=== PATIENT | male | born 1955 | race Caucasian/White ===

== ENCOUNTER 2023-05-15 12:19 | Day surgery (SDC) | payer MEDICARE ==
[2023-05-15] MEDS ORDERED: SUCCINYLCHOLINE CHLORIDE 200 MG/10 ML VIAL IV ONE (13:48)
[2023-05-15] MEDS ORDERED: LIDOCAINE 2% INJ 20 MG/ML (2 ML VIAL) ONE (13:48)
[2023-05-15] MEDS ORDERED: MIDAZOLAM 2 MG/2 ML VIAL ONE (13:48)
[2023-05-15] MEDS ORDERED: PROPOFOL 10 MG/ML 20 ML VIAL IV ONE (13:48)
[2023-05-15] MEDS ORDERED: fentaNYL (PF) 50 MCG/ML 2 ML AMP ONE (13:48)
[2023-05-15 14:31] VITALS: RESP 16; TEMP 97.1
[2023-05-15 15:50] VITALS: BP 113/63; PULSE 103
--- NOTE | 2023-05-15 18:17 | P.PCN ---
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 with mucous plug Significant narrowing of the left mainstem bronchus with tumor invasion and the tumor invasion involving the left mainstem bronchus, left upper lobe bronchus, left lower lobe bronchus and the secondary neisha on the left Procedure(s) Performed: Flexible bronchoscopy Removal of mucous plug from the left mainstem bronchus Airway inspection Endobronchial biopsies of the left mainstem tumor Endobronchial brushing of left mainstem tumor Bronchioloalveolar lavage of the left left lung Anesthesia: MAHADA Surgeon: Jason Panchal Pathology: other Condition: stable Disposition: same day Operative Findings: Flexible bronchoscopy was done in the endoscopy suite. The patient was intubated and placed on a mechanical ventilation. The intubation process was performed by the anesthesia team and the patient was intubated by a #8 orotracheal tube. Following that, the patient was attached a mechanical ventilator. The flexible bronchoscope was introduced through the orotracheal tube and was advanced into the lower trachea. The tip of the orotracheal tube was seen around 2 cm above the neisha. Examination of the right side included the right mainstem bronchus, right upper lobe bronchus, bronchus intermedius, right lower lobe bronchus and the right middle lobe bronchus and the various 10 segments on the right and this was within normal limits. The left mainstem bronchus was then inspected and was completely plugged with a purulent mucous plug. The mucous plug was removed and the underlying left mainstem bronchus was inspected. The left mainstem bronchus was significantly narrowed by tumor that was circumferentially going around airway and causing significant narrowing of the left mainstem bronchus by reducing its lumen by around 60% of its normal dimen phuc/caliber. The tumor was growing around the airway was extending to the distal limits mainstem bronchus and was involving the secondary neisha causing significant narrowing of the left upper lobe bronchus and the left lower lobe bronchus. I was able to pass my bronchoscope into the left lower lobe bronchus and the left upper lobe bronchus and visualized the various segments on the left than the right. Several segments of the left lower lobe were quite atelectatic. The bronchoscope was then moved to the proximal portion of the left mainstem and the bronchial mucosa was inspected. The mucosa itself was irregular, and there was friable tumor growing circumferentially and extending distally. Endobronchial biopsies were done and several chunks of material was removed on the left mainstem bronchus without any major difficulties. There was some endobronchial bleeding postbiopsy and at that point I did a "saline administration to control the bleeding and adequate hemostasis was achieved. Following that, and the bronchial brushing of the left mainstem bronchus was done extending into the secondary neisha. Subsequently, a bronchial lavage of the left lung was done. A total of 60 mL's of saline was infused into the left mainstem bronchus and around 30 mL of aspirate was obtained and after that essentially bloody. At the completion of the procedure, they left mainstem bronchus was patent, boggy airway was Significantly compromised as mentioned and the caliber of the left mainstem bronchus was induced by around 50-60%. The orifice to the left lower lobe bronchus and the left upper lobe bronchus were also narrowed by more than 50%. Therapeutic airway suctioning was done. The bronchoscope was removed and the patient was extubated and transferred to recovery in stable condition. Samples will be sent for pathologic evaluation.
[2023-05-16] MEDS ORDERED: LACTATED RINGERS 1,000 ML IV SCH (06:00)
== END 2023-05-15 16:15 | disposition home or self-care (01) ==
LOC: ORWHC2ENDO 12:19
PROVIDERS: ATTEND Internal Medicine Critical Care Medicine
DX: C34.02 Malignant neoplasm of left main bronchus (principal); J44.9 Chronic obstructive pulmonary disease, unspecified; F17.200 Nicotine dependence, unspecified, uncomplicated; F12.90 Cannabis use, unspecified, uncomplicated; Z79.51 Long term (current) use of inhaled steroids; Z88.5 Allergy status to narcotic agent
CPT/HCPCS: 31623; 87798 ×3; 87496; 87498; 87529; 88104; 88108; 88305; 88342; 87502; 87634; 88341; 87070; 87205; 87116; 87102; 87206; 31625; 31624; J2250; J0330; J3010; J2704; J2001

== ENCOUNTER → 2023-06-08 | Outpatient (CLI) | payer MEDICARE ==
--- NOTE | 2023-06-08 08:52 | MR ---
EXAMINATION TYPE: MR brain wo/w con DATE OF EXAM: 06/08/2023 8:15 AM CLINICAL INDICATION:Male, 67 years old with history of C34.90; PHH, Lung cancer. COMPARISON: 04/21/2023 PETCT TECHNIQUE: Multi planar, multi sequence imaging was performed through the brain including: T1, T2, In version recovery, susceptibility weighted imaging and gradient echo imaging and Diffusion weighted im aging. The patient was then given intravenous contrast and multi planar, T1 fat-saturation images wer e obtained. IV Contrast: 5.5 cc Gadavist FINDINGS: Cerebral atrophy with proportional dilation of the ventricular system. Diffusion-weighted i maging shows no evidence of restricted diffusion to suggest acute/subacute infarct. Intracranial suzanne rial flow voids are maintained. Midline structures show no abnormality. Scattered foci of high T2 sig nal intensity are seen within the periventricular white matter. The susceptibility weighted images do not reveal any evidence for micro-hemorrhage. After administration of gadolinium, no abnormal enhanc ement is seen. The bone marrow signal is within normal limits. Paranasal sinuses and mastoid air cells: No significant paranasal sinus disease. Visualized orbits: Orbital contents are intact. IMPRESSION: 1. No evidence of intracranial mass, acute/subacute infarct, or abnormal enhancement. No evidence for metastatic disease. 2. Minimal nonspecific white matter changes, likely related to small vessel ischemic disease
== END | disposition home or self-care (01) ==
LOC: RADMRIMAIN 07:24
PROVIDERS: ATTEND Internal Medicine
DX: C34.90 Malignant neoplasm of unspecified part of unspecified bronchus or lung (principal); R90.82 White matter disease, unspecified
CPT/HCPCS: 70553; A9585

== ENCOUNTER 2023-09-08 09:45 | Inpatient (IN) | payer MEDICARE ==
[2023-09-08 10:42] LABS: Anisocytosis Slight; Basophils # (A) 0.1 k/uL (0-0.2); Basophils % (A) 0 %; Eosinophils # (A) 0.1 k/uL (0-0.7); Eosinophils % (A) 0 %; HCT 47.6 % (39.0-53.0); HGB 15.9 gm/dL (13.0-17.5); Lymphocytes # (A) 0.5 k/uL (1.0-4.8); Lymphocytes % (A) 3 %; MCH 32.2 pg (25.0-35.0); MCHC 33.4 g/dL (31.0-37.0); MCV 96.4 fL (80.0-100.0); Mean Platelet Volume 7.7; Monocytes # (A) 0.5 k/uL (0-1.0); Monocytes % (A) 3 %; Neutrophils # (A) 14.8 k/uL (1.3-7.7); Neutrophils % (A) 93 %; Platelet Count 541 k/uL (150-450); RBC 4.94 m/uL (4.30-5.90); RDW 16.3 % (11.5-15.5)
[2023-09-08 10:45] LABS: ALT 18 U/L (4-49); AST 30 U/L (17-59); Alkaline Phosphatase 146 U/L (38-126); Anion Gap 21 mmol/L; Blood Urea Nitrogen 35 mg/dL (9-20); Calcium 8.9 mg/dL (8.4-10.2); Carbon Dioxide 23 mmol/L (22-30); Chloride 83 mmol/L (98-107); Glucose 88 mg/dL (74-99); Magnesium 2.5 mg/dL (1.6-2.3); Potassium 5.4 mmol/L (3.5-5.1); Sodium 127 mmol/L (137-145); Total Bilirubin 1.5 mg/dL (0.2-1.3); Total Protein 6.8 g/dL (6.3-8.2)
[2023-09-08 10:50] LABS: African American GFR (CKD) 58 (>60 ml/min/1.73 sqM); Non-African American GFR(CKD) 50 (>60 ml/min/1.73 sqM)
[2023-09-08 10:53] LABS: NT-Pro-B-Type Natriuretic Pept 4600 pg/mL
--- NOTE | 2023-09-08 11:51 | XR ---
EXAMINATION TYPE: XR chest 2V DATE OF EXAM: 09/08/2023 11:24 AM CLINICAL INDICATION:Male, 68 years old with history of difficulty breathing; PHH COMPARISON: None TECHNIQUE: XR chest 2V Frontal and lateral views of the chest. FINDINGS: Lungs/Pleura: There is no evidence of pleural effusion, focal consolidation, or pneumothorax. Pulmonary vascularity: Unremarkable. Heart/mediastinum: Cardiomediastinal silhouette is unremarkable. Musculoskeletal: No acute osseous pathology. Other findings: Curvilinear lucency compatible the diaphragm with adjacent free air under the diaphra gm is present measuring bilaterally. IMPRESSION: There is free air under the diaphragm further evaluation of the abdomen and pelvis is recommended. Findings communicated to Dr. Carter Kerr MD on 09/08/2023 11:[address] Baldemar Chirinos.
[2023-09-08] MEDS: metroNIDAZOLE-NS PMX 500 MG in SALINE 1 100ML.BAG IVPB SCH ×2 (12:04→20:39)
[2023-09-08] MEDS ORDERED: VANCOMYCIN IV PER PHARMACY 1 EACH MISC MISCELLANE PRN (13:28)
[2023-09-08] MEDS ORDERED: VANCOMYCIN 1,000 MG in SODIUM CHLORIDE 0.9% 250 ML IVPB STA (13:30)
[2023-09-08] MEDS: PIPERACILLIN-TAZOBACTAM 3.375 GM in SODIUM CHLORIDE 0.9% 100 ML IVPB SCH ×2 (13:31→20:39)
[2023-09-08] MEDS ORDERED: SODIUM CHLORIDE 0.9% 500 ML 500 ML IV STA (13:32)
[2023-09-08] MEDS ORDERED: NALOXONE 0.4 MG/ML 1 ML VIAL IV PRN (13:32)
--- NOTE | 2023-09-08 13:33 | CT ---
EXAMINATION TYPE: CT ChestAbdPelvis wo con DATE OF EXAM: 09/08/2023 COMPARISON: Radiograph chest same day HISTORY: 68-year-old male Free air under diaphragm TECHNIQUE: Contiguous axial scanning of the chest, abdomen, and pelvis without IV contrast. Coronal a nd sagittal reconstructions performed. CT DLP: 422.8 mGycm Automated exposure control for dose reduction was used. FINDINGS: Heart normal size without pericardial effusion. Three-vessel coronary artery calcifications. Ectatic ascending aorta 3.6 cm. Conventional arch vessel branching anatomy. No thoracic lymphadenopathy by CT size criteria. There is advanced emphysematous change. Dependent consolidation throughout the left lower lobe and pa tchy changes dependent left upper lobe and lingula as well. Dependent consolidation shows a 6.3 x 2.5 cm oval area of fluid, possible pulmonary abscess. There appears to be destruction of the overlying ninth and 10th posterior ribs. Lesser degree of patchy and confluent consolidation and some groundglass at the right lower lobe and right base. Moderate atherosclerotic calcifications throughout the abdominal aorta and iliac arteries. Noncontrast appearance of the liver, adrenal glands, kidneys, and pancreas show no gross abnormality though lack of IV contrast and underlying mild ascites fluid and anasarca significantly limits evalua tion. Numerous calcified granulomas in the spleen. There is moderate to large free intraperitoneal air. Scattered distended small bowel loops up to 3.6 cm, coronal image 34. Numerous small foci of air are present throughout the pelvis. Unable to exclude some areas of small b owel or sigmoid colonic pneumatosis. No significant stool burden. Mild to moderate pelvic ascites. Bladder is urine distended. Prostate gland borderline enlarged at 4.1 cm wide. Bones: Digital abdomen and lower thoracic spine. Dextroconvex curvature may be positional. IMPRESSION: 1. MODERATE TO LARGE FREE INTRAPERITONEAL AIR. THE EXACT SOURCE IS NOT CLEAR. THERE ARE NUMEROUS SMAL L FOCI OF AIR WITHIN THE PELVIS WHICH COULD REPRESENT SMALL BOWEL OR SIGMOID COLONIC PNEUMATOSIS AND POSSIBLE SITE OF HOLLOW VISCUS PERFORATION. 2. REACTIVE MILD TO MODERATE ABDOMINOPELVIC ASCITES. 3. SIGNIFICANTLY, THERE IS BIBASILAR CONSOLIDATION, LEFT GREATER THAN RIGHT. CORRELATE FOR INFECTIOUS OR ASPIRATION PNEUMONITIS. ON THE LEFT, THERE IS AN INTERNAL AREA OF 6.3 CM FLUID. ADDITIONAL HISTOR Y FROM THE ER AFTER PATIENT BEING TREATED FOR LUNG CANCER. CONSIDER NECROTIC TUMOR (POSSIBLY WITH SUP ERINFECTION) VERSUS PULMONARY ABSCESS. THE FORMER IS SOMEWHAT FAVORED GIVEN DESTRUCTION OF THE OVERLY ING LEFT POSTERIOR NINTH AND 10TH RIBS. BACKGROUND MODERATE TO SEVERE COPD. FINDINGS CALLED TO DR. ELIZABETH IN THE ER AT 1:28 PM.
[2023-09-08] MEDS ORDERED: ALBUTEROL NEBULIZED 2.5 MG/3 ML INHALATION PRN (13:35)
--- NOTE | 2023-09-08 14:26 | ED ---
General Adult HPI - General Chief complaint: Weakness Stated complaint: SIENNA, Weakness Time Seen by Provider: 09/08/23 10:02 Source: patient, RN notes reviewed, old records reviewed Mode of arrival: ambulatory Limitations: no limitations - History of Present Illness Initial comments: Patient is a 68-year-old male with past medical history remarkable for lung cancer, currently undergoing chemotherapy who presents emergency Department complaining of lower extremity edema, shortness of breath. Last received chemo within the last 1-2 weeks. States his symptoms have been ongoing for the last 3 weeks but difficulty in breathing and leg swelling worse over the last 4-5 days. Denies any fevers, chills, significant cough. Endorses orthopnea. Denies PND. Presents for further evaluation at this time. Denies chest pain or cardiac history. - Related Data Home Medications Medication Instructions Recorded Confirmed Albuterol Inhaler [Ventolin Hfa 1 - 2 puff INHALATION RT-QID PRN 05/12/23 09/08/23 Inhaler] Morphine Sulfate ER [Ms Contin] 15 mg PO BID@0600,1800 09/08/23 09/08/23 Sennosides/Docusate Sodium [Senna 2 tab PO BID@0600,1800 09/08/23 09/08/23 Plus 8.6-50 mg Tablet] Allergies Allergy/AdvReac Type Severity Reaction Status Date / Time codeine Allergy Rash/Hives Verified 09/08/23 12:01 Review of Systems ROS Statement: Those systems with pertinent positive or pertinent negative responses have been documented in the HPI. Review of Systems: CONST: Denies fever EYES: Denies blurry vision ENT: Denies nasal congestion C/V: Denies Chest pain RESP: Endorses shortness of breath GI: Denies abdominal pain : Denies dysuria SKIN: Denies rash. MSK: Denies joint pain. NEURO: Denies headache ROS Other: All systems not noted in ROS Statement are negative. Past Medical History Past Medical History: Cancer Additional Past Medical History / Comment(s): uses albuterol to "Loosen up his lungs"; lung cancer History of Any Multi-Drug Resistant Organisms: None Reported Past Surgical History: Orthopedic Surgery, Tonsillectomy Additional Past Surgical History / Comment(s): fx humurus repair on lft Past Anesthesia/Blood Transfusion Reactions: No Reported Reaction Past Psychological History: No Psychological Hx Reported Smoking Status: Former smoker Past Alcohol Use History: Occasional General Exam - General Exam Comments Initial Comments: General: Appears in no acute distress. Patient is cachectic. HEAD: Normal with no signs of head trauma. EYES: PERRLA, EOMI, conjunctiva normal, no discharge. ENT: Hearing grossly intact, normal oropharynx. RESPIRATORY: Increased work of breathing. Hypoxic on remained 85-86%. Coarse breath sounds bilaterally. C/V: Regular rate and rhythm. S1 and S2 auscultated, no edema, peripheral pulses 2+ and intact throughout ABD: Abd is soft, nontender, nondistended EXT: Normal range of motion, no obvious deformity SKIN: No rashes or lesions observed on exposed skin. NEURO: Alert and oriented 4. Limitations: no limitations Course Vital Signs 09/08/23 09/08/23 09/08/23 09:47 10:44 10:50 Temperature 96.8 F L Pulse Rate 87 98 96 Pulse Rate [ Social Insurance Analyst ] Respiratory 18 25 H 20 Rate Blood Pressure 98/67 99/60 O2 Sat by Pulse 86 L 93 L 96 Oximetry 09/08/23 09/08/23 09/08/23 11:00 11:51 12:00 Temperature Pulse Rate 87 97 Pulse Rate [ 92 Social Insurance Analyst ] Respiratory 18 22 22 Rate Blood Pressure 99/60 103/62 O2 Sat by Pulse 96 96 Oximetry 09/08/23 09/08/23 09/08/23 13:00 13:31 14:00 Temperature Pulse Rate 90 91 85 Pulse Rate [ Social Insurance Analyst ] Respiratory 18 20 15 Rate Blood Pressure 92/63 101/70 101/70 O2 Sat by Pulse 97 92 L 85 L Oximetry Medical Decision Making - Medical Decision Making Was pt. sent in by a medical professional or institution (, PA, ARBORICULTURIST, urgent care, hospital, or fci...) When possible be specific @ -No Did you speak to anyone other than the patient for history (EMS, parent, family, police, friend...)? What history was obtained from this source @ -No Did you review nursing and triage notes (agree or disagree)? Why? @ -I reviewed and agree with nursing and triage notes Were old charts reviewed (outside hosp., previous admission, EMS record, old EKG, old radiological studies, urgent care reports/EKG's, fci records)? Report findings @ -Old charts reviewed Differential Diagnosis (chest pain, altered mental status, abdominal pain women, abdominal pain men, vaginal bleeding, weakness, fever, dyspnea, syncope, headache, dizziness, GI bleed, back pain, seizure, CVA, palpatations, mental health, musculoskeletal)? @ -Differential Dyspnea: Coronary syndrome, arrhythmia, tamponade, asthma, COPD, pulmonary embolism, pneumonia, pneumothorax, pulmonary effusion, anaphylaxis, diabetic ketoacidosis, flailed chest, pulmonary contusion, diaphragmatic rupture, anemia, neuromuscular, this is not meant to be an all-inclusive list. EKG interpreted by me (3pts min.). @ -As above X-rays interpreted by me (1pt min.). @ -Chest x-ray does reveal what appears to be pulmonary vascular congestion as well as the left lung mass in addition to free air under the diaphragm. CT interpreted by me (1pt min.). @ -CT chest abdomen pelvis remarkable for intraperitoneal free air without exact source. May have a sigmoid colonic pneumatosis. No obvious site for the hollow viscus perforation. Radiology also concerned for possible necrotic tumor on the left. U/S interpreted by me (1pt. min.). @ -None done What testing was considered but not performed or refused? (CT, X-rays, U/S, labs)? Why? @ -None What meds were considered but not given or refused? Why? @ -Considered additional IV fluids over patient's lactic acid cleared with oxygen as well as a small fluid bolus. Patient has what appears to be CHF currently and we will continue to closely monitor his volume overload him. Did you discuss the management of the patient with other professionals (professionals i.e. , PA, ARBORICULTURIST, lab, RT, psych nurse, social organization professor, analytics lead, teacher, upscale security officer, rifle case repairer)? Give summary @ -Discussed with Dr. Rooney the on-call surgeon who reportedly patient for the operating room. Was in agreement with broad-spectrum antibiotics, and requested IV fluids which were administered. However, we will closely monitor additional fluids due to concern for CHF that she was in agreement with this lines lactic acid improved. I spoke with Dr. Culver the patient's PCP who was in agreement with the plan for medical consultation. Was smoking cessation discussed for >3mins.? @ -No Was critical care preformed (if so, how long)? @ -yes, 52 minutes Were there social determinants of health that impacted care today? How? (Homelessness, low income, unemployed, alcoholism, drug addiction, transportation, low edu. Level, literacy, decrease access to med. care, group home, rehab)? @ -No Was there de-escalation of care discussed even if they declined (Discuss DNR or withdrawal of care, Hospice)? DNR status @ -Yes, confirmed full CODE STATUS. What co-morbidities impacted this encounter? (DM, HTN, Smoking, COPD, CAD, Cancer, CVA, ARF, Chemo, Hep., AIDS, mental health diagnosis, sleep apnea, morbid obesity)? @ -Lung cancer Was patient admitted / discharged? Hospital course, mention meds given and route, prescriptions, significant lab abnormalities, going to OR and other pertinent info. @ -Based on the patient's presentation and physical exam, I'm concerned for cardio pulmonary etiology for his current symptoms. We will obtain chest x-ray, cardiopulmonary labs, vital signs. He was placed on oxygen and did respond well. Patient agreement this plan. Vital signs improved on oxygen. Patient's laboratory studies are remarkable for elevated BNP, leukocytosis of 16, lactic acidosis of 3.3. Patient also has a mild hyperkalemia of 5.4 as well as hyponatremia of 127. Patient has a acute kidney injury as well. Chest x-ray showed free air under the diaphragm. I discussed this with the patient we will obtain CT chest abdomen pelvis. At this time I did speak with Dr. Rooney who was in agreement with the plan for CT. Patient started on broad- spectrum antibiotics, blood cultures sent. Lactic acidosis likely secondary to hypoxia but Dr. Rooney requested 500 mL fluid bolus which was administered at this time. We will repeat lactic acid is well. He was in agreement this plan. CT revealed no obvious source for the intra-abdominal free air. Patient does have what appears to be a necrotic lung tumor. Patient's lactic acid did improve, and we will hold further fluids for now in the ER. Discussed the results of Dr. Rooney as well as the patient. Patient was boarded for the operating room. Patient in agreement this plan. He did confirm he is full code. I spoke the patient's PCP who was consulted for medical management he was in agreement this plan Dr. Culver. I also consulted cardiology for suspected new onset CHF as well as the patient's oncologist Dr. Lazcano. Undiagnosed new problem with uncertain prognosis? @ -No Drug Therapy requiring intensive monitoring for toxicity (Heparin, Nitro, Insulin, Cardizem)? @ -No Were any procedures done? @ -No Diagnosis/symptom? @ -CHF, volume overload, hypoxic respiratory failure, pneumoperitoneum,PAM Acute, or Chronic, or Acute on Chronic? @ -Acute Uncomplicated (without systemic symptoms) or Complicated (systemic symptoms)? @ -Complicated. Side effects of treatment? @ -No Exacerbation, Progression, or Severe Exacerbation? @ -No Poses a threat to life or bodily function? How? (Chest pain, USA, ID, pneumonia, PE, COPD, DKA, ARF, appy, cholecystitis, CVA, Diverticulitis, Homicidal, Suicidal, threat to staff... and all critical care pts) @ -Yes Diagnosis/symptom? @ -lung cancer Acute, or Chronic, or Acute on Chronic? @ -Chronic Uncomplicated (without systemic symptoms) or Complicated (systemic symptoms)? @ -Complicated Side effects of treatment? @ -none Exacerbation, Progression, or Severe Exacerbation] @ -no Poses a threat to life or bodily function? @ -Yes - Lab Data Result diagrams: 09/08/23 10:25 09/08/23 10:25 Lab Results 09/08/23 09/08/23 09/08/23 Range/Units 10:25 10:25 10:25 WBC 16.0 H (3.8-10.6) k/uL RBC 4.94 (4.30-5.90) m/uL Hgb 15.9 (13.0-17.5) gm/dL Hct 47.6 (39.0-53.0) % MCV 96.4 (80.0-100.0) fL MCH 32.2 (25.0-35.0) pg MCHC 33.4 (31.0-37.0) g/dL RDW 16.3 H (11.5-15.5) % Plt Count 541 H (150-450) k/uL MPV 7.7 Neutrophils % 93 % Lymphocytes % 3 % Monocytes % 3 % Eosinophils % 0 % Basophils % 0 % Neutrophils # 14.8 H (1.3-7.7) k/uL Lymphocytes # 0.5 L (1.0-4.8) k/uL Monocytes # 0.5 (0-1.0) k/uL Eosinophils # 0.1 (0-0.7) k/uL Basophils # 0.1 (0-0.2) k/uL Manual Slide Review Performed Anisocytosis Slight PT 11.0 (10.0-12.5) sec INR 1.0 (<1.2) APTT 27.0 (22.0-30.0) sec Sodium 127 L (137-145) mmol/L Potassium 5.4 H (3.5-5.1) mmol/L Chloride 83 L (98-107) mmol/L Carbon Dioxide 23 (22-30) mmol/L Anion Gap 21 mmol/L BUN 35 H (9-20) mg/dL Creatinine 1.43 H (0.66-1.25) mg/dL Est GFR (CKD-EPI)AfAm 58 (>60 ml/min/1.73 sqM) Est GFR (CKD-EPI)NonAf 50 (>60 ml/min/1.73 sqM) Glucose 88 (74-99) mg/dL Lactic Ac Sepsis Rflx Plasma Lactic Acid David (0.7-2.0) mmol/L Calcium 8.9 (8.4-10.2) mg/dL Magnesium 2.5 H (1.6-2.3) mg/dL Total Bilirubin 1.5 H (0.2-1.3) mg/dL AST 30 (17-59) U/L ALT 18 (4-49) U/L Alkaline Phosphatase 146 H (38-126) U/L Troponin I (0.000-0.034) ng/mL NT-Pro-B Natriuret Pep 4600 pg/mL Total Protein 6.8 (6.3-8.2) g/dL Albumin 3.0 L (3.5-5.0) g/dL Influenza Type A (PCR) (Not Detectd) Influenza Type B (PCR) (Not Detectd) RSV (PCR) (Not Detectd) SARS-CoV-2 (PCR) (Not Detectd) 09/08/23 09/08/23 09/08/23 Range/Units 10:25 10:25 10:25 WBC (3.8-10.6) k/uL RBC (4.30-5.90) m/uL Hgb (13.0-17.5) gm/dL Hct (39.0-53.0) % MCV (80.0-100.0) fL MCH (25.0-35.0) pg MCHC (31.0-37.0) g/dL RDW (11.5-15.5) % Plt Count (150-450) k/uL MPV Neutrophils % % Lymphocytes % % Monocytes % % Eosinophils % % Basophils % % Neutrophils # (1.3-7.7) k/uL Lymphocytes # (1.0-4.8) k/uL Monocytes # (0-1.0) k/uL Eosinophils # (0-0.7) k/uL Basophils # (0-0.2) k/uL Manual Slide Review Anisocytosis PT (10.0-12.5) sec INR (<1.2) APTT (22.0-30.0) sec Sodium (137-145) mmol/L Potassium (3.5-5.1) mmol/L Chloride (98-107) mmol/L Carbon Dioxide (22-30) mmol/L Anion Gap mmol/L BUN (9-20) mg/dL Creatinine (0.66-1.25) mg/dL Est GFR (CKD-EPI)AfAm (>60 ml/min/1.73 sqM) Est GFR (CKD-EPI)NonAf (>60 ml/min/1.73 sqM) Glucose (74-99) mg/dL Lactic Ac Sepsis Rflx Plasma Lactic Acid David 3.3 H* (0.7-2.0) mmol/L Calcium (8.4-10.2) mg/dL Magnesium (1.6-2.3) mg/dL Total Bilirubin (0.2-1.3) mg/dL AST (17-59) U/L ALT (4-49) U/L Alkaline Phosphatase (38-126) U/L Troponin I 0.017 (0.000-0.034) ng/mL NT-Pro-B Natriuret Pep pg/mL Total Protein (6.3-8.2) g/dL Albumin (3.5-5.0) g/dL Influenza Type A (PCR) Not Detected (Not Detectd) Influenza Type B (PCR) Not Detected (Not Detectd) RSV (PCR) Not Detected (Not Detectd) SARS-CoV-2 (PCR) Not Detected (Not Detectd) 09/08/23 Range/Units 11:27 WBC (3.8-10.6) k/uL RBC (4.30-5.90) m/uL Hgb (13.0-17.5) gm/dL Hct (39.0-53.0) % MCV (80.0-100.0) fL MCH (25.0-35.0) pg MCHC (31.0-37.0) g/dL RDW (11.5-15.5) % Plt Count (150-450) k/uL MPV Neutrophils % % Lymphocytes % % Monocytes % % Eosinophils % % Basophils % % Neutrophils # (1.3-7.7) k/uL Lymphocytes # (1.0-4.8) k/uL Monocytes # (0-1.0) k/uL Eosinophils # (0-0.7) k/uL Basophils # (0-0.2) k/uL Manual Slide Review Anisocytosis PT (10.0-12.5) sec INR (<1.2) APTT (22.0-30.0) sec Sodium (137-145) mmol/L Potassium (3.5-5.1) mmol/L Chloride (98-107) mmol/L Carbon Dioxide (22-30) mmol/L Anion Gap mmol/L BUN (9-20) mg/dL Creatinine (0.66-1.25) mg/dL Est GFR (CKD-EPI)AfAm (>60 ml/min/1.73 sqM) Est GFR (CKD-EPI)NonAf (>60 ml/min/1.73 sqM) Glucose (74-99) mg/dL Lactic Ac Sepsis Rflx Y Plasma Lactic Acid David (0.7-2.0) mmol/L Calcium (8.4-10.2) mg/dL Magnesium (1.6-2.3) mg/dL Total Bilirubin (0.2-1.3) mg/dL AST (17-59) U/L ALT (4-49) U/L Alkaline Phosphatase (38-126) U/L Troponin I (0.000-0.034) ng/mL NT-Pro-B Natriuret Pep pg/mL Total Protein (6.3-8.2) g/dL Albumin (3.5-5.0) g/dL Influenza Type A (PCR) (Not Detectd) Influenza Type B (PCR) (Not Detectd) RSV (PCR) (Not Detectd) SARS-CoV-2 (PCR) (Not Detectd) - EKG Data -: EKG Interpreted by Me EKG Comments: 12-lead Electrocardiogram Interpretation Note EKG was reviewed and interpreted by myself. 12-lead ECG performed at 1002 is interpreted by me as revealing normal sinus rhythm at a rate of 93 beats per minute. [place] is normal. CT interval is 170 ms, QRS durations 88 ms, QTc is 397 ms.. There were no ST or T wave abnormalities to suggest myocardial ischemia or injury. R wave progression across the precordium was satisfactory. By my interpretation this EKG is non-diagnostic for acute ischemia. A good deal of motion artifact in lead V3. Critical Care Time Critical Care Time: Yes Total Critical Care Time: 52 Disposition Clinical Impression: Hypoxic respiratory failure, Hyponatremia, CHF (congestive heart failure), PAM (acute kidney injury), Pneumoperitoneum of unknown etiology, Lung cancer Disposition: ADMITTED IP TO THIS HOSP Condition: Serious Time of Disposition: 13:20
[2023-09-08] MEDS ORDERED: SODIUM CHLORIDE 0.9% 1,000 ML IV ONE ×4 (14:30→18:00)
[2023-09-08] MEDS ORDERED: MIDAZOLAM 2 MG/2 ML VIAL IVP ONE (14:45)
[2023-09-08] MEDS ORDERED: fentaNYL (PF) 50 MCG/1 ML VIAL IVP ONE (14:45)
[2023-09-08] MEDS ORDERED: LIDOCAINE 1% INJ 10MG/ML (20 ML MDV) ONE (15:30)
[2023-09-08] MEDS ORDERED: PROPOFOL 10 MG/ML 20 ML VIAL IV ONE (15:30)
[2023-09-08] MEDS ORDERED: PHENYLEPHRINE 10 MG/ML VIAL ONE (15:30)
[2023-09-08] MEDS ORDERED: fentaNYL (PF) 50 MCG/ML 2 ML AMP ONE (15:30)
[2023-09-08] MEDS ORDERED: MIDAZOLAM 2 MG/2 ML VIAL ONE (15:30)
[2023-09-08] MEDS ORDERED: ROCURONIUM 10 MG/ML (5 ML VIAL) IV ONE (15:30)
--- NOTE | 2023-09-08 15:33 | P.GSHP ---
History of Present Illness H&P Date: 09/08/23 Chief Complaint: Pneumoperitoneum 68-year-old male presents to the ER with weakness. Patient has had chronic shortness of breath for the last several months. Diagnosed over the summer with left lung cancer. Underwent radiation and currently on chemotherapy. Apparently has had significant issues with constipation. Over the last 1-2 weeks has had vague abdominal pain. Came to the hospital today for closer evaluation. Much of the history obtained from the family. Patient had x-rays showing large volume free air. CAT scan then performed showing some ascites along with large volume hemoperitoneum. No bowel contrast was utilized. Patient's BMI is quite low. There is no visceral fat. Multiple small bubbles in the pelvis suggest possible colonic source of perforation. Patient with lower extremity edema and tachypnea. Initially there was concern for CHF. A fter discussion with ER fluid boluses were initiated. Patient was started on broad-spectrum antibiotics. Patient is afebrile. No tachycardia. - Review of Systems Comment: The patient denies any acute changes in vision or hearing, no dysphagia or odynophagia, no chest pain or no dysuria or hematuria, no headache, no runny nose, no rectal bleeding or melena, no unexplained weight loss Past Medical History Past Medical History: Cancer Additional Past Medical History / Comment(s): uses albuterol to "Loosen up his lungs"; lung cancer History of Any Multi-Drug Resistant Organisms: None Reported Past Surgical History: Orthopedic Surgery, Tonsillectomy Additional Past Surgical History / Comment(s): fx humurus repair on lft Past Anesthesia/Blood Transfusion Reactions: No Reported Reaction Past Psychological History: No Psychological Hx Reported Smoking Status: Former smoker Past Alcohol Use History: Occasional Medications and Allergies Home Medications Medication Instructions Recorded Confirmed Type Albuterol Inhaler [Ventolin Hfa 1 - 2 puff INHALATION RT-QID PRN 05/12/23 09/08/23 History Inhaler] Morphine Sulfate ER [Ms Contin] 15 mg PO BID@0600,1800 09/08/23 09/08/23 History Sennosides/Docusate Sodium [Senna 2 tab PO BID@0600,1800 09/08/23 09/08/23 History Plus 8.6-50 mg Tablet] Allergies Allergy/AdvReac Type Severity Reaction Status Date / Time codeine Allergy Rash/Hives Verified 09/08/23 12:01 Surgical - Exam Vital Signs Temp Pulse Resp BP Pulse Ox 96.8 F L 87 18 98/67 86 L 09/08/23 09:47 09/08/23 09:47 09/08/23 09:47 09/08/23 09:47 09/08/23 09:47 Physical exam: General: Well-developed, severely malnourished appearing HEENT: Normocephalic, sclerae nonicteric Abdomen: Mild distention, moderate diffuse tenderness Extremities: Mottled lower extremities with bruising upper extremities from recent blood draws Neuro: Mildly confused Results - Labs 09/08/23 10:25 09/08/23 10:25 Abnormal Lab Results - Last 24 Hours (Table) 09/08/23 09/08/23 09/08/23 Range/Units 10:25 10:25 10:25 WBC 16.0 H (3.8-10.6) k/uL RDW 16.3 H (11.5-15.5) % Plt Count 541 H (150-450) k/uL Neutrophils # 14.8 H (1.3-7.7) k/uL Lymphocytes # 0.5 L (1.0-4.8) k/uL Sodium 127 L (137-145) mmol/L Potassium 5.4 H (3.5-5.1) mmol/L Chloride 83 L (98-107) mmol/L BUN 35 H (9-20) mg/dL Creatinine 1.43 H (0.66-1.25) mg/dL Plasma Lactic Acid David 3.3 H* (0.7-2.0) mmol/L Magnesium 2.5 H (1.6-2.3) mg/dL Total Bilirubin 1.5 H (0.2-1.3) mg/dL Alkaline Phosphatase 146 H (38-126) U/L Albumin 3.0 L (3.5-5.0) g/dL Diabetes panel 09/08/23 Range/Units 10:25 Sodium 127 L (137-145) mmol/L Potassium 5.4 H (3.5-5.1) mmol/L Chloride 83 L (98-107) mmol/L Carbon Dioxide 23 (22-30) mmol/L BUN 35 H (9-20) mg/dL Creatinine 1.43 H (0.66-1.25) mg/dL Glucose 88 (74-99) mg/dL Calcium 8.9 (8.4-10.2) mg/dL AST 30 (17-59) U/L ALT 18 (4-49) U/L Alkaline Phosphatase 146 H (38-126) U/L Total Protein 6.8 (6.3-8.2) g/dL Albumin 3.0 L (3.5-5.0) g/dL Calcium panel 09/08/23 Range/Units 10:25 Calcium 8.9 (8.4-10.2) mg/dL Albumin 3.0 L (3.5-5.0) g/dL Pituitary panel 09/08/23 Range/Units 10:25 Sodium 127 L (137-145) mmol/L Potassium 5.4 H (3.5-5.1) mmol/L Chloride 83 L (98-107) mmol/L Carbon Dioxide 23 (22-30) mmol/L BUN 35 H (9-20) mg/dL Creatinine 1.43 H (0.66-1.25) mg/dL Glucose 88 (74-99) mg/dL Calcium 8.9 (8.4-10.2) mg/dL Adrenal panel 09/08/23 Range/Units 10:25 Sodium 127 L (137-145) mmol/L Potassium 5.4 H (3.5-5.1) mmol/L Chloride 83 L (98-107) mmol/L Carbon Dioxide 23 (22-30) mmol/L BUN 35 H (9-20) mg/dL Creatinine 1.43 H (0.66-1.25) mg/dL Glucose 88 (74-99) mg/dL Calcium 8.9 (8.4-10.2) mg/dL Total Bilirubin 1.5 H (0.2-1.3) mg/dL AST 30 (17-59) U/L ALT 18 (4-49) U/L Alkaline Phosphatase 146 H (38-126) U/L Total Protein 6.8 (6.3-8.2) g/dL Albumin 3.0 L (3.5-5.0) g/dL Assessment and Plan (1) Pneumoperitoneum of unknown etiology Narrative/Plan: 68-year-old male with pneumoperitoneum and suspected bowel perforation. Options reviewed with patient and family in detail. We'll proceed with exploratory laparotomy at this time. Possible need for bowel resection and/or ostomy based on intraoperative findings. Risks of bleeding, infection, abscess, respiratory and cardiac failure, intraoperative all discussed in detail. They understand and wish to proceed. Current Visit: Yes Status: Acute Code(s): K66.8 - OTHER SPECIFIED DISORDERS OF PERITONEUM SNOMED Code(s): 76980476
--- NOTE | 2023-09-08 15:48 | P.CNPUL ---
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 He received 1 week of radiation therapy and is currently receiving chemotherapy. He presented to the emergency room earlier today with complaints of abdominal pain for the past 1-2 weeks. Chest x-ray revealed free air under the diaphragm. Computed tomography scan of the chest abdomen pelvis revealed moderate to large free intraperitoneal air. Exact source is unclear. There are numerous small foci of air within the pelvis which could represent small bowel or sigmoid colonic pneumatosis and possible site of hollow viscus perforation. There is reactive mild to moderate abdominopelvic ascites. There is bibasilar consolidation left greater than right. There is an internal area of 6.3 cm fluid. Possibly related to known lung cancer. Consider necrotic tumor versus pulmonary abscess.. Evidence of destruction of the overlying left posterior ninth and 10th ribs. Moderate to severe COPD. Count 16.0. Hemoglobin 15.9. Platelets 541. Sodium 127. Potassium 5.4. Bicarb 23. BUN 35. Creatinine 1.43. Lactic acid 3.3. ProBNP 4600. Viral screen negative. Alessandro tubbs will be taken urgently to the operating room. He most likely will require prolonged mechanical ventilation postoperatively and we're consulted for the same. He is seen in the preoperative area. He is quite cachectic. BMI of 16.2 kg/m. He is awake and alert. He does have abdominal discomfort. He denies any worsening shortness of breath, cough or congestion. He is maintaining O2 saturations in the 90s on 2 L/m per nasal cannula. At one point he was 85% saturations on room air. He has an albuterol HFA that he uses at home. He is not oxygen dependent. Family is at the bedside. Review of Systems REVIEW OF SYSTEMS: CONSTITUTIONAL: Denies any recent significant weight loss or weight gain. EYES: Denies change in vision. EARS, NOSE, MOUTH, THROAT: Denies headaches, denies sore throat. CARDIOVASCULAR: Denies chest pain, palpitations or syncopal episodes. RESPIRATORY: Denies shortness of breath, cough, congestion or hemoptysis. GASTROINTESTINAL: Positive for abdominal pain and distention. GENITOURINARY: Denies hematuria, denies infections. MUSKULOSKELETAL: Denies pain, denies swelling. INTEGUMENTARY: Denies rash, denies eczema. NEUROLOGICAL: Denies recent memory loss, no recent seizure activity. PSYCHIATRIC: Denies anxiety, denies depression. HEMATOLOGIC/LYMPHATIC: Denies anemia, denies enlarged lymph nodes. Past Medical History Past Medical History: Cancer Additional Past Medical History / Comment(s): uses albuterol to "Loosen up his lungs"; lung cancer History of Any Multi-Drug Resistant Organisms: None Reported Past Surgical History: Orthopedic Surgery, Tonsillectomy Additional Past Surgical History / Comment(s): fx humurus repair on lft Past Anesthesia/Blood Transfusion Reactions: No Reported Reaction Past Psychological History: No Psychological Hx Reported Smoking Status: Former smoker Past Alcohol Use History: Occasional Medications and Allergies Home Medications Medication Instructions Recorded Confirmed Type Albuterol Inhaler [Ventolin Hfa 1 - 2 puff INHALATION RT-QID PRN 05/12/23 09/08/23 History Inhaler] Morphine Sulfate ER [Ms Contin] 15 mg PO BID@0600,1800 09/08/23 09/08/23 History Sennosides/Docusate Sodium [Senna 2 tab PO BID@0600,1800 09/08/23 09/08/23 History Plus 8.6-50 mg Tablet] Allergies Allergy/AdvReac Type Severity Reaction Status Date / Time codeine Allergy Rash/Hives Verified 09/08/23 12:01 Physical Exam Vitals: Vital Signs Temp Pulse Pulse Resp BP Pulse Ox 09/08/23 14:00 85 15 101/70 85 L 09/08/23 13:31 91 20 101/70 92 L 09/08/23 13:00 90 18 92/63 97 09/08/23 12:00 97 22 103/62 96 09/08/23 11:51 92 22 09/08/23 11:00 87 18 99/60 96 09/08/23 10:50 96 20 99/60 96 09/08/23 10:44 98 25 H 93 L 09/08/23 09:47 96.8 F L 87 18 98/67 86 L Intake and Output 09/08/23 09/08/23 09/08/23 06:59 14:59 22:59 Other: Weight 51.256 kg GENERAL EXAM: Alert, weak, cachectic 68-year-old male, appears older than stated age, on 2 L nasal cannula. HEAD: Normocephalic. EYES: Normal reaction of pupils, equal size. NOSE: Clear with pink turbinates. THROAT: No erythema or exudates. NECK: No masses, no JVD. Right IJ triple-lumen catheter in place. CHEST: No chest wall deformity. LUNGS: Equal air entry with few scattered rhonchi bilaterally. CVS: S1 and S2 normal with no audible murmur, regular rhythm. ABDOMEN: Tender to palpation, distended. SPINE: No scoliosis or deformity SKIN: No rashes CENTRAL NERVOUS SYSTEM: No focal deficits, tone is normal in all 4 extremities. EXTREMITIES: There is no peripheral edema. No clubbing, no cyanosis. Peripheral pulses are intact. Results - Laboratory Findings CBC and BMP: 09/08/23 10:25 09/08/23 10:25 PT/INR, D-dimer PT 11.0 sec (10.0-12.5) 09/08/23 10:25 INR 1.0 (<1.2) 09/08/23 10:25 Abnormal lab findings: Abnormal Labs 09/08/23 09/08/23 09/08/23 10:25 10:25 10:25 WBC 16.0 H RDW 16.3 H Plt Count 541 H Neutrophils # 14.8 H Lymphocytes # 0.5 L Sodium 127 L Potassium 5.4 H Chloride 83 L BUN 35 H Creatinine 1.43 H Plasma Lactic Acid David 3.3 H* Magnesium 2.5 H Total Bilirubin 1.5 H Alkaline Phosphatase 146 H Albumin 3.0 L - Diagnostic Findings Chest x-ray: image reviewed CT scan - chest: image reviewed Assessment and Plan Assessment: Abdominal pain secondary to moderate to large free intraperitoneal air. The exact source is not clear. There are numerous small foci of air within the pelvis which could represent small bowel or sigmoid colonic pneumatosis and possible site of follow viscus perforation. 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 Computed tomography scan of the chest reveals bibasilar consolidation, left greater than right. Correlate for infectious or aspiration pneumonitis. On the left there is an internal area of 6.3 cm fluid. Consider necrotic tumor possibly with superinfection versus pulmonary abscess. There is destruction of the overlying left posterior ninth and 10th ribs Moderate to severe chronic obstructive pulmonary disease Former smoker Severe cachexia with a BMI of 16.2 kg per metered squared Plan: The patient was seen and evaluated Chest x-ray, computed tomography scan of the chest abdomen and pelvis, labs and medications reviewed Patient will be taken urgently to the operating room Plan is to remain on the mechanical ventilator He will be admitted to the intensive care unit Family is at the bedside and aware of the critical nature of his illness We will continue to follow and make further recommendations based on his clinical status I have personally seen and examined the patient, performed the documentation and the assessment and plan as written. Number of minutes spent on the visit: 20.
[2023-09-08] MEDS ORDERED: VANCOMYCIN 1,000 MG in SODIUM CHLORIDE 0.9% 250 ML IVPB SCH (17:00)
[2023-09-08] MEDS ORDERED: propofoL 100 ML IV ONE (17:16)
[2023-09-08 17:19] LABS: Glucose,Whole Blood 81 mg/dL (70-110)
[2023-09-08] MEDS ORDERED: HYDROmorphone 1 MG/ML 1 ML SYRINGE IVP PRN (17:21)
--- NOTE | 2023-09-08 17:34 | P.OP ---
Date of Procedure: 09/08/23 Procedure(s) Performed: PREOPERATIVE DIAGNOSIS: Pneumoperitoneum POSTOPERATIVE DIAGNOSIS: Pneumoperitoneum with abdominal abscess and peritonitis PROCEDURE: Exploratory laparotomy, drainage abdominal abscess with lysis of adhesions SURGEON: Toribio EBL: 25 mL ANESTHESIA: Gen. COMPLICATIONS: None OPERATIVE PROCEDURE: Patient placed on the operating table in the supine position. The patient was placed under general anesthesia. The abdomen was prepped and draped sterilely. A vertical incision was made in the midabdomen. Entrance into the abdominal cavity place using electrocautery. A large volume of air was evacuated. The patient had a large volume of purulent fluid within the abdominal cavity. The majority of the purulent fluid was present in the pelvis. The incision was lengthened inferiorly. The Annie retractor was utilized. The patient had diffuse peritonitis with multiple interloop abscesses present. Blunt dissection ensued mobilizing all of the small bowel that was adherent to itself. The small bowel was ran from the ligament of Treitz to the ileocecal valve without evidence of ischemic changes or perforation. The appendix cecum and ascending transverse and descending colon appeared normal without evidence of ischemic changes or perforation. The sigmoid colon was mobilized. There were some adhesions holding the sigmoid colon against the pelvic sidewall. There was a fibrinous peel that was removed. There was no visible perforation or ischemic changes present. There was no evidence of obstruction at the level of the rectosigmoid. The abdomen was thoroughly irrigated with saline. The stomach and duodenal sweep was inspected and appeared normal. The patient's gallbladder was slightly distended without perforation. The patient had a single firm 1.5 cm nodule at the anterior aspect of the right lobe of the liver that appeared suspicious for possible neoplastic change. This was not easily amenable to biopsy. A total of 4 L were used to irrigate the abdomen. No further purulence was seen. I placed a drain in the pelvis. This exited from the right side of the abdomen and was sutured to the skin using a 3-0 silk stitch. No bowel resection took place as I was unable to identify a site of perforation. The abdomen was then closed using 2 separate ru nning double-stranded #1 PDS sutures. Skin was reapproximated loosely using maurisio. Sterile dressing was applied. DISPOSITION: Stable to recovery room
--- NOTE | 2023-09-08 17:46 | XR ---
EXAMINATION TYPE: XR chest 1V portable DATE OF EXAM: 09/08/2023 5:41 PM CLINICAL INDICATION:Male, 68 years old with history of Tube placement; [facility] COMPARISON: Chest radiographs from TECHNIQUE: XR chest 1V portable Frontal view of the chest. FINDINGS: Lungs/Pleura: Multifocal airspace opacities. No evidence of pneumothorax or right pleural effusion. S mall left pleural effusion. Pulmonary vascularity: Unremarkable. Heart/mediastinum: Cardiomediastinal silhouette is unremarkable. Musculoskeletal: No acute osseous pathology. Destructive changes to the left rib is not appreciated. Other findings: None Lines/Tubes: Endotracheal tube with distal tip 4.1 cm above the neisha. Nasogastric tube with its distal tip and side-port projecting under the diaphragm. IMPRESSION: 1. Support tubes in appropriate position. 2. Multifocal airspace opacities remain left with small left pleural effusion. 3. No acute cardiopulmonary disease/process.
[2023-09-08 17:52] LABS: ABG Base Excess -3.7 mmol/L; ABG HCO3 26 mmol/L (21-25); ABG Oxygen Saturation 89.3 % (94-97); ABG PO2 83 mmHg (83-108); ABG TCO2 28 mmol/L (19-24); Allen Test Performed? Yes
[2023-09-08 17:57] LABS: ABG PH 7.11 (7.35-7.45)
[2023-09-08 17:58] LABS: ABG PCO2 81 mmHg (35-45)
--- NOTE | 2023-09-08 17:58 | P.PN ---
Progress Note - Text Progress Note Date: 09/08/23 Attempted to see patient on consult. However, patient was undergoing surgery for pneumoperitoneum
[2023-09-08 20:18] LABS: Appearance,Urine Cloudy (Clear); Bacteria,Urine Rare /hpf; Bilirubin,Urine Negative (Negative); Blood,Urine Moderate (Negative); Color,Urine Yellow; Glucose,Urine (UA) Negative (Negative); Hyaline Casts,Urine 17 /lpf (0-2); Ketones,Urine 1+ (Negative); Leukocyte Esterase,Urine Negative (Negative); Mucus,Urine Occasional /hpf; Nitrite,Urine Negative (Negative); PH, Urine 5.5 (5.0-8.0); Protein,Urine 1+ (Negative); RBC,Urine 18 /hpf (0-5); Specific Gravity,Urine 1.024 (1.001-1.035); Squamous Epithelial Cell,Urine 1 /hpf (0-4); WBC,Urine 4 /hpf (0-5)
[2023-09-08] MEDS: CHLORHEXIDINE GLUCONATE 15 ML CUP MUCOUS MEM SCH (20:38)
[2023-09-08 20:54] LABS: ABG Base Excess -4.9 mmol/L; ABG HCO3 23 mmol/L (21-25); ABG Oxygen Saturation 83.8 % (94-97); ABG PCO2 57 mmHg (35-45); ABG PH 7.21 (7.35-7.45); ABG PO2 63 mmHg (83-108); ABG TCO2 25 mmol/L (19-24)
[2023-09-08] MEDS ORDERED: FAMOTIDINE 20 MG TAB PO SCH (21:00)
[2023-09-08] MEDS: SODIUM CHLORIDE 0.9% 1,000 ML IV SCH (21:08)
[2023-09-09] MEDS: HEPARIN SODIUM,PORCINE 5,000 UNIT/ML 1 ML VIAL SQ SCH ×3 (00:01→17:12)
[2023-09-09] MEDS ORDERED: SODIUM CHLORIDE 0.9% 500 ML 500 ML IV ONE (01:35)
[2023-09-09] MEDS: SODIUM CHLORIDE 0.9% 1,000 ML IV SCH ×3 (02:13→20:11)
[2023-09-09] MEDS: metroNIDAZOLE-NS PMX 500 MG in SALINE 1 100ML.BAG IVPB SCH ×3 (04:02→20:11)
[2023-09-09] MEDS: PIPERACILLIN-TAZOBACTAM 3.375 GM in SODIUM CHLORIDE 0.9% 100 ML IVPB SCH ×3 (04:02→20:11)
[2023-09-09 04:59] LABS: Anisocytosis Slight; Basophils % (A) 0 %; Eosinophils % (A) 0 %; HCT 37.4 % (39.0-53.0); Lymphocytes # (A) 0.3 k/uL (1.0-4.8); Lymphocytes % (A) 2 %; MCH 31.3 pg (25.0-35.0); MCHC 31.9 g/dL (31.0-37.0); MCV 98.3 fL (80.0-100.0); Macrocytosis Slight; Mean Platelet Volume 7.9; Monocytes # (A) 0.5 k/uL (0-1.0); Monocytes % (A) 4 %; Neutrophils % (A) 93 %; Platelet Count 331 k/uL (150-450); RDW 16.2 % (11.5-15.5); WBC 11.9 k/uL (3.8-10.6)
[2023-09-09 05:07] LABS: African American GFR (CKD) 69 (>60 ml/min/1.73 sqM); Anion Gap 15 mmol/L; Blood Urea Nitrogen 25 mg/dL (9-20); Carbon Dioxide 18 mmol/L (22-30); Chloride 100 mmol/L (98-107); Glucose 90 mg/dL (74-99); Non-African American GFR(CKD) 60 (>60 ml/min/1.73 sqM); Sodium 133 mmol/L (137-145)
[2023-09-09 05:16] LABS: HGB 11.9 gm/dL (13.0-17.5)
[2023-09-09 06:02] LABS: ABG Base Excess -5.9 mmol/L; ABG HCO3 20 mmol/L (21-25); ABG PCO2 39 mmHg (35-45); ABG PH 7.33 (7.35-7.45); ABG PO2 245 mmHg (83-108); ABG TCO2 21 mmol/L (19-24)
--- NOTE | 2023-09-09 07:24 | P.CONS ---
History of Present Illness - Reason for Consult Consult date: 09/08/23 - History of Present Illness Patient is a 68-year-old male with a past medical history significant for squamous cell carcinoma of the lung diagnosed in April 2023 for the patient has received radiation therapy currently undergoing chemotherapy presenting to the ER for evaluation of abdominal pain that has been going on for 1 to 2 weeks. During the hospital patient did have a chest x-ray due to the free air under diaphragm subsequently had CT scan of abdomen pelvis with diffuse large free intraperitoneal air moderate abdominal pelvic ascites patient on presentation to the hospital was afebrile patient was tachycardic and hypertensive requiring pressor support white count 16,000 with a left shift BUN/creatinine has been mildly elevated lactic acid at 3.3. Patient started on vancomycin and Zosyn infectious disease consulted for further management of antibiotic therapy patient was seen in the preop area getting ready for the surgery the patient was lethargic not having good historian most information has been extracted from the chart and talking to the nursing staff Past Medical History Past Medical History: Cancer Additional Past Medical History / Comment(s): uses albuterol to "Loosen up his lungs"; lung cancer History of Any Multi-Drug Resistant Organisms: None Reported Past Surgical History: Orthopedic Surgery, Tonsillectomy Additional Past Surgical History / Comment(s): fx humurus repair on lft Past Anesthesia/Blood Transfusion Reactions: No Reported Reaction Past Psychological History: No Psychological Hx Reported Smoking Status: Former smoker Past Alcohol Use History: Occasional Medications and Allergies Home Medications Medication Instructions Recorded Confirmed Type Albuterol Inhaler [Ventolin Hfa 1 - 2 puff INHALATION RT-QID PRN 05/12/23 09/08/23 History Inhaler] Morphine Sulfate ER [Ms Contin] 15 mg PO BID@0600,1800 09/08/23 09/08/23 History Sennosides/Docusate Sodium [Senna 2 tab PO BID@0600,1800 09/08/23 09/08/23 History Plus 8.6-50 mg Tablet] Allergies Allergy/AdvReac Type Severity Reaction Status Date / Time codeine Allergy Rash/Hives Verified 09/08/23 12:01 Physical Exam Vitals: Vital Signs Temp Pulse Pulse Resp BP BP Pulse Ox 09/08/23 14:30 97.4 F L 91 20 101/58 94 L 09/08/23 14:00 85 15 101/70 85 L 09/08/23 13:31 91 20 101/70 92 L 09/08/23 13:00 90 18 92/63 97 09/08/23 12:00 97 22 103/62 96 09/08/23 11:51 92 22 09/08/23 11:00 87 18 99/60 96 09/08/23 10:50 96 20 99/60 96 09/08/23 10:44 98 25 H 93 L 09/08/23 09:47 96.8 F L 87 18 98/67 86 L Intake and Output 09/08/23 09/08/23 09/08/23 06:59 14:59 22:59 Intake Total 100 Balance 100 Intake: IV 100 Other: Weight 51.256 kg Results CBC & Chem 7: 09/09/23 04:20 09/09/23 04:20 Labs: Abnormal Lab Results - Last 24 Hours (Table) 09/08/23 09/08/23 09/08/23 Range/Units 10:25 10:25 10:25 WBC 16.0 H (3.8-10.6) k/uL RDW 16.3 H (11.5-15.5) % Plt Count 541 H (150-450) k/uL Neutrophils # 14.8 H (1.3-7.7) k/uL Lymphocytes # 0.5 L (1.0-4.8) k/uL Sodium 127 L (137-145) mmol/L Potassium 5.4 H (3.5-5.1) mmol/L Chloride 83 L (98-107) mmol/L BUN 35 H (9-20) mg/dL Creatinine 1.43 H (0.66-1.25) mg/dL Plasma Lactic Acid David 3.3 H* (0.7-2.0) mmol/L Magnesium 2.5 H (1.6-2.3) mg/dL Total Bilirubin 1.5 H (0.2-1.3) mg/dL Alkaline Phosphatase 146 H (38-126) U/L Albumin 3.0 L (3.5-5.0) g/dL Assessment and Plan Plan: 1patient to the hospital with sepsis in this with tachycardia hypotension leukocytosis presented with abdominal pain and did have a large free intraperitoneal air concerning for perforation and needed to cover for the ent miguel gram Negative both aerobes and anaerobes 2-patient did have renal insufficiency and high risk of nephrotoxicity 3-we will keep the patient on Zosyn however discontinue vancomycin due to the risk of nephrotoxicity 4-discussed with surgeon to obtain intraoperative cultures that will guide antibiotic We will follow on clinical condition and cultures to further adjust medication if needed Thank you for this consultation we will follow the patient along with you Dictation was produced using [employer] dictation software. please excuse any grammatical, word or spelling errors. Time with Patient: Greater than 30
--- NOTE | 2023-09-09 08:08 | XR ---
EXAMINATION TYPE: XR chest 1V portable DATE OF EXAM: 09/09/2023 5:51 AM CLINICAL INDICATION:Male, 68 years old with history of Tube placement; [facility] COMPARISON: Chest radiograph from one day prior. TECHNIQUE: XR chest 1V portable Frontal view of the chest. FINDINGS: Lungs/Pleura: Multifocal airspace opacities. No evidence of pneumothorax or pleural effusion. Pulmonary vascularity: Unremarkable. Heart/mediastinum: Cardiomediastinal silhouette is unremarkable. Musculoskeletal: No acute osseous pathology. Other findings: None Lines/Tubes: Endotracheal tube with distal tip 4.1 cm above the neisha. Nasogastric tube with its distal tip and side-port projecting under the diaphragm. Right internal jugular central venous catheter with distal tip at the cavoatrial junction. IMPRESSION: 1. Similar multifocal airspace opacities. 2. Stable support lines and tubes.
--- NOTE | 2023-09-09 08:24 | P.PN ---
Subjective Progress Note Date: 09/09/23 Principal diagnosis: Pneumoperitoneum Patient remains on the ventilator. Patient has had some marginal blood pressure overnight. Making adequate urine. Labs from this morning are noted. Acidosis improved. Patient was given fluid boluses overnight. HILARIO drain output was 600 m L serosanguineous overnight. Becoming more serous. Family changed CODE STATUS overnight to no code. Objective - Vital Signs Vital signs: Vital Signs Temp 97.5 F L 09/09/23 04:00 Pulse 78 09/09/23 07:00 Resp 14 09/09/23 07:00 BP 89/55 09/09/23 07:00 Pulse Ox 98 09/09/23 07:00 FiO2 45 09/09/23 06:56 Intake & Output 09/08/23 09/09/23 09/09/23 18:59 06:59 18:59 Intake Total 1250 3873.481 128 Output Total 375 1390 140 Balance 875 2483.481 -12 Weight 51.256 kg 56.3 kg Intake: IV 1250 3808 128 Piperacillin-Tazobactam 3 200 .375 gm In Sodium Chloride 0.9% 100 ml @ 25 mls/hr IVPB Q8H [facility] Rx#: [id number] Pressure Bag 33 3 Sodium Chloride 0.9% 1, 1375 125 000 ml @ 125 mls/hr IV . Q8H [facility] Rx#:[id number] Sodium Chloride 0.9% 1, 1000 000 ml @ 999 mls/hr IV . Q1H1M ONE Rx#:[id number] Sodium Chloride 0.9% 500 1000 ml 500 ml @ 999 mls/hr IV .Q31M ONE Rx#:[id number] metroNIDAZOLE-NS PMX 500 200 mg In Saline 1 100ml.bag @ 100 mls/hr IVPB Q8H [facility] Rx#:[id number] Intake, IV Titration 65.481 Amount propofoL 1,000 mg In 65.481 Empty Bag 1 bag @ 15 MCG/ KG/MIN 4.613 mls/hr IV . [id number] [facility] Rx#:[id number] Output: Drainage 855 100 Abdomen 855 100 Urine 300 535 40 Estimated Blood Loss 75 Other: Voiding Method Indwelling Catheter Indwelling Catheter ABP, PAP, CO, CI - Last Documented Arterial Blood Pressure 91/42 - Exam Abdomen: Soft, nondistended, dressing clean and dry, HILARIO drain serosanguineous - Labs CBC & Chem 7: 09/09/23 04:20 09/09/23 04:20 Labs: Abnormal Lab Results - Last 24 Hours (Table) 09/08/23 09/08/23 09/08/23 Range/Units 10:25 10:25 10:25 WBC 16.0 H (3.8-10.6) k/uL RBC (4.30-5.90) m/uL Hgb (13.0-17.5) gm/dL Hct (39.0-53.0) % RDW 16.3 H (11.5-15.5) % Plt Count 541 H (150-450) k/uL Neutrophils # 14.8 H (1.3-7.7) k/uL Lymphocytes # 0.5 L (1.0-4.8) k/uL ABG pH (7.35-7.45) ABG pCO2 (35-45) mmHg ABG pO2 (83-108) mmHg ABG HCO3 (21-25) mmol/L ABG Total CO2 (19-24) mmol/L ABG O2 Saturation (94-97) % Sodium 127 L (137-145) mmol/L Potassium 5.4 H (3.5-5.1) mmol/L Chloride 83 L (98-107) mmol/L Carbon Dioxide (22-30) mmol/L BUN 35 H (9-20) mg/dL Creatinine 1.43 H (0.66-1.25) mg/dL Plasma Lactic Acid David 3.3 H* (0.7-2.0) mmol/L Calcium (8.4-10.2) mg/dL Magnesium 2.5 H (1.6-2.3) mg/dL Total Bilirubin 1.5 H (0.2-1.3) mg/dL Alkaline Phosphatase 146 H (38-126) U/L Albumin 3.0 L (3.5-5.0) g/dL Urine Protein (Negative) Urine Ketones (Negative) Urine Blood (Negative) Urine RBC (0-5) /hpf Urine Bacteria (None) /hpf Hyaline Casts (0-2) /lpf Urine Mucus (None) /hpf 12/15/23 12/15/23 12/15/23 Range/Units 17:46 20:01 20:47 WBC (3.8-10.6) k/uL RBC (4.30-5.90) m/uL Hgb (13.0-17.5) gm/dL Hct (39.0-53.0) % RDW (11.5-15.5) % Plt Count (150-450) k/uL Neutrophils # (1.3-7.7) k/uL Lymphocytes # (1.0-4.8) k/uL ABG pH 7.11 L* 7.21 L (7.35-7.45) ABG pCO2 81 H* 57 H (35-45) mmHg ABG pO2 63 L (83-108) mmHg ABG HCO3 26 H (21-25) mmol/L ABG Total CO2 28 H 25 H (19-24) mmol/L ABG O2 Saturation 89.3 L 83.8 L (94-97) % Sodium (137-145) mmol/L Potassium (3.5-5.1) mmol/L Chloride (98-107) mmol/L Carbon Dioxide (22-30) mmol/L BUN (9-20) mg/dL Creatinine (0.66-1.25) mg/dL Plasma Lactic Acid David (0.7-2.0) mmol/L Calcium (8.4-10.2) mg/dL Magnesium (1.6-2.3) mg/dL Total Bilirubin (0.2-1.3) mg/dL Alkaline Phosphatase (38-126) U/L Albumin (3.5-5.0) g/dL Urine Protein 1+ H (Negative) Urine Ketones 1+ H (Negative) Urine Blood Moderate H (Negative) Urine RBC 18 H (0-5) /hpf Urine Bacteria Rare H (None) /hpf Hyaline Casts 17 H (0-2) /lpf Urine Mucus Occasional H (None) /hpf 09/09/23 09/09/23 09/09/23 Range/Units 04:15 04:20 04:20 WBC 11.9 H (3.8-10.6) k/uL RBC 3.80 L (4.30-5.90) m/uL Hgb 11.9 L D (13.0-17.5) gm/dL Hct 37.4 L (39.0-53.0) % RDW 16.2 H (11.5-15.5) % Plt Count (150-450) k/uL Neutrophils # 11.0 H (1.3-7.7) k/uL Lymphocytes # 0.3 L (1.0-4.8) k/uL ABG pH 7.33 L (7.35-7.45) ABG pCO2 (35-45) mmHg ABG pO2 245 H (83-108) mmHg ABG HCO3 20 L (21-25) mmol/L ABG Total CO2 (19-24) mmol/L ABG O2 Saturation 99.0 H (94-97) % Sodium 133 L (137-145) mmol/L Potassium (3.5-5.1) mmol/L Chloride (98-107) mmol/L Carbon Dioxide 18 L (22-30) mmol/L BUN 25 H (9-20) mg/dL Creatinine (0.66-1.25) mg/dL Plasma Lactic Acid David (0.7-2.0) mmol/L Calcium 7.0 L (8.4-10.2) mg/dL Magnesium (1.6-2.3) mg/dL Total Bilirubin (0.2-1.3) mg/dL Alkaline Phosphatase (38-126) U/L Albumin (3.5-5.0) g/dL Urine Protein (Negative) Urine Ketones (Negative) Urine Blood (Negative) Urine RBC (0-5) /hpf Urine Bacteria (None) /hpf Hyaline Casts (0-2) /lpf Urine Mucus (None) /hpf Assessment and Plan (1) Pneumoperitoneum of unknown etiology Narrative/Plan: Patient remains on the ventilator. Blood pressure is been a little bit on the low side. We will be starting Levophed this morning. Monitor urine output closely. Discussion regarding weaning trials per pulmonary. Continue broad- spectrum antibiotics. Follow cultures. Keep nothing by mouth and hold any medications through NG tube for now. Current Visit: Yes Status: Acute Code(s): K66.8 - OTHER SPECIFIED DISORDERS OF PERITONEUM SNOMED Code(s): 60968136
[2023-09-09] MEDS ORDERED: SODIUM CHLORIDE 0.9% 1,000 ML IV ONE (08:29)
[2023-09-09] MEDS: CHLORHEXIDINE GLUCONATE 15 ML CUP MUCOUS MEM SCH ×2 (09:58→20:12)
[2023-09-09] MEDS: PANTOPRAZOLE 40 MG/10 ML VIAL IVP SCH ×2 (09:58→20:12)
--- NOTE | 2023-09-09 11:46 | P.PN ---
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 He received 1 week of radiation therapy and is currently receiv ing chemotherapy. He presented to the emergency room earlier today with complaints of abdominal pain for the past 1-2 weeks. Chest x-ray revealed free air under the diaphragm. Computed tomography scan of the chest abdomen pelvis revealed moderate to large free intraperitoneal air. Exact source is unclear. There are numerous small foci of air within the pelvis which could represent small bowel or sigmoid colonic pneumatosis and possible site of hollow viscus perforation. There is reactive mild to moderate abdominopelvic ascites. There is bibasilar consolidation left greater than right. There is an internal area of 6.3 cm fluid. Possibly related to known lung cancer. Consider necrotic tumor versus pulmonary abscess.. Evidence of destruction of the overlying left posterior ninth and 10th ribs. Moderate to severe COPD. Count 16.0. Hemoglobin 15.9. Platelets 541. Sodium 127. Potassium 5.4. Bicarb 23. BUN 35. Creatinine 1.43. Lactic acid 3.3. ProBNP 4600. Viral screen negative. He will be taken urgently to the operating room. He most likely will require prolonged mechanical ventilation postoperatively and we're consulted for the same. He is seen in the preoperative area. He is quite cachectic. BMI of 16.2 kg/m. He is awake and alert. He does have abdominal discomfort. He denies any worsening shortness of breath, cough or congestion. He is maintaining O2 saturations in the 90s on 2 L/m per nasal cannula. At one point he was 85% saturations on room air. He has an albuterol HFA that he uses at home. He is not oxygen dependent. Family is at the bedside. Patient was reevaluated today on 09/09/2023, patient underwent exploratory laparotomy yesterday he was found to have pneumoperitoneum with abdominal abscess and peritonitis, could not find any specific site for perforation, patient had drainage of abdominal abscess with lysis of adhesions. Postoperatively patient was sent to the ICU on mechanical ventilation. And I was notified about this patient last night and manage his ventilator settings overnight and hemodynamic status is marginal. Patient is now on assist control rate of 20 to tell volume 400 FiO2 45% and PEEP of 5. ABG on 65% FiO2 showed a pO2 of 245 pCO2 39 pH of 7.39. Blood pressure is soft, hence I recommended more fluid boluses to be given, and use norepinephrine if necessary. Patient received at least 2 L of fluid boluses yesterday. Urine output is marginal at 35 mL per hour. He is on Flagyl and Zosyn. Patient is also on propofol at 25 mcg/kg/m IV fluid is at 1 25 mL per hour in the form of 0.9 normal saline. Chest x-ray showed multifocal airspace opacities especially in the left lung, and these are chronic related to his recent lung cancer. Doubt acute infectious process, nonetheless the patient is covered with antibiotics for his abdominal sepsis. Sitting the patient is yet to fully hemodynamically stable, I would not address weaning and extubation today. But I will cut down his propofol and at least try to assess his mental status. And this will be done on a daily basis. CODE STATUS was changed yesterday after surgery from full code to DO NOT RESUSCITATE CODE STATUS. ABG today as noted above to 45/39/7.33 WBC count is 11.9 hemoglobin 11.9, sodium 133 potassium 4.0 BUN is 25 creatinine 1.23 Objective - Vital Signs Vital signs: Vital Signs Temp 97.6 F 09/09/23 08:00 Pulse 79 09/09/23 11:00 Resp 20 09/09/23 11:00 BP 89/47 09/09/23 11:00 Pulse Ox 99 09/09/23 11:00 FiO2 45 09/09/23 08:54 Intake & Output 09/08/23 09/09/23 09/09/23 18:59 06:59 18:59 Intake Total 1250 3873.481 1672.674 Output Total 375 1390 405 Balance 875 2483.481 1267.674 Weight 51.256 kg 56.3 kg Intake: IV 1250 3808 1640 Piperacillin-Tazobactam 3 200 .375 gm In Sodium Chloride 0.9% 100 ml @ 25 mls/hr IVPB Q8H [facility] Rx#: [id number] Pressure Bag 33 15 Sodium Chloride 0.9% 1, 1375 625 000 ml @ 125 mls/hr IV . Q8H [facility] Rx#:[id number] Sodium Chloride 0.9% 1, 1000 1000 000 ml @ 999 mls/hr IV . Q1H1M ONE Rx#:[id number] Sodium Chloride 0.9% 500 1000 ml 500 ml @ 999 mls/hr IV .Q31M ONE Rx#:[id number] metroNIDAZOLE-NS PMX 500 200 mg In Saline 1 100ml.bag @ 100 mls/hr IVPB Q8H [facility] Rx#:[id number] Intake, IV Titration 65.481 32.674 Amount propofoL 1,000 mg In 65.481 32.674 Empty Bag 1 bag @ 15 MCG/ KG/MIN 4.613 mls/hr IV . [id number] [facility] Rx#:[id number] Output: Drainage 855 200 Abdomen 855 200 Urine 300 535 205 Estimated Blood Loss 75 Other: Voiding Method Indwelling Catheter Indwelling Catheter ABP, PAP, CO, CI - Last Documented Arterial Blood Pressure 90/43 - Exam Physical Exam: Revealed a 68-year-old white male cachectic, frail looking, chronically ill-looking on mechanical ventilation. HEENT:[Neck is supple.] [No neck masses.] [No thyromegaly.] [No JVD.] Endotracheal tube and orogastric tube are intact Chest: [Rhonchi Noted Bilaterally Symmetrical Chest Expansion. Cardiac Exam: [Normal S1 and S2, no S3 gallop, no murmur.] Abdomen: [Postsurgical, soft, nontender, HILARIO drain output was 600 mL of serosanguineous fluid overnight Extremities: [No clubbing, no edema, no cyanosis.] Neurological Exam: Difficult to assess, patient is arousable, but tends to fall asleep easily, maintain on propofol for now Psychiatric: Could not assess. Skin: No rashes. - Labs CBC & Chem 7: 09/09/23 04:20 09/09/23 04:20 Labs: Abnormal Lab Results - Last 24 Hours (Table) 09/08/23 09/08/23 09/08/23 Range/Units 17:46 20:01 20:47 WBC (3.8-10.6) k/uL RBC (4.30-5.90) m/uL Hgb (13.0-17.5) gm/dL Hct (39.0-53.0) % RDW (11.5-15.5) % Neutrophils # (1.3-7.7) k/uL Lymphocytes # (1.0-4.8) k/uL ABG pH 7.11 L* 7.21 L (7.35-7.45) ABG pCO2 81 H* 57 H (35-45) mmHg ABG pO2 63 L (83-108) mmHg ABG HCO3 26 H (21-25) mmol/L ABG Total CO2 28 H 25 H (19-24) mmol/L ABG O2 Saturation 89.3 L 83.8 L (94-97) % Sodium (137-145) mmol/L Carbon Dioxide (22-30) mmol/L BUN (9-20) mg/dL Calcium (8.4-10.2) mg/dL Urine Protein 1+ H (Negative) Urine Ketones 1+ H (Negative) Urine Blood Moderate H (Negative) Urine RBC 18 H (0-5) /hpf Urine Bacteria Rare H (None) /hpf Hyaline Casts 17 H (0-2) /lpf Urine Mucus Occasional H (None) /hpf 09/09/23 09/09/23 09/09/23 Range/Units 04:15 04:20 04:20 WBC 11.9 H (3.8-10.6) k/uL RBC 3.80 L (4.30-5.90) m/uL Hgb 11.9 L D (13.0-17.5) gm/dL Hct 37.4 L (39.0-53.0) % RDW 16.2 H (11.5-15.5) % Neutrophils # 11.0 H (1.3-7.7) k/uL Lymphocytes # 0.3 L (1.0-4.8) k/uL ABG pH 7.33 L (7.35-7.45) ABG pCO2 (35-45) mmHg ABG pO2 245 H (83-108) mmHg ABG HCO3 20 L (21-25) mmol/L ABG Total CO2 (19-24) mmol/L ABG O2 Saturation 99.0 H (94-97) % Sodium 133 L (137-145) mmol/L Carbon Dioxide 18 L (22-30) mmol/L BUN 25 H (9-20) mg/dL Calcium 7.0 L (8.4-10.2) mg/dL Urine Protein (Negative) Urine Ketones (Negative) Urine Blood (Negative) Urine RBC (0-5) /hpf Urine Bacteria (None) /hpf Hyaline Casts (0-2) /lpf Urine Mucus (None) /hpf Assessment and Plan Assessment: Impression: Status post exploratory laparotomy, drainage of abdominal abscess and lysis of adhesions most likely secondary to recent colonic perforation., Could not be seen on exploratory laparotomy. Abdominal pain secondary to moderate to large free intraperitoneal air. 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 Computed tomography scan of the chest reveals bibasilar consolidation, left greater than right. Correlate for infectious or aspiration pneumonitis. On the left there is an internal area of 6.3 cm fluid. Consider necrotic tumor possibly with superinfection versus pulmonary abscess. There is destruction of the overlying left posterior ninth and 10th ribs Moderate to severe chronic obstructive pulmonary disease Former smoker Severe cachexia with a BMI of 16.2 kg per metered squared Plan: Continue ventilatory support Consider pressors for hemodynamic support if no improvement with fluid boluses Continue antibiotics as per infectious disease on the case patient is on Zosyn and Flagyl GI and DVT prophylaxis Consider starting the patient on TPN for nutritional support Not ready for weaning at this point, will consider this in the next 24 hours. 2 new propofol and Dilaudid Continue heparin subcu Continue updrafts/Los Prognosis remains extremely poor and guarded Patient is critically ill. Critical care time is over 30 minutes T Time with Patient: Greater than 30
[2023-09-09] MEDS: NOREPINEPHRINE 8 MG in SODIUM CHLORIDE 0.9% 250 ML IV SCH (13:00)
--- NOTE | 2023-09-09 16:28 | P.CRDCN ---
History of Present Illness History of present illness: HISTORY OF PRESENTING ILLNESS Patient is pleasant 68-year-old male with history of squamous cell carcinoma the lung since April 2023 receiving radiation and chemotherapy, COPD, prior tobacco abuse, cachexia who presented secondary abdominal pain. CT abdomen and pelvis showed moderate to large free intraperitoneal air, mild to moderate abdominal ascites, by basilar consolidation left greater than right consistent with possible infectious versus aspiration pneumonitis. Cardiology was consult for congestive heart failure. Blood work shows white blood cell count 16.0, platelets 541, hemoglobin 15.9, sodium 127, potassium 5.4, creatinine 1.4, lactic acid 3.3, troponin 0.017, proBNP 4600. Patient currently intubated and sedated and history is supplied by family. Patient has not had any cardiac history, no prior history of congestive heart failure CAD or valvular disease. He has not been having any recent complaints of chest pain. They do not believe he has had any recent cardiac workup. They have however been noticing some mild increase in lower extremity edema. Patient was taken for exploratory laparotomy with lysis of adhesions and washout however no source of active perforation. Suspicion of possible abscess with healed perforation. Has been receiving IV fluids and has had 1-2+ lower extremity edema however lower extremities wrapped with Rg wrap and currently only 1+ lower extremity edema at the thigh. EKG shows sinus rhythm, normal axis, nonspecific minimal T-wave inversions. REVIEW OF SYSTEMS At the time of my exam: Unable to obtain secondary to sedation/ intubation PHYSICAL EXAMINATION Vital signs reviewed. CONSTITUTIONAL: No apparent distress, cachectic, ill appearing, intubated HEENT: Head is normocephalic. Pupils are equal, round. Sclerae anicteric. Mucous membranes of the mouth are moist. No JVD. No carotid bruit. CHEST EXAMINATION: Lungs decreased breath sounds bilaterally HEART EXAMINATION: Regular rate and rhythm. S1, S2 heard. No murmurs, gallops or rub. ABDOMEN: Soft, nontender. EXTREMITIES: 1+ lower extremity edema and no calf tenderness. NEUROLOGIC EXAMINATION: Patient is sedated. ASSESSMENT 1. Chronic heart failure, unclear diastolic versus systolic 2. Pneumoperitoneum, status post exploratory laparotomy with no active source of perforation. Possible perforation with healed abscess 3. Septic shock on low-dose vasopressors 4. Squamous cell cancer receiving radiation and chemotherapy 5. Acute on chronic respiratory failure, currently ventilator dependent 6. Mild acute kidney injury PLAN Patient's main presentation related to no peritoneum and sepsis. Elevated proBNP of unclear significance. Likely some component of chronic heart failure however currently septic and has received fluid bolus for sepsis. Check CVP to evaluate filling pressures/ right atrial pressures. Does have some lower extremity edema but likely third spacing from sepsis. Additionally cachectic with likely some component of protein calorie malnutrition. Check 2-D echo and continue with gentle IV hydration. Eventually once sepsis improves may need diuretics. Past Medical History Past Medical History: Cancer Additional Past Medical History / Comment(s): uses albuterol to "Loosen up his lungs"; lung cancer History of Any Multi-Drug Resistant Organisms: None Reported Past Surgical History: Orthopedic Surgery, Tonsillectomy Additional Past Surgical History / Comment(s): fx humurus repair on lft Past Anesthesia/Blood Transfusion Reactions: No Reported Reaction Past Psychological History: No Psychological Hx Reported Smoking Status: Former smoker Past Alcohol Use History: Occasional Medications and Allergies Home Medications Medication Instructions Recorded Confirmed Type Albuterol Inhaler [Ventolin Hfa 1 - 2 puff INHALATION RT-QID PRN 05/12/23 09/08/23 History Inhaler] Morphine Sulfate ER [Ms Contin] 15 mg PO BID@0600,1800 09/08/23 09/08/23 History Sennosides/Docusate Sodium [Senna 2 tab PO BID@0600,1800 09/08/23 09/08/23 History Plus 8.6-50 mg Tablet] Allergies Allergy/AdvReac Type Severity Reaction Status Date / Time codeine Allergy Rash/Hives Verified 09/08/23 12:01 Physical Exam Vitals: Vital Signs Temp Pulse Resp BP Pulse Ox FiO2 09/09/23 16:00 97.2 F L 88 11 L 96/57 97 45 09/09/23 15:57 45 09/09/23 15:00 76 16 95/57 100 09/09/23 14:00 79 20 89/52 100 09/09/23 13:00 80 16 89/52 92 L 09/09/23 12:20 45 09/09/23 12:00 97 F L 84 20 79/51 97 45 09/09/23 11:00 79 20 89/47 99 09/09/23 10:00 75 15 93/54 98 09/09/23 09:00 77 17 90/50 100 12/16/23 08:54 45 09/09/23 08:00 97.6 F 77 19 82/53 93 L 45 09/09/23 07:00 78 14 89/55 98 09/09/23 06:56 45 09/09/23 06:00 74 22 88/55 97 09/09/23 05:00 89 19 89/55 100 09/09/23 04:17 65 09/09/23 04:00 97.5 F L 82 22 88/57 95 65 09/09/23 03:00 81 22 86/57 98 09/09/23 02:00 86 24 90/57 100 09/09/23 01:30 97 22 86/61 99 09/09/23 01:00 87 23 88/56 100 09/09/23 00:35 65 09/09/23 00:30 88 21 85/56 93 L 09/09/23 00:17 86 22 85/56 94 L 09/09/23 00:00 97.6 F 90 22 81/58 95 65 09/08/23 23:30 92 22 92/56 95 09/08/23 23:00 100 22 87/57 97 09/08/23 22:30 95 22 84/56 96 09/08/23 22:00 96 20 86/61 91 L 09/08/23 21:30 94 28 H 85/56 95 09/08/23 21:07 65 09/08/23 21:00 98 23 100/59 92 L 09/08/23 20:58 60 09/08/23 20:30 99 33 H 110/63 92 L 09/08/23 20:00 102 H 19 107/64 91 L 60 09/08/23 19:30 103 H 24 108/68 91 L 09/08/23 19:00 110 H 10 L 100/64 91 L 60 09/08/23 18:34 50 09/08/23 18:30 112 H 16 102/65 91 L 60 09/08/23 18:19 60 09/08/23 18:00 110 H 14 122/77 90 L 60 09/08/23 17:59 50 09/08/23 17:30 97.9 F 105 H 14 111/67 94 L 60 09/08/23 17:29 60 Intake and Output 09/09/23 09/09/23 09/09/23 06:59 14:59 22:59 Intake Total 2280.639 2261.028 17.111 Output Total 850 595 50 Balance 7265.108 8419.028 -32.889 Intake: IV 2224 2221 6 Piperacillin-Tazobactam 3 100 100 .375 gm In Sodium Chloride 0.9% 100 ml @ 25 mls/hr IVPB Q8H REPLACED BY [facility] Rx#: [id number] Pressure Bag 24 21 6 Sodium Chloride 0.9% 1, 1000 1000 000 ml @ 125 mls/hr IV . Q8H REPLACED BY [facility] Rx#:[id number] Sodium Chloride 0.9% 1, 1000 000 ml @ 999 mls/hr IV . Q1H1M [facility] Rx#:[id number] Sodium Chloride 0.9% 500 1000 ml 500 ml @ 999 mls/hr IV .Q31M [facility] Rx#:[id number] metroNIDAZOLE-NS PMX 500 100 100 mg In Saline 1 100ml.bag @ 100 mls/hr IVPB Q8H REPLACED BY [facility] Rx#:[id number] Intake, IV Titration 56.639 40.028 11.111 Amount Norepinephrine 8 mg In 7.354 11.111 Sodium Chloride 0.9% 250 ml @ 0.03 MCG/KG/MIN 3. 268 mls/hr IV .Q24H REPLACED BY [facility] Rx#:[id number] propofoL 1,000 mg In 56.639 32.674 Empty Bag 1 bag @ 15 MCG/ KG/MIN 4.613 mls/hr IV . [id number] REPLACED BY [facility] Rx#:[id number] Output: Drainage 475 200 Abdomen 475 200 Urine 375 395 50 Other: Voiding Method Indwelling Catheter Indwelling Catheter Weight 56.3 kg 56.3 kg ABP, PAP, CO, CI - Last 8 Hours Arterial Blood Pressure 97/41 Arterial Blood Pressure 104/42 Arterial Blood Pressure 100/40 Arterial Blood Pressure 98/42 Arterial Blood Pressure 97/43 Arterial Blood Pressure 90/43 Arterial Blood Pressure 96/44 Arterial Blood Pressure 90/42 Results 09/09/23 04:20 09/09/23 04:20 CBC 09/09/23 Range/Units 04:20 WBC 11.9 H (3.8-10.6) k/uL RBC 3.80 L (4.30-5.90) m/uL Hgb 11.9 L D (13.0-17.5) gm/dL Hct 37.4 L (39.0-53.0) % Plt Count 331 (150-450) k/uL Comprehensive Metabolic Panel 09/09/23 Range/Units 04:20 Sodium 133 L (137-145) mmol/L Potassium 4.0 (3.5-5.1) mmol/L Chloride 100 (98-107) mmol/L Carbon Dioxide 18 L (22-30) mmol/L BUN 25 H (9-20) mg/dL Creatinine 1.23 (0.66-1.25) mg/dL Glucose 90 (74-99) mg/dL Calcium 7.0 L (8.4-10.2) mg/dL Current Medications Generic Name Dose Route Start Last Admin Trade Name Freq PRN Reason Stop Dose Admin Albuterol Sulfate 2 mg 09/08/23 13:35 Albuterol Nebulized 2.5 Mg/3 Ml INHALATION RT-QID PRN Shortness Of Breath Chlorhexidine Gluconate 15 ml 09/08/23 21:00 09/09/23 09:58 Chlorhexidine Gluconate 15 Ml Cup MUCOUS MEM 15 ml BID [facility] Administration Heparin Sodium (Porcine) 5,000 unit 09/09/23 00:00 09/09/23 09:59 Heparin Sodium,Porcine 5,000 Unit/Ml 1 Ml Vial SQ 5,000 unit Q8HR [facility] Administration Hydromorphone HCl 1 mg 09/08/23 17:21 Hydromorphone 1 Mg/Ml 1 Ml Syringe IVP Q4HR PRN Severe Pain (Scale 7 to 10) Hydromorphone HCl 0.5 mg 09/08/23 17:21 Hydromorphone 0.5 Mg/0.5 Ml Syringe IVP Q3HR PRN Moderate Pain (Scale 4 to 6) Piperacillin Sod/Tazobactam 100 mls @ 25 mls/hr 09/08/23 12:00 09/09/23 11:56 Sod 3.375 gm/ Sodium Chloride IVPB 25 mls/hr Q8H [facility] Administration Protocol Metronidazole 500 mg/ IV 100 mls @ 100 mls/hr 09/08/23 12:00 09/09/23 11:56 Solution IVPB 100 mls/hr Q8H [facility] Administration Protocol Propofol 1,000 mg/ IV Solution 100 mls @ 4.613 mls/hr 09/08/23 17:30 09/09/23 08:45 IV 20 mcg/kg/min .[id number] [facility] 6.151 mls/hr Titration Protocol 15 MCG/KG/MIN Sodium Chloride 1,000 mls @ 125 mls/hr 09/08/23 18:00 09/09/23 02:13 Saline 0.9% IV 125 mls/hr .Q8H [facility] Administration Norepinephrine Bitartrate 8 mg 258 mls @ 3.268 mls/hr 09/09/23 08:40 09/09/23 16:12 / Sodium Chloride IV 0.07 mcg/kg/min .Q24H [facility] 7.626 mls/hr Titration Protocol 0.03 MCG/KG/MIN Naloxone HCl 0.2 mg 09/08/23 13:32 Naloxone 0.4 Mg/Ml 1 Ml Vial IV Q2M PRN Opioid Reversal Pantoprazole Sodium 40 mg 09/09/23 09:00 09/09/23 09:58 Pantoprazole 40 Mg/10 Ml Vial IVP 40 mg BID [facility] Administration Intake and Output 09/09/23 09/09/23 09/09/23 06:59 14:59 22:59 Intake Total 2280.639 2261.028 17.111 Output Total 850 595 50 Balance 2619.763 2472.028 -32.889 Intake: IV 2224 2221 6 Piperacillin-Tazobactam 3 100 100 .375 gm In Sodium Chloride 0.9% 100 ml @ 25 mls/hr IVPB Q8H REPLACED BY [facility] Rx#: [id number] Pressure Bag 24 21 6 Sodium Chloride 0.9% 1, 1000 1000 000 ml @ 125 mls/hr IV . Q8H [facility] Rx#:[id number] Sodium Chloride 0.9% 1, 1000 000 ml @ 999 mls/hr IV . Q1H1M [facility] Rx#:[id number] Sodium Chloride 0.9% 500 1000 ml 500 ml @ 999 mls/hr IV .Q31M [facility] Rx#:[id number] metroNIDAZOLE-NS PMX 500 100 100 mg In Saline 1 100ml.bag @ 100 mls/hr IVPB Q8H REPLACED BY [facility] Rx#:[id number] Intake, IV Titration 56.639 40.028 11.111 Amount Norepinephrine 8 mg In 7.354 11.111 Sodium Chloride 0.9% 250 ml @ 0.03 MCG/KG/MIN 3. 268 mls/hr IV .Q24H [facility] Rx#:[id number] propofoL 1,000 mg In 56.639 32.674 Empty Bag 1 bag @ 15 MCG/ KG/MIN 4.613 mls/hr IV . [id number] REPLACED BY [facility] Rx#:[id number] Output: Drainage 475 200 Abdomen 475 200 Urine 375 395 50 Other: Voiding Method Indwelling Catheter Indwelling Catheter Weight 56.3 kg 56.3 kg Patient Weight 09/10/23 06:59 Weight 56.3 kg 09/09/23 04:20 09/09/23 04:20
[2023-09-09] MEDS: HYDROmorphone 0.5 MG/0.5 ML SYRINGE IVP PRN ×2 (17:58→21:21)
--- NOTE | 2023-09-09 18:55 | P.CONS ---
History of Present Illness - Reason for Consult Consult date: 09/09/23 Lung cancer Requesting physician: Leeroy Rooney - Chief Complaint weakness - History of Present Illness Mr. Todd is a very pleasant 68 yo male with history of recently found lung cancer, initially diagnosed in 04/2023, undergoing chemotherapy with RT which started 1 week ago, who is here for weakness and abdominal pain. Work up in the ER revealed leukocytosis, WBC 16, thrombocytosis, plt 544, hyponatremia with Na 127, and CXR with free air under the diaphragm. CT CAP showed ascites, hemoperitioneum, and free air concerning for perforated viscera. He was seen by surgery and taken to the OR on 09/08/23, when he presented to the hospital, intraop findings consistent with abdominal abscess that was drained, and adhesions that were lysed. Evaluated by ID and pulm as well. Pt currently intubated and sedated. Past Medical History Past Medical History: Cancer Additional Past Medical History / Comment(s): uses albuterol to "Loosen up his lungs"; lung cancer History of Any Multi-Drug Resistant Organisms: None Reported Past Surgical History: Orthopedic Surgery, Tonsillectomy Additional Past Surgical History / Comment(s): fx humurus repair on lft Past Anesthesia/Blood Transfusion Reactions: No Reported Reaction Past Psychological History: No Psychological Hx Reported Smoking Status: Former smoker Past Alcohol Use History: Occasional Medications and Allergies Home Medications Medication Instructions Recorded Confirmed Type Albuterol Inhaler [Ventolin Hfa 1 - 2 puff INHALATION RT-QID PRN 05/12/23 09/08/23 History Inhaler] Morphine Sulfate ER [Ms Contin] 15 mg PO BID@0600,1800 09/08/23 09/08/23 History Sennosides/Docusate Sodium [Senna 2 tab PO BID@0600,1800 09/08/23 09/08/23 History Plus 8.6-50 mg Tablet] Allergies Allergy/AdvReac Type Severity Reaction Status Date / Time codeine Allergy Rash/Hives Verified 09/08/23 12:01 Physical Exam Vitals: Vital Signs Temp Pulse Pulse Resp BP BP Pulse Ox 09/09/23 08:54 09/09/23 07:00 78 14 89/55 98 09/09/23 06:56 09/09/23 06:00 74 22 88/55 97 09/09/23 05:00 89 19 89/55 100 09/09/23 04:17 09/09/23 04:00 97.5 F L 82 22 88/57 95 09/09/23 03:00 81 22 86/57 98 09/09/23 02:00 86 24 90/57 100 09/09/23 01:30 97 22 86/61 99 09/09/23 01:00 87 23 88/56 100 09/09/23 00:35 09/09/23 00:30 88 21 85/56 93 L 09/09/23 00:17 86 22 85/56 94 L 09/09/23 00:00 97.6 F 90 22 81/58 95 09/08/23 23:30 92 22 92/56 95 09/08/23 23:00 100 22 87/57 97 09/08/23 22:30 95 22 84/56 96 09/08/23 22:00 96 20 86/61 91 L 09/08/23 21:30 94 28 H 85/56 95 09/08/23 21:07 09/08/23 21:00 98 23 100/59 92 L 09/08/23 20:58 09/08/23 20:30 99 33 H 110/63 92 L 09/08/23 20:00 102 H 19 107/64 91 L 09/08/23 19:30 103 H 24 108/68 91 L 09/08/23 19:00 110 H 10 L 100/64 91 L 09/08/23 18:34 09/08/23 18:30 112 H 16 102/65 91 L 09/08/23 18:19 09/08/23 18:00 110 H 14 122/77 90 L 09/08/23 17:59 09/08/23 17:30 97.9 F 105 H 14 111/67 94 L 09/08/23 17:29 09/08/23 14:30 97.4 F L 91 20 94/55 101/58 94 L 09/08/23 14:00 85 15 101/70 85 L 09/08/23 13:31 91 20 101/70 92 L 09/08/23 13:00 90 18 92/63 97 09/08/23 12:00 97 22 103/62 96 09/08/23 11:51 92 22 09/08/23 11:00 87 18 99/60 96 09/08/23 10:50 96 20 99/60 96 09/08/23 10:44 98 25 H 93 L FiO2 09/09/23 08:54 45 09/09/23 07:00 09/09/23 06:56 45 09/09/23 06:00 09/09/23 05:00 09/09/23 04:17 65 09/09/23 04:00 65 09/09/23 03:00 09/09/23 02:00 09/09/23 01:30 09/09/23 01:00 09/09/23 00:35 65 09/09/23 00:30 09/09/23 00:17 09/09/23 00:00 65 09/08/23 23:30 09/08/23 23:00 09/08/23 22:30 09/08/23 22:00 09/08/23 21:30 09/08/23 21:07 65 09/08/23 21:00 09/08/23 20:58 60 09/08/23 20:30 09/08/23 20:00 60 09/08/23 19:30 09/08/23 19:00 60 09/08/23 18:34 50 09/08/23 18:30 60 09/08/23 18:19 60 09/08/23 18:00 60 09/08/23 17:59 50 09/08/23 17:30 60 09/08/23 17:29 60 09/08/23 14:30 09/08/23 14:00 09/08/23 13:31 09/08/23 13:00 09/08/23 12:00 09/08/23 11:51 09/08/23 11:00 09/08/23 10:50 09/08/23 10:44 Intake and Output 09/08/23 09/09/23 09/09/23 22:59 06:59 14:59 Intake Total 2742.842 2280.639 160.674 Output Total 915 850 140 Balance 7350.664 3476.639 20.674 Intake: IV 2734 2224 128 Piperacillin-Tazobactam 3 100 100 .375 gm In Sodium Chloride 0.9% 100 ml @ 25 mls/hr IVPB Q8H [facility] Rx#: [id number] Pressure Bag 9 24 3 Sodium Chloride 0.9% 1, 375 1000 125 000 ml @ 125 mls/hr IV . Q8H [facility] Rx#:[id number] Sodium Chloride 0.9% 1, 1000 000 ml @ 999 mls/hr IV . Q1H1M [facility] Rx#:[id number] Sodium Chloride 0.9% 500 1000 ml 500 ml @ 999 mls/hr IV .Q31M [facility] Rx#:[id number] metroNIDAZOLE-NS PMX 500 100 100 mg In Saline 1 100ml.bag @ 100 mls/hr IVPB Q8H [facility] Rx#:[id number] Intake, IV Titration 8.842 56.639 32.674 Amount propofoL 1,000 mg In 8.842 56.639 32.674 Empty Bag 1 bag @ 15 MCG/ KG/MIN 4.613 mls/hr IV . [id number] [facility] Rx#:[id number] Output: Drainage 380 475 100 Abdomen 380 475 100 Urine 460 375 40 Estimated Blood Loss 75 Other: Voiding Method Indwelling Catheter Indwelling Catheter Weight 56.3 kg ABP, PAP, CO, CI - Last 8 Hours Arterial Blood Pressure 91/42 Arterial Blood Pressure 90/44 Arterial Blood Pressure 100/47 Arterial Blood Pressure 99/46 Arterial Blood Pressure 92/41 Pt appears cachectic. In no acute distress. Intubated and sedated. No jaundice. Results CBC & Chem 7: 09/09/23 04:20 09/09/23 04:20 Labs: Abnormal Lab Results - Last 24 Hours (Table) 09/08/23 09/08/23 09/08/23 Range/Units 10:25 10:25 10:25 WBC 16.0 H (3.8-10.6) k/uL RBC (4.30-5.90) m/uL Hgb (13.0-17.5) gm/dL Hct (39.0-53.0) % RDW 16.3 H (11.5-15.5) % Plt Count 541 H (150-450) k/uL Neutrophils # 14.8 H (1.3-7.7) k/uL Lymphocytes # 0.5 L (1.0-4.8) k/uL ABG pH (7.35-7.45) ABG pCO2 (35-45) mmHg ABG pO2 (83-108) mmHg ABG HCO3 (21-25) mmol/L ABG Total CO2 (19-24) mmol/L ABG O2 Saturation (94-97) % Sodium 127 L (137-145) mmol/L Potassium 5.4 H (3.5-5.1) mmol/L Chloride 83 L (98-107) mmol/L Carbon Dioxide (22-30) mmol/L BUN 35 H (9-20) mg/dL Creatinine 1.43 H (0.66-1.25) mg/dL Plasma Lactic Acid David 3.3 H* (0.7-2.0) mmol/L Calcium (8.4-10.2) mg/dL Magnesium 2.5 H (1.6-2.3) mg/dL Total Bilirubin 1.5 H (0.2-1.3) mg/dL Alkaline Phosphatase 146 H (38-126) U/L Albumin 3.0 L (3.5-5.0) g/dL Urine Protein (Negative) Urine Ketones (Negative) Urine Blood (Negative) Urine RBC (0-5) /hpf Urine Bacteria (None) /hpf Hyaline Casts (0-2) /lpf Urine Mucus (None) /hpf 09/08/23 09/08/23 09/08/23 Range/Units 17:46 20:01 20:47 WBC (3.8-10.6) k/uL RBC (4.30-5.90) m/uL Hgb (13.0-17.5) gm/dL Hct (39.0-53.0) % RDW (11.5-15.5) % Plt Count (150-450) k/uL Neutrophils # (1.3-7.7) k/uL Lymphocytes # (1.0-4.8) k/uL ABG pH 7.11 L* 7.21 L (7.35-7.45) ABG pCO2 81 H* 57 H (35-45) mmHg ABG pO2 63 L (83-108) mmHg ABG HCO3 26 H (21-25) mmol/L ABG Total CO2 28 H 25 H (19-24) mmol/L ABG O2 Saturation 89.3 L 83.8 L (94-97) % Sodium (137-145) mmol/L Potassium (3.5-5.1) mmol/L Chloride (98-107) mmol/L Carbon Dioxide (22-30) mmol/L BUN (9-20) mg/dL Creatinine (0.66-1.25) mg/dL Plasma Lactic Acid David (0.7-2.0) mmol/L Calcium (8.4-10.2) mg/dL Magnesium (1.6-2.3) mg/dL Total Bilirubin (0.2-1.3) mg/dL Alkaline Phosphatase (38-126) U/L Albumin (3.5-5.0) g/dL Urine Protein 1+ H (Negative) Urine Ketones 1+ H (Negative) Urine Blood Moderate H (Negative) Urine RBC 18 H (0-5) /hpf Urine Bacteria Rare H (None) /hpf Hyaline Casts 17 H (0-2) /lpf Urine Mucus Occasional H (None) /hpf 09/09/23 09/09/23 09/09/23 Range/Units 04:15 04:20 04:20 WBC 11.9 H (3.8-10.6) k/uL RBC 3.80 L (4.30-5.90) m/uL Hgb 11.9 L D (13.0-17.5) gm/dL Hct 37.4 L (39.0-53.0) % RDW 16.2 H (11.5-15.5) % Plt Count (150-450) k/uL Neutrophils # 11.0 H (1.3-7.7) k/uL Lymphocytes # 0.3 L (1.0-4.8) k/uL ABG pH 7.33 L (7.35-7.45) ABG pCO2 (35-45) mmHg ABG pO2 245 H (83-108) mmHg ABG HCO3 20 L (21-25) mmol/L ABG Total CO2 (19-24) mmol/L ABG O2 Saturation 99.0 H (94-97) % Sodium 133 L (137-145) mmol/L Potassium (3.5-5.1) mmol/L Chloride (98-107) mmol/L Carbon Dioxide 18 L (22-30) mmol/L BUN 25 H (9-20) mg/dL Creatinine (0.66-1.25) mg/dL Plasma Lactic Acid David (0.7-2.0) mmol/L Calcium 7.0 L (8.4-10.2) mg/dL Magnesium (1.6-2.3) mg/dL Total Bilirubin (0.2-1.3) mg/dL Alkaline Phosphatase (38-126) U/L Albumin (3.5-5.0) g/dL Urine Protein (Negative) Urine Ketones (Negative) Urine Blood (Negative) Urine RBC (0-5) /hpf Urine Bacteria (None) /hpf Hyaline Casts (0-2) /lpf Urine Mucus (None) /hpf Chest x-ray: report reviewed CT scan - abdomen: report reviewed CT scan - chest: report reviewed CT scan - pelvis: report reviewed Assessment and Plan Assessment: 1. Intraabdominal abscess 2. Lung cancer 3. Hypoxic respiratory failure 4. Reactive leukocytosis and thrombocytosis 5. Dehydration 6. PAM 7. Hyponatreamia Plan: Mr. Todd is a very pleasant 68 yo male with a recent diagnosis of lung cancer, recently started on chemoRT 1 week [employer], who comes in for increased weakness and AP, found to have intraabdominal free air, taken urgently to the OR and found to have intraabdominal abscess that was drained. Currently intubated and sedated. Unfortunately we do not have any records of pt's history, not seen by our team, and pt intubated and sedated and no family at bedside. Unknown what exactly he is receiving as far as lung cancer treatment, but regardless this needs to be on hold and will need to obtain records. - Hold chemotherapy and RT until pt recovers - Watch CBC, if he becomes neutropenic, may need G-CSF, however currently with reactive leukocytosis - PAM and hyponatremia due to dehydration, improving with hydration - Post op care as per surgery team - ID and pulm on board, ABx as per ID - Will need to obtain records to clarify pt's treatment, which we can proceed with during the week. Will continue to follow pt with you. Discussed with nursing staff.
[2023-09-10 00:23] LABS: Glucose,Whole Blood 89 mg/dL (70-110)
[2023-09-10] MEDS: HEPARIN SODIUM,PORCINE 5,000 UNIT/ML 1 ML VIAL SQ SCH ×3 (00:23→16:18)
[2023-09-10 03:46] LABS: Anisocytosis Slight; Basophils % (A) 0 %; Eosinophils % (A) 0 %; HCT 35.1 % (39.0-53.0); HGB 11.3 gm/dL (13.0-17.5); Lymphocytes # (A) 0.3 k/uL (1.0-4.8); Lymphocytes % (A) 3 %; MCH 31.6 pg (25.0-35.0); MCHC 32.2 g/dL (31.0-37.0); MCV 98.4 fL (80.0-100.0); Macrocytosis Slight; Mean Platelet Volume 8.3; Monocytes # (A) 0.3 k/uL (0-1.0); Monocytes % (A) 3 %; Neutrophils # (A) 8.9 k/uL (1.3-7.7); Neutrophils % (A) 94 %; Platelet Count 257 k/uL (150-450); RBC 3.57 m/uL (4.30-5.90); RDW 16.6 % (11.5-15.5); WBC 9.5 k/uL (3.8-10.6)
[2023-09-10 03:58] LABS: African American GFR (CKD) >90 (>60 ml/min/1.73 sqM); Anion Gap 11 mmol/L; Blood Urea Nitrogen 15 mg/dL (9-20); Carbon Dioxide 18 mmol/L (22-30); Chloride 107 mmol/L (98-107); Glucose 83 mg/dL (74-99); Non-African American GFR(CKD) >90 (>60 ml/min/1.73 sqM); Potassium 2.8 mmol/L (3.5-5.1); Sodium 136 mmol/L (137-145)
[2023-09-10] MEDS ORDERED: Potassium Replacement Protocol 1 EACH MISC MISCELLANE PRN ×3 (04:01→23:54)
[2023-09-10] MEDS: metroNIDAZOLE-NS PMX 500 MG in SALINE 1 100ML.BAG IVPB SCH ×3 (04:15→20:19)
[2023-09-10] MEDS: POTASSIUM CHLORIDE 20 MEQ in WATER FOR INJECTION 1 100ML.BAG IVPB SCH ×5 (04:15→20:09)
[2023-09-10] MEDS: PIPERACILLIN-TAZOBACTAM 3.375 GM in SODIUM CHLORIDE 0.9% 100 ML IVPB SCH ×3 (04:15→20:20)
[2023-09-10] MEDS: HYDROmorphone 0.5 MG/0.5 ML SYRINGE IVP PRN ×3 (04:48→21:34)
[2023-09-10 06:16] LABS: Glucose,Whole Blood 83 mg/dL (70-110)
[2023-09-10 06:26] LABS: ABG Base Excess -3.5 mmol/L; ABG HCO3 22 mmol/L (21-25); ABG Oxygen Saturation 97.8 % (94-97); ABG PCO2 39 mmHg (35-45); ABG PH 7.36 (7.35-7.45); ABG PO2 139 mmHg (83-108); ABG TCO2 23 mmol/L (19-24)
--- NOTE | 2023-09-10 07:59 | XR ---
EXAMINATION TYPE: XR chest 1V portable DATE OF EXAM: 09/10/2023 5:21 AM CLINICAL INDICATION:Male, 68 years old with history of Tube placement; COMPARISON: Chest radiographs from 09/09/2023. TECHNIQUE: XR chest 1V portable Frontal view of the chest. FINDINGS: Rotated exam. Lungs/Pleura: There is no evidence of pleural effusion, focal consolidation, or pneumothorax. Pulmonary vascularity: Unremarkable. Heart/mediastinum: Cardiomediastinal silhouette is unremarkable. Musculoskeletal: No acute osseous pathology. Fixation hardware in the left shoulder. Other findings: None Lines/Tubes: Endotracheal tube at the level of the aortic arch. Nasogastric tube in appropriate position. Right central venous catheter with tip at the superior vena cava. IMPRESSION: 1. Stable support tubes and line. 2. Persistent airspace opacities/pulmonary vascular congestion throughout the lungs. For congestive heart failure and pneumonia.
[2023-09-10] MEDS: PANTOPRAZOLE 40 MG/10 ML VIAL IVP SCH ×2 (08:06→20:19)
[2023-09-10] MEDS: CHLORHEXIDINE GLUCONATE 15 ML CUP MUCOUS MEM SCH ×2 (08:07→20:19)
--- NOTE | 2023-09-10 08:51 | CA ---
Transthoracic Echo Report Name: Joel Todd Age: 68 Gender: M : 1955 Exam Date: 09/09/2023 17:20 Exam Location: [facility] Ht (in): 70 Wt (lb): 124 Ordering Physician: Kvng Sow DO ([email or web address]) Attending/Referring Phys: [employer] Machine Operator Cathi Mclain RDCS Procedure CPT: Indications: re: CHF Cardiac Hx: Technical Quality: Fair Contrast 1: Total Dose (mL): Contrast 2: Total Dose (mL): MEASUREMENTS (Male / Female) Normal Values 2D ECHO LV Diastolic Diameter PLAX 3.7 cm 4.2 - 5.9 / 3.9 - 5.3 cm LV Systolic Diameter PLAX 2.2 cm IVS Diastolic Thickness 1.4 cm 0.6 - 1.0 / 0.6 - 0.9 cm LVPW Diastolic Thickness 1.1 cm 0.6 - 1.0 / 0.6 - 0.9 cm LV Relative Wall Thickness 0.7 RV Internal Dim ED PLAX 4.6 cm LA Volume 61.9 cm??? 18 - 58 / 22 - 52 cm??? LA Volume Index 37.5 cm???/m??? 16 - 28 cm???/m??? M-MODE Aortic Root Diameter MM 3.1 cm LA Systolic Diameter MM 2.7 cm LA Ao Ratio MM 0.9 AV Cusp Separation MM 1.6 cm DOPPLER AV Peak Velocity 134.3 cm/s AV Peak Gradient 7.2 mmHg AV Mean Velocity 89.9 cm/s AV Mean Gradient 3.7 mmHg AV Velocity Time Integral 21.9 cm LVOT Peak Velocity 98.9 cm/s LVOT Peak Gradient 3.9 mmHg LVOT Velocity Time Integral 15.9 cm MV Area PHT 5.2 cm??? Mitral E Point Velocity 84.9 cm/s Mitral A Point Velocity 76.4 cm/s Mitral E to A Ratio 1.1 MV Deceleration Time 145.1 ms MV E' Velocity 7.0 cm/s Mitral E to MV E' Ratio 12.2 TR Peak Velocity 290.8 cm/s TR Peak Gradient 33.8 mmHg Right Ventricular Systolic Press 37.4 mmHg FINDINGS Left Ventricle Mildly increased left ventricular wall thickness. Left ventricular cavity size normal. Normal left ventricular systolic function with no obvious regional wall motion abnormalities. Left ventricular ejection fraction is estimated at 55 %. Right Ventricle Mild to moderate right ventricular dilatation. Mild pulmonary hypertension. Right Atrium Mild right atrial dilatation. Left Atrium Mildly increased left atrial volume. Interatrial septal aneurysm. Mitral Valve Structurally normal mitral valve. [id number] mitral regurgitation. Aortic Valve Trileaflet aortic valve. No aortic valve stenosis or regurgitation. Tricuspid Valve Structurally normal tricuspid valve. Mild tricuspid regurgitation. Pulmonic Valve Trace pulmonic regurgitation. Pericardium No pericardial effusion. Aorta Normal size aortic root and proximal ascending aorta. CONCLUSIONS Mildly increased left ventricular wall thickness Left ventricular EF 55% RVSP 37 Mild right atrial dilation [id number] mitral regurgitation Mild tricuspid regurgitation Previewed by: Dr. Kvng Sow DO (Electronically Signed) Final Date: 10 September 2023 08:50
--- NOTE | 2023-09-10 09:24 | P.PN ---
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 for the patient has received radiation therapy currently undergoing chemotherapy presenting to the ER for evaluation of abdominal pain patient did have CT abdominal pelvis with evidence of intraperitoneal air patient was taken to the OR status post abdominal washout exact site of perforation could not be determined patient admitted to the ICU after surgery On today's evaluation that is 09/09/2023, the patient is afebrile the patient is requiring less pressor support per the nursing staff patient is on the vent FiO2 at 45%, no significant purulent secretions through the ET or any other changes reported by the nursing staff. Patient did have a white count of 11.9 that is down from yesterday of 16,000 creatinine is 1.23 blood and abdominal cultures are currently pending Objective - Vital Signs Vital signs: Vital Signs Temp 97.5 F L 09/09/23 04:00 Pulse 78 09/09/23 07:00 Resp 14 09/09/23 07:00 BP 89/55 09/09/23 07:00 Pulse Ox 98 09/09/23 07:00 FiO2 45 09/09/23 08:54 Intake & Output 09/08/23 09/09/23 09/09/23 18:59 06:59 18:59 Intake Total 1250 3873.481 160.674 Output Total 375 1390 140 Balance 875 2483.481 20.674 Weight 51.256 kg 56.3 kg Intake: IV 1250 3808 128 Piperacillin-Tazobactam 3 200 .375 gm In Sodium Chloride 0.9% 100 ml @ 25 mls/hr IVPB Q8H [facility] Rx#: [id number] Pressure Bag 33 3 Sodium Chloride 0.9% 1, 1375 125 000 ml @ 125 mls/hr IV . Q8H [facility] Rx#:[id number] Sodium Chloride 0.9% 1, 1000 000 ml @ 999 mls/hr IV . Q1H1M [facility] Rx#:[id number] Sodium Chloride 0.9% 500 1000 ml 500 ml @ 999 mls/hr IV .Q31M [facility] Rx#:[id number] metroNIDAZOLE-NS PMX 500 200 mg In Saline 1 100ml.bag @ 100 mls/hr IVPB Q8H [facility] Rx#:[id number] Intake, IV Titration 65.481 32.674 Amount propofoL 1,000 mg In 65.481 32.674 Empty Bag 1 bag @ 15 MCG/ KG/MIN 4.613 mls/hr IV . [id number] [facility] Rx#:[id number] Output: Drainage 855 100 Abdomen 855 100 Urine 300 535 40 Estimated Blood Loss 75 Other: Voiding Method Indwelling Catheter Indwelling Catheter ABP, PAP, CO, CI - Last Documented Arterial Blood Pressure 91/42 - Exam GENERAL DESCRIPTION: Elderly male intubated on the vent RESPIRATORY SYSTEM: Unlabored breathing , decreased breath sounds at bases HEART: S1 S2 regular rate and rhythm ABDOMEN: Slightly tense abdominal incision intact EXTREMITIES: No edema feet - Labs CBC & Chem 7: 09/10/23 03:30 09/10/23 03:30 Labs: Abnormal Lab Results - Last 24 Hours (Table) 09/08/23 09/08/23 09/08/23 Range/Units 10:25 17:46 20:01 WBC (3.8-10.6) k/uL RBC (4.30-5.90) m/uL Hgb (13.0-17.5) gm/dL Hct (39.0-53.0) % RDW (11.5-15.5) % Neutrophils # (1.3-7.7) k/uL Lymphocytes # (1.0-4.8) k/uL ABG pH 7.11 L* (7.35-7.45) ABG pCO2 81 H* (35-45) mmHg ABG pO2 (83-108) mmHg ABG HCO3 26 H (21-25) mmol/L ABG Total CO2 28 H (19-24) mmol/L ABG O2 Saturation 89.3 L (94-97) % Sodium (137-145) mmol/L Carbon Dioxide (22-30) mmol/L BUN (9-20) mg/dL Plasma Lactic Acid David 3.3 H* (0.7-2.0) mmol/L Calcium (8.4-10.2) mg/dL Urine Protein 1+ H (Negative) Urine Ketones 1+ H (Negative) Urine Blood Moderate H (Negative) Urine RBC 18 H (0-5) /hpf Urine Bacteria Rare H (None) /hpf Hyaline Casts 17 H (0-2) /lpf Urine Mucus Occasional H (None) /hpf 09/08/23 09/09/23 09/09/23 Range/Units 20:47 04:15 04:20 WBC 11.9 H (3.8-10.6) k/uL RBC 3.80 L (4.30-5.90) m/uL Hgb 11.9 L D (13.0-17.5) gm/dL Hct 37.4 L (39.0-53.0) % RDW 16.2 H (11.5-15.5) % Neutrophils # 11.0 H (1.3-7.7) k/uL Lymphocytes # 0.3 L (1.0-4.8) k/uL ABG pH 7.21 L 7.33 L (7.35-7.45) ABG pCO2 57 H (35-45) mmHg ABG pO2 63 L 245 H (83-108) mmHg ABG HCO3 20 L (21-25) mmol/L ABG Total CO2 25 H (19-24) mmol/L ABG O2 Saturation 83.8 L 99.0 H (94-97) % Sodium (137-145) mmol/L Carbon Dioxide (22-30) mmol/L BUN (9-20) mg/dL Plasma Lactic Acid David (0.7-2.0) mmol/L Calcium (8.4-10.2) mg/dL Urine Protein (Negative) Urine Ketones (Negative) Urine Blood (Negative) Urine RBC (0-5) /hpf Urine Bacteria (None) /hpf Hyaline Casts (0-2) /lpf Urine Mucus (None) /hpf 09/09/23 Range/Units 04:20 WBC (3.8-10.6) k/uL RBC (4.30-5.90) m/uL Hgb (13.0-17.5) gm/dL Hct (39.0-53.0) % RDW (11.5-15.5) % Neutrophils # (1.3-7.7) k/uL Lymphocytes # (1.0-4.8) k/uL ABG pH (7.35-7.45) ABG pCO2 (35-45) mmHg ABG pO2 (83-108) mmHg ABG HCO3 (21-25) mmol/L ABG Total CO2 (19-24) mmol/L ABG O2 Saturation (94-97) % Sodium 133 L (137-145) mmol/L Carbon Dioxide 18 L (22-30) mmol/L BUN 25 H (9-20) mg/dL Plasma Lactic Acid David (0.7-2.0) mmol/L Calcium 7.0 L (8.4-10.2) mg/dL Urine Protein (Negative) Urine Ketones (Negative) Urine Blood (Negative) Urine RBC (0-5) /hpf Urine Bacteria (None) /hpf Hyaline Casts (0-2) /lpf Urine Mucus (None) /hpf Assessment and Plan (1) Sepsis Current Visit: Yes Status: Acute Code(s): A41.9 - SEPSIS, UNSPECIFIED ORGANISM SNOMED Code(s): 57201753 (2) Abdominal abscess Current Visit: Yes Status: Acute Code(s): YOC6446 - SNOMED Code(s): 04235319 Plan: 1patient to the hospital with sepsis in this with tachycardia hypotension leukocytosis presented with abdominal pain and did have a large free in traperitoneal air concerning for perforation and needed to cover for the enteric gram Negative both aerobes and anaerobes 2-patient did have renal insufficiency and high risk of nephrotoxicity 3-Patient is status post laparotomy abdominal washout and abdominal cultures are currently pending. 4we will continue the patient on Zosyn while waiting for the culture to finalize and monitor clinical course closely Family at the bedside question concerns were answered Dictation was produced using Sidecar dictation software. please excuse any grammatical, word or spelling errors.
--- NOTE | 2023-09-10 10:53 | P.PN ---
Subjective Progress Note Date: 09/10/23 Principal diagnosis: Pneumoperitoneum Patient remains on the ventilator. They're working towards weaning today however. White blood cell count is normal. He is afebrile. Remains on low- dose Levophed. Still making good urine. HILARIO drain serosanguineous. Objective - Vital Signs Vital signs: Vital Signs Temp 98.3 F 09/10/23 08:00 Pulse 80 09/10/23 10:15 Resp 22 09/10/23 10:00 BP 96/63 09/10/23 10:15 Pulse Ox 92 L 09/10/23 10:15 FiO2 60 09/10/23 10:37 Intake & Output 09/09/23 09/10/23 09/10/23 18:59 06:59 18:59 Intake Total 2847.442 2482.608 549.244 Output Total 1255 1320 290 Balance 1504.313 0992.608 259.244 Weight 56.3 kg 60.3 kg Intake: IV 2733 2264 484 Piperacillin-Tazobactam 3 100 200 .375 gm In Sodium Chloride 0.9% 100 ml @ 25 mls/hr IVPB Q8H [facility] Rx#: [id number] Potassium Chloride 20 meq 200 100 In Water For Injection 1 100ml.bag @ 50 mls/hr IVPB Q2H [facility] Rx#: [id number] Pressure Bag 33 39 9 Sodium Chloride 0.9% 1, 1500 1625 375 000 ml @ 125 mls/hr IV . Q8H [facility] Rx#:[id number] Sodium Chloride 0.9% 1, 1000 000 ml @ 999 mls/hr IV . Q1H1M [facility] Rx#:[id number] metroNIDAZOLE-NS PMX 500 100 200 mg In Saline 1 100ml.bag @ 100 mls/hr IVPB Q8H [facility] Rx#:[id number] Intake, IV Titration 114.442 218.608 65.244 Amount Norepinephrine 8 mg In 18.465 128.297 42.051 Sodium Chloride 0.9% 250 ml @ 0.03 MCG/KG/MIN 3. 268 mls/hr IV .Q24H [facility] Rx#:[id number] propofoL 1,000 mg In 95.977 90.311 23.193 Empty Bag 1 bag @ 15 MCG/ KG/MIN 4.613 mls/hr IV . [id number] [facility] Rx#:[id number] Output: Gastric Drainage 260 55 Drainage 400 500 40 Abdomen 400 500 40 Urine 595 765 250 Other: Voiding Method Indwelling Catheter Indwelling Catheter ABP, PAP, CO, CI - Last Documented Arterial Blood Pressure 105/42 - Exam Abdomen: Soft, nondistended, incision clean and dry, HILARIO serosanguineous, nontender - Labs CBC & Chem 7: 09/10/23 03:30 09/10/23 03:30 Labs: Abnormal Lab Results - Last 24 Hours (Table) 09/10/23 09/10/23 09/10/23 Range/Units 03:30 03:30 04:41 RBC 3.57 L (4.30-5.90) m/uL Hgb 11.3 L (13.0-17.5) gm/dL Hct 35.1 L (39.0-53.0) % RDW 16.6 H (11.5-15.5) % Neutrophils # 8.9 H (1.3-7.7) k/uL Lymphocytes # 0.3 L (1.0-4.8) k/uL ABG pO2 139 H (83-108) mmHg ABG O2 Saturation 97.8 H (94-97) % Sodium 136 L (137-145) mmol/L Potassium 2.8 L (3.5-5.1) mmol/L Carbon Dioxide 18 L (22-30) mmol/L Calcium 7.0 L (8.4-10.2) mg/dL Microbiology - Last 24 Hours (Table) 09/08/23 16:05 Wound Culture - Preliminary Abdomen Gram Neg Bacilli Gram Neg Bacilli#2 09/08/23 10:20 Blood Culture - Preliminary Blood 09/08/23 10:10 Blood Culture - Preliminary Blood Assessment and Plan (1) Pneumoperitoneum of unknown etiology Narrative/Plan: Patient doing well today. Hopefully we'll be able to extubate today. Continue antibiotics. Follow cultures. Keep nothing by mouth for now. Current Visit: Yes Status: Acute Code(s): K66.8 - OTHER SPECIFIED DISORDERS OF PERITONEUM SNOMED Code(s): 73179167
[2023-09-10] MEDS: SODIUM CHLORIDE 0.9% 1,000 ML IV SCH ×3 (10:54→17:10)
--- NOTE | 2023-09-10 11:04 | P.PN ---
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 He received 1 week of radiation therapy and is currently receiv ing chemotherapy. He presented to the emergency room earlier today with complaints of abdominal pain for the past 1-2 weeks. Chest x-ray revealed free air under the diaphragm. Computed tomography scan of the chest abdomen pelvis revealed moderate to large free intraperitoneal air. Exact source is unclear. There are numerous small foci of air within the pelvis which could represent small bowel or sigmoid colonic pneumatosis and possible site of hollow viscus perforation. There is reactive mild to moderate abdominopelvic ascites. There is bibasilar consolidation left greater than right. There is an internal area of 6.3 cm fluid. Possibly related to known lung cancer. Consider necrotic tumor versus pulmonary abscess.. Evidence of destruction of the overlying left posterior ninth and 10th ribs. Moderate to severe COPD. Count 16.0. Hemoglobin 15.9. Platelets 541. Sodium 127. Potassium 5.4. Bicarb 23. BUN 35. Creatinine 1.43. Lactic acid 3.3. ProBNP 4600. Viral screen negative. He will be taken urgently to the operating room. He most likely will require prolonged mechanical ventilation postoperatively and we're consulted for the same. He is seen in the preoperative area. He is quite cachectic. BMI of 16.2 kg/m. He is awake and alert. He does have abdominal discomfort. He denies any worsening shortness of breath, cough or congestion. He is maintaining O2 saturations in the 90s on 2 L/m per nasal cannula. At one point he was 85% saturations on room air. He has an albuterol HFA that he uses at home. He is not oxygen dependent. Family is at the bedside. Patient was reevaluated today on 09/09/2023, patient underwent exploratory laparotomy yesterday he was found to have pneumoperitoneum with abdominal abscess and peritonitis, could not find any specific site for perforation, patient had drainage of abdominal abscess with lysis of adhesions. Postoperatively patient was sent to the ICU on mechanical ventilation. And I was notified about this patient last night and manage his ventilator settings overnight and hemodynamic status is marginal. Patient is now on assist control rate of 20 to tell volume 400 FiO2 45% and PEEP of 5. ABG on 65% FiO2 showed a pO2 of 245 pCO2 39 pH of 7.39. Blood pressure is soft, hence I recommended more fluid boluses to be given, and use norepinephrine if necessary. Patient received at least 2 L of fluid boluses yesterday. Urine output is marginal at 35 mL per hour. He is on Flagyl and Zosyn. Patient is also on propofol at 25 mcg/kg/m IV fluid is at 1 25 mL per hour in the form of 0.9 normal saline. Chest x-ray showed multifocal airspace opacities especially in the left lung, and these are chronic related to his recent lung cancer. Doubt acute infectious process, nonetheless the patient is covered with antibiotics for his abdominal sepsis. Sitting the patient is yet to fully hemodynamically stable, I would not address weaning and extubation today. But I will cut down his propofol and at least try to assess his mental status. And this will be done on a daily basis. CODE STATUS was changed yesterday after surgery from full code to DO NOT RESUSCITATE CODE STATUS. ABG today as noted above to 45/39/7.33 WBC count is 11.9 hemoglobin 11.9, sodium 133 potassium 4.0 BUN is 25 creatinine 1.23 Reevaluated today on 09/10/23, patient remains in the ICU, intubated and mechanically ventilated. Patient is on assist control rate of 22 tidal volume 400 FiO2 45% and PEEP of 5 ABG showed a pO2 of 139 pCO2 39 pH of 7.36, hence cut down his FiO2 from 45% to 40%. Patient is still hemodynamically unstable requiring norepinephrine at 0.07 mcg/kg/m his IV fluids remains at 1 25 mL per hour using 0.9 normal saline, propofol is at 15 mcg/kg/m. Patient remains on Zosyn and Flagyl he has good urine output, and his labs were all reviewed. WBC count is 9.5 hemoglobin is 11.3. Platelets are 257 basic metabolic profile showed low potassium of 2.8 being addressed accordingly. Renal profile is normal bicarb is 18. Chest x-ray continues to show persistentopacities and pulmonary vascular congestion throughout the lungs more so in the left lower lobe related to his recently diagnosed and treated congenic carcinoma underlying pneumonia is a possibility, but felt to be less likely, nonetheless patient remains on antibiotics including Zosyn and Flagyl. Objective - Vital Signs Vital signs: Vital Signs Temp 98.3 F 09/10/23 08:00 Pulse 80 09/10/23 10:15 Resp 22 09/10/23 10:00 BP 96/63 09/10/23 10:15 Pulse Ox 92 L 09/10/23 10:15 FiO2 60 09/10/23 10:37 Intake & Output 09/09/23 09/10/23 09/10/23 18:59 06:59 18:59 Intake Total 2847.442 2482.608 550.397 Output Total 1255 1320 290 Balance 2124.173 2345.608 260.397 Weight 56.3 kg 60.3 kg Intake: IV 2733 2264 484 Piperacillin-Tazobactam 3 100 200 .375 gm In Sodium Chloride 0.9% 100 ml @ 25 mls/hr IVPB Q8H [facility] Rx#: [id number] Potassium Chloride 20 meq 200 100 In Water For Injection 1 100ml.bag @ 50 mls/hr IVPB Q2H [facility] Rx#: [id number] Pressure Bag 33 39 9 Sodium Chloride 0.9% 1, 1500 1625 375 000 ml @ 125 mls/hr IV . Q8H [facility] Rx#:[id number] Sodium Chloride 0.9% 1, 1000 000 ml @ 999 mls/hr IV . Q1H1M [facility] Rx#:[id number] metroNIDAZOLE-NS PMX 500 100 200 mg In Saline 1 100ml.bag @ 100 mls/hr IVPB Q8H [facility] Rx#:[id number] Intake, IV Titration 114.442 218.608 66.397 Amount Norepinephrine 8 mg In 18.465 128.297 42.051 Sodium Chloride 0.9% 250 ml @ 0.03 MCG/KG/MIN 3. 268 mls/hr IV .Q24H [facility] Rx#:[id number] propofoL 1,000 mg In 95.977 90.311 24.346 Empty Bag 1 bag @ 15 MCG/ KG/MIN 4.613 mls/hr IV . [id number] [facility] Rx#:[id number] Output: Gastric Drainage 260 55 Drainage 400 500 40 Abdomen 400 500 40 Urine 595 765 250 Other: Voiding Method Indwelling Catheter Indwelling Catheter ABP, PAP, CO, CI - Last Documented Arterial Blood Pressure 105/42 - Exam Physical Exam: Revealed a 68-year-old white male cachectic, frail looking, chronically ill-looking on mechanical ventilation. HEENT:[Neck is supple.] [No neck masses.] [No thyromegaly.] [No JVD.] Endotracheal tube and orogastric tube are intact, right IJ double catheter is intact. Chest: [Rhonchi Noted Bilaterally Symmetrical Chest Expansion. Cardiac Exam: [Normal S1 and S2, no S3 gallop, no murmur.] Abdomen: [Postsurgical, soft, nontender, HILARIO drain output was 600 mL of serosanguineous fluid overnight Extremities: [No clubbing, no edema, no cyanosis.] Neurological Exam: Off sedation, patient was noted to be arousable, followed simple instructions, Psychiatric: Could not assess. Skin: No rashes. - Labs CBC & Chem 7: 09/10/23 03:30 09/10/23 03:30 Labs: Abnormal Lab Results - Last 24 Hours (Table) 09/10/23 09/10/23 09/10/23 Range/Units 03:30 03:30 04:41 RBC 3.57 L (4.30-5.90) m/uL Hgb 11.3 L (13.0-17.5) gm/dL Hct 35.1 L (39.0-53.0) % RDW 16.6 H (11.5-15.5) % Neutrophils # 8.9 H (1.3-7.7) k/uL Lymphocytes # 0.3 L (1.0-4.8) k/uL ABG pO2 139 H (83-108) mmHg ABG O2 Saturation 97.8 H (94-97) % Sodium 136 L (137-145) mmol/L Potassium 2.8 L (3.5-5.1) mmol/L Carbon Dioxide 18 L (22-30) mmol/L Calcium 7.0 L (8.4-10.2) mg/dL Microbiology - Last 24 Hours (Table) 09/08/23 16:05 Wound Culture - Preliminary Abdomen Gram Neg Bacilli Gram Neg Bacilli#2 09/08/23 10:20 Blood Culture - Preliminary Blood 09/08/23 10:10 Blood Culture - Preliminary Blood Assessment and Plan Assessment: Impression: Status post exploratory laparotomy, drainage of abdominal abscess and lysis of adhesions most likely secondary to recent colonic perforation., Could not be seen on exploratory laparotomy. Abdominal pain secondary to moderate to large free intraperitoneal air. 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 Moderate to severe chronic obstructive pulmonary disease Former smoker Severe cachexia/protein calorie malnutrition with a BMI of 16.2 kg per metered square Plan: Continue ventilatory support, will give the patient sedation interruption today, and we will address for weaning if possible. Assuming the patient tolerates this today. Consider pressors for hemodynamic support if no improvement with fluid boluses Continue antibiotics Zosyn and Flagyl GI and DVT prophylaxis Start patient on TPN/interstitial support Continue propofol and Dilaudid however patient would have sedation interruption and possibly weaning parameters today. Continue heparin subcu Continue updrafts/DuoNeb Prognosis remains extremely poor and guarded Patient is critically ill. Critical care time is over 30 minutes T Time with Patient: Greater than 30
[2023-09-10 12:07] LABS: Glucose,Whole Blood 72 mg/dL (70-110)
--- NOTE | 2023-09-10 12:27 | P.PN ---
Subjective HISTORY OF PRESENTING ILLNESS Patient is pleasant 68-year-old male with history of squamous cell carcinoma the lung since April 2023 receiving radiation and chemotherapy, COPD, prior tobacco abuse, cachexia who presented secondary abdominal pain. CT abdomen and pelvis showed moderate to large free intraperitoneal air, mild to moderate abdominal ascites, by basilar consolidation left greater than right consistent with possible infectious versus aspiration pneumonitis. Cardiology was consult for congestive heart failure. Blood work shows white blood cell count 16.0, platelets 541, hemoglobin 15.9, sodium 127, potassium 5.4, creatinine 1.4, lactic acid 3.3, troponin 0.017, proBNP 4600. Patient currently intubated and sedated and history is supplied by family. Patient has not had any cardiac history, no prior history of congestive heart failure CAD or valvular disease. He has not been having any recent complaints of chest pain. They do not believe he has had any recent cardiac workup. They have however been noticing some mild increase in lower extremity edema. Patient was taken for exploratory laparotomy with lysis of adhesions and washout however no source of active perforation. Suspicion of possible abscess with healed perforation. Has been receiving IV fluids and has had 1-2+ lower extremity edema however lower extremities wrapped with Rg wrap and currently only 1+ lower extremity edema at the thigh. EKG shows sinus rhythm, normal axis, nonspecific minimal T-wave inversions. 09/10 Patient seen and examined. Remains intubated with FiO2 60%, PEEP of 5. Remains in sinus rhythm on exam. Creatinine 0.6, potassium 2.8, hemoglobin 11.3. Receiving IV fluids 125 mL per hour. Echocardiogram performed showing ejection fraction 55% without significant valvular disease with RVSP of 37. PHYSICAL EXAMINATION Vital signs reviewed. CONSTITUTIONAL: No apparent distress, cachectic, ill appearing, intubated HEENT: Head is normocephalic. Pupils are equal, round. Sclerae anicteric. Mucous membranes of the mouth are moist. No JVD. No carotid bruit. CHEST EXAMINATION: Lungs decreased breath sounds bilaterally HEART EXAMINATION: Regular rate and rhythm. S1, S2 heard. No murmurs, gallops or rub. ABDOMEN: Soft, nontender. EXTREMITIES: 1+ lower extremity edema and no calf tenderness. NEUROLOGIC EXAMINATION: Patient is sedated. ASSESSMENT 1. Chronic heart failure, unclear diastolic versus systolic 2. Pneumoperitoneum, status post exploratory laparotomy with no active source of perforation. Possible perforation with healed abscess 3. Septic shock on low-dose vasopressors 4. Squamous cell cancer receiving radiation and chemotherapy 5. Acute on chronic respiratory failure, currently ventilator dependent 6. Mild acute kidney injury PLAN Patient's main presentation related to no peritoneum and sepsis. Elevated proBNP of unclear significance. Likely some component of chronic heart failure however currently septic and has received fluid bolus for sepsis. Lower extremity edema but likely third spacing from sepsis. Additionally cachectic with likely some component of protein calorie malnutrition. Echocardiogram not showing any significant cardiomyopathy or valvular disease. Continue with IV fluids and monitor for any volume overload. Currently appears to be recovering from sepsis and continue pressors as needed. No further recommendations from cardiology standpoint, please call with questions. Objective - Vital Signs Vital signs: Vital Signs Temp 98.4 F 09/10/23 12:00 Pulse 90 09/10/23 12:00 Resp 24 09/10/23 12:00 BP 100/61 09/10/23 11:15 Pulse Ox 98 09/10/23 12:00 FiO2 60 09/10/23 12:00 Intake & Output 09/09/23 09/10/23 09/10/23 18:59 06:59 18:59 Intake Total 2847.442 2482.608 1017.210 Output Total 1255 1320 860 Balance 0853.633 9060.608 157.210 Weight 56.3 kg 60.3 kg Intake: IV 2733 2264 940 Piperacillin-Tazobactam 3 100 200 .375 gm In Sodium Chloride 0.9% 100 ml @ 25 mls/hr IVPB Q8H [facility] Rx#: [id number] Potassium Chloride 20 meq 200 200 In Water For Injection 1 100ml.bag @ 50 mls/hr IVPB Q2H [facility] Rx#: [id number] Pressure Bag 33 39 15 Sodium Chloride 0.9% 1, 1500 1625 625 000 ml @ 125 mls/hr IV . Q8H [facility] Rx#:[id number] Sodium Chloride 0.9% 1, 1000 000 ml @ 999 mls/hr IV . Q1H1M [facility] Rx#:[id number] metroNIDAZOLE-NS PMX 500 100 200 100 mg In Saline 1 100ml.bag @ 100 mls/hr IVPB Q8H [facility] Rx#:[id number] Intake, IV Titration 114.442 218.608 77.210 Amount Norepinephrine 8 mg In 18.465 128.297 47.226 Sodium Chloride 0.9% 250 ml @ 0.03 MCG/KG/MIN 3. 268 mls/hr IV .Q24H [facility] Rx#:[id number] propofoL 1,000 mg In 95.977 90.311 29.984 Empty Bag 1 bag @ 15 MCG/ KG/MIN 4.613 mls/hr IV . [id number] [facility] Rx#:[id number] Output: Gastric Drainage 260 55 440 Drainage 400 500 60 Abdomen 400 500 60 Urine 595 765 360 Other: Voiding Method Indwelling Catheter Indwelling Catheter ABP, PAP, CO, CI - Last Documented Arterial Blood Pressure 99/41 - Labs CBC & Chem 7: 09/10/23 03:30 09/10/23 03:30 Labs: Abnormal Lab Results - Last 24 Hours (Table) 09/10/23 09/10/23 09/10/23 Range/Units 03:30 03:30 04:41 RBC 3.57 L (4.30-5.90) m/uL Hgb 11.3 L (13.0-17.5) gm/dL Hct 35.1 L (39.0-53.0) % RDW 16.6 H (11.5-15.5) % Neutrophils # 8.9 H (1.3-7.7) k/uL Lymphocytes # 0.3 L (1.0-4.8) k/uL ABG pO2 139 H (83-108) mmHg ABG O2 Saturation 97.8 H (94-97) % Sodium 136 L (137-145) mmol/L Potassium 2.8 L (3.5-5.1) mmol/L Carbon Dioxide 18 L (22-30) mmol/L Calcium 7.0 L (8.4-10.2) mg/dL Microbiology - Last 24 Hours (Table) 09/08/23 16:05 Wound Culture - Preliminary Abdomen Gram Neg Bacilli Gram Neg Bacilli#2 09/08/23 10:20 Blood Culture - Preliminary Blood 09/08/23 10:10 Blood Culture - Preliminary Blood
[2023-09-10] MEDS: NOREPINEPHRINE 8 MG in SODIUM CHLORIDE 0.9% 250 ML IV SCH (16:13)
[2023-09-10 19:11] LABS: Glucose,Whole Blood 76 mg/dL (70-110)
[2023-09-10 21:12] LABS: Glucose,Whole Blood 75 mg/dL (70-110)
[2023-09-10 23:06] LABS: Glucose,Whole Blood 83 mg/dL (70-110)
[2023-09-11] MEDS: POTASSIUM CHLORIDE 10 MEQ in WATER FOR INJECTION 1 100ML.BAG IVPB SCH ×2 (00:31→01:32)
[2023-09-11] MEDS: HEPARIN SODIUM,PORCINE 5,000 UNIT/ML 1 ML VIAL SQ SCH ×4 (00:32→23:37)
[2023-09-11] MEDS ORDERED: POTASSIUM CHLORIDE 20 MEQ in WATER FOR INJECTION 1 100ML.BAG IVPB ONE ×2 (02:00→06:45)
[2023-09-11] MEDS: SODIUM CHLORIDE 0.9% 1,000 ML IV SCH ×2 (02:28→08:15)
[2023-09-11] MEDS: metroNIDAZOLE-NS PMX 500 MG in SALINE 1 100ML.BAG IVPB SCH ×3 (03:37→20:18)
[2023-09-11] MEDS: PIPERACILLIN-TAZOBACTAM 3.375 GM in SODIUM CHLORIDE 0.9% 100 ML IVPB SCH ×3 (03:37→20:18)
[2023-09-11] MEDS: NOREPINEPHRINE 8 MG in SODIUM CHLORIDE 0.9% 250 ML IV SCH ×2 (03:45→12:30)
[2023-09-11 06:05] LABS: Glucose,Whole Blood 81 mg/dL (70-110)
[2023-09-11 06:15] LABS: Anisocytosis Slight; Basophils % (A) 0 %; Eosinophils % (A) 0 %; HCT 36.5 % (39.0-53.0); HGB 11.6 gm/dL (13.0-17.5); Lymphocytes # (A) 0.3 k/uL (1.0-4.8); Lymphocytes % (A) 2 %; MCH 31.2 pg (25.0-35.0); MCHC 31.8 g/dL (31.0-37.0); MCV 97.9 fL (80.0-100.0); Macrocytosis Slight; Mean Platelet Volume 8.9; Monocytes # (A) 0.6 k/uL (0-1.0); Monocytes % (A) 3 %; Neutrophils # (A) 15.8 k/uL (1.3-7.7); Neutrophils % (A) 94 %; Platelet Count 207 k/uL (150-450); RBC 3.73 m/uL (4.30-5.90); WBC 16.8 k/uL (3.8-10.6)
[2023-09-11 06:16] LABS: ABG Base Excess -2.8 mmol/L; ABG HCO3 23 mmol/L (21-25); ABG Oxygen Saturation 97.5 % (94-97); ABG PCO2 41 mmHg (35-45); ABG PH 7.36 (7.35-7.45); ABG PO2 104 mmHg (83-108); ABG TCO2 24 mmol/L (19-24)
[2023-09-11 06:29] LABS: African American GFR (CKD) >90 (>60 ml/min/1.73 sqM); Anion Gap 8 mmol/L; Blood Urea Nitrogen 9 mg/dL (9-20); Calcium 7.2 mg/dL (8.4-10.2); Carbon Dioxide 21 mmol/L (22-30); Chloride 111 mmol/L (98-107); Glucose 78 mg/dL (74-99); Non-African American GFR(CKD) >90 (>60 ml/min/1.73 sqM); Potassium 3.7 mmol/L (3.5-5.1); Sodium 140 mmol/L (137-145)
[2023-09-11] MEDS ORDERED: Potassium Replacement Protocol 1 EACH MISC MISCELLANE PRN (06:45)
--- NOTE | 2023-09-11 08:07 | XR ---
EXAMINATION TYPE: XR chest 1V portable DATE OF EXAM: 09/11/2023 COMPARISON: 09/10/2023 INDICATION: Tube placement TECHNIQUE: Single frontal view of the chest is obtained. Patient is rotated to the left. FINDINGS: The heart size is normal. The pulmonary vasculature is normal. There is diffuse infiltrate through the left lung greater in the left lung base. Findings are worseni ng over the interval. Mild infiltrate remains the right lung base Endotracheal tube tip is above the neisha. Nasogastric tube transverses the thorax tip in left upper quadrant of the abdomen. Right central venous catheter tip is in the region of the superior vena cava . IMPRESSION: 1. Worsening left lower lobe infiltrate. 2. Minimal stable right lower lobe infiltrate. 3. Lines and catheters discussed above.
[2023-09-11] MEDS: PANTOPRAZOLE 40 MG/10 ML VIAL IVP SCH ×2 (08:14→20:13)
[2023-09-11] MEDS: CHLORHEXIDINE GLUCONATE 15 ML CUP MUCOUS MEM SCH (08:15)
[2023-09-11] MEDS ORDERED: DEXTROSE 5% IN WATER 100 ML with AMIODARONE 150 MG IV ONE (11:33)
--- NOTE | 2023-09-11 11:44 | P.PN ---
Subjective Progress Note Date: 09/11/23 Principal diagnosis: Respiratory failure. 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 He received 1 week of radiation therapy and is currently receiving chemotherapy. He presented to the emergency room earlier today with complaints of abdominal pain for the past 1-2 weeks. Chest x-ray revealed free air under the diaphragm. Computed tomography scan of the chest abdomen pelvis revealed moderate to large free intraperitoneal air. Exact source is unclear. There are numerous small foci of air within the pelvis which could represent small bowel or sigmoid colonic pneumatosis and possible site of hollow viscus perforation. There is reactive mild to moderate abdominopelvic ascites. There is bibasilar consolidation left greater than right. There is an internal area of 6.3 cm fluid. Possibly related to known lung cancer. Consider necrotic t umor versus pulmonary abscess.. Evidence of destruction of the overlying left posterior ninth and 10th ribs. Moderate to severe COPD. Count 16.0. Hemoglobin 15.9. Platelets 541. Sodium 127. Potassium 5.4. Bicarb 23. BUN 35. Creatinine 1.43. Lactic acid 3.3. ProBNP 4600. Viral screen negative. He will be taken urgently to the operating room. He most likely will require prolonged mechanical ventilation postoperatively and we're consulted for the same. He is seen in the preoperative area. He is quite cachectic. BMI of 16.2 kg/m. He is awake and alert. He does have abdominal discomfort. He denies any worsening shortness of breath, cough or congestion. He is maintaining O2 saturations in the 90s on 2 L/m per nasal cannula. At one point he was 85% saturations on room air. He has an albuterol HFA that he uses at home. He is not oxygen dependent. Family is at the bedside. Patient was reevaluated today on 09/09/2023, patient underwent exploratory laparotomy yesterday he was found to have pneumoperitoneum with abdominal abscess and peritonitis, could not find any specific site for perforation, patient had drainage of abdominal abscess with lysis of adhesions. Pos toperatively patient was sent to the ICU on mechanical ventilation. And I was notified about this patient last night and manage his ventilator settings overnight and hemodynamic status is marginal. Patient is now on assist control rate of 20 to tell volume 400 FiO2 45% and PEEP of 5. ABG on 65% FiO2 showed a pO2 of 245 pCO2 39 pH of 7.39. Blood pressure is soft, hence I recommended more fluid boluses to be given, and use norepinephrine if necessary. Patient received at least 2 L of fluid boluses yesterday. Urine output is marginal at 35 mL per hour. He is on Flagyl and Zosyn. Patient is also on propofol at 25 mcg/kg/m IV fluid is at 1 25 mL per hour in the form of 0.9 normal saline. Chest x-ray showed multifocal airspace opacities especially in the left lung, and these are chronic related to his recent lung cancer. Doubt acute infectious process, nonetheless the patient is covered with antibiotics for his abdominal sepsis. Sitting the patient is yet to fully hemodynamically stable, I would not address weaning and extubation today. But I will cut down his propofol and at l east try to assess his mental status. And this will be done on a daily basis. CODE STATUS was changed yesterday after surgery from full code to DO NOT RESUSCITATE CODE STATUS. ABG today as noted above to 45/39/7.33 WBC count is 11.9 hemoglobin 11.9, sodium 133 potassium 4.0 BUN is 25 creatinine 1.23 Reevaluated today on 09/10/23, patient remains in the ICU, intubated and mechanically ventilated. Patient is on assist control rate of 22 tidal volume 400 FiO2 45% and PEEP of 5 ABG showed a pO2 of 139 pCO2 39 pH of 7.36, hence cut down his FiO2 from 45% to 40%. Patient is still hemodynamically unstable requiring norepinephrine at 0.07 mcg/kg/m his IV fluids remains at 1 25 mL per hour using 0.9 normal saline, propofol is at 15 mcg/kg/m. Patient remains on Zosyn and Flagyl he has good urine output, and his labs were all reviewed. WBC count is 9.5 hemoglobin is 11.3. Platelets are 257 basic metabolic profile showed low potassium of 2.8 being addressed accordingly. Renal profile is normal bicarb is 18. Chest x-ray continues to show persistentopacities and pulmonary vascular congestion throughout the lungs more so in the left lower lobe related to his recently diagnosed and treated congenic carcinoma underlying pneumonia is a possibility, but felt to be less likely, nonetheless patient remains on antibiotics including Zosyn and Flagyl. Progress note dated 09/11/2023. 68-year-old male seen in the intensive care unit, room 265. The patient was admitted to the hospital on September 08, it was discovered to have a pneumoperitoneum. Currently, the patient is in the intensive care unit, in room 265, and remains on mechanical ventilation. He went to the operating room on September 08, the day of admission, with a exploratory laparotomy, lysis of adhesions, and drainage of an abscess. Current ventilator settings include the volume assist control, rate 22, tidal volume 400, FiO2 50%, and a PEEP of 5. Blood gases show pO2 of 104, pCO2 41, pH is 7.36. The patient apparently had a daily interruption of sedation yesterday, and apparently did well with his spontaneous breathing trial. The patient is currently on saline at 50 mL an hour, propofol at 30 mcg/kg/m, and norepinephrine at 15 mcg/m. White count 16.8, hemoglobin 11.6, hematocrit 36.5, and platelet count normal. Sodium 140, potassium 3.7, chlorides 111, CO2 21, BUN 9, creatinine 0.5. Calcium is 7.2. Wound cultures show evidence of Escherichia coli, and Pat. Chest x-ray shows a left lower lobe infiltrate. The patient remains on metronidazole, and Zosyn. Objective - Vital Signs Vital signs: Vital Signs Temp 97.9 F 09/11/23 08:00 Pulse 80 09/11/23 10:30 Resp 20 09/11/23 10:30 BP 101/69 09/11/23 10:30 Pulse Ox 97 09/11/23 10:30 FiO2 40 09/11/23 10:55 Intake & Output 09/10/23 09/11/23 09/11/23 18:59 06:59 18:59 Intake Total 7556.337 0251.828 159 Output Total 1260 910 215 Balance 463.874 182.828 -56 Weight 63.6 kg 63.6 kg Intake: IV 1558 762 159 Piperacillin-Tazobactam 3 100 .375 gm In Sodium Chloride 0.9% 100 ml @ 25 mls/hr IVPB Q8H [facility] Rx#: [id number] Potassium Chloride 20 meq 400 100 In Water For Injection 1 100ml.bag @ 50 mls/hr IVPB Q2H [facility] Rx#: [id number] Pressure Bag 33 12 9 Sodium Chloride 0.9% 1, 925 650 150 000 ml @ 50 mls/hr IV . Q20H [facility] Rx#:[id number] metroNIDAZOLE-NS PMX 500 100 mg In Saline 1 100ml.bag @ 100 mls/hr IVPB Q8H [facility] Rx#:[id number] Intake, IV Titration 165.874 330.828 Amount Norepinephrine 8 mg In 104.727 224.220 Sodium Chloride 0.9% 250 ml @ 0.03 MCG/KG/MIN 3. 268 mls/hr IV .Q24H [facility] Rx#:[id number] propofoL 1,000 mg In 61.147 106.608 Empty Bag 1 bag @ 15 MCG/ KG/MIN 4.613 mls/hr IV . [id number] [facility] Rx#:[id number] Output: Gastric Drainage 440 100 Drainage 140 205 40 Abdomen 140 205 40 Urine 680 605 175 Other: Voiding Method Indwelling Catheter Indwelling Catheter Indwelling Catheter ABP, PAP, CO, CI - Last Documented Arterial Blood Pressure 108/45 - Exam No acute distress, sedated, with an orally placed endotracheal tube and NG tube. HEENT examination is grossly unremarkable. Neck supple. Full range of motion. No adenopathy thyromegaly or neck vein distention. Cardiovascular examination reveals regular rhythm rate. S1-S2 normal. No S3 or S4. No discernible murmur noted. Heart sounds are distant. Heart rate 80 bpm. Lungs reveal scattered bilateral rhonchi. Breath sounds equal. No wheezes or crackles. Saturations are 97%. Abdomen soft without bowel sounds. No masses or tenderness. Extremities are intact. No cyanosis clubbing or edema. Skin is without rash or lesion. Neurologic examination cannot be evaluated at this time. - Labs CBC & Chem 7: 09/11/23 06:00 09/11/23 06:00 Labs: Abnormal Lab Results - Last 24 Hours (Table) 09/11/23 09/11/23 09/11/23 Range/Units 06:00 06:00 06:09 WBC 16.8 H (3.8-10.6) k/uL RBC 3.73 L (4.30-5.90) m/uL Hgb 11.6 L (13.0-17.5) gm/dL Hct 36.5 L (39.0-53.0) % RDW 17.0 H (11.5-15.5) % Neutrophils # 15.8 H (1.3-7.7) k/uL Lymphocytes # 0.3 L (1.0-4.8) k/uL ABG O2 Saturation 97.5 H (94-97) % Chloride 111 H (98-107) mmol/L Carbon Dioxide 21 L (22-30) mmol/L Creatinine 0.50 L (0.66-1.25) mg/dL Calcium 7.2 L (8.4-10.2) mg/dL Microbiology - Last 24 Hours (Table) 09/08/23 10:20 Blood Culture - Preliminary Blood 09/08/23 10:10 Blood Culture - Preliminary Blood 09/08/23 16:05 Gram Stain - Final Abdomen Wound Culture - Final Escherichia coli Escherichia coli#2 Pat albicans Assessment and Plan Assessment: Postop day #3, status post exploratory laparotomy, lysis of adhesions, drainage of abscess, for pneumoperitoneum. Routine postoperative ventilator management. History of lung cancer, poorly differentiated squamous cell carcinoma status post, radiation and chemotherapy. Moderate to severe COPD. Previous history of tobacco use. Severe protein calorie malnutrition. Anorexia/cachexia syndrome of malignancy. Plan: Plan dated 09/11/2023. The patient remains critically ill in the intensive care unit, room 265. The patient apparently did well on his daily interruption of sedation and spontaneous breathing trial yesterday, and they will be repeated today. If the patient has excellent weaning parameters, after 20 or 30 minutes on pressure support of 5 CPAP of 5, and her extubation. The patient apparently is a no code, and is not to be reintubated. We will clarify that with the family prior to extubation. Labs, x-rays, and medications are reviewed. We will continue to follow this patient, and make recommendations along the way. Labs, x-rays, and medications are reviewed. Prognosis is certainly very poor. Time with Patient: Greater than 30
[2023-09-11 12:31] LABS: Glucose,Whole Blood 79 mg/dL (70-110)
--- NOTE | 2023-09-11 12:39 | CDI ---
Documentation Clarification Form Date: 09/11/2023 12:00:23 PM From: Jennifer Ko RN CCDS Phone: [phone] Admit Date: 09/08/2023 01:32:00 PM Patient Name: Joel Todd Visit Number: [id number] Discharge Date: ATTENTION: The Clinical Documentation Specialists (CDI) and [facility] Coding Staff appreciate your assistance in clarifying documentation. Please respond to the clarification below the line at the bottom and electronically sign. The CDI & [facility] Coding staff will review the response and follow-up if needed. Please note: Queries are made part of the Legal Health Record. If you have any questions, please contact the author of this message via ITS. Dr. Leeroy Rooney Sepsis is documented 09/08, ID consult. Based on this information and the findings below, is there an additional diagnosis that is clinically appropriate for this patient? History/Risk Factors: 68-year-old male presents to the ED with vague abdominal pain over the last 1-2 weeks and constipation. Medical history: Left lung cancer with chemotherapy and former smoker. 09/08, H&P Clinical Indicators: WBC, 09/08: 16.0 Lactic acid, 09/08: 3.3 Abdominal culture, 09/08, Escherichia coli, Pat albicans Vitals signs, 09/08: B/P 98/67; HR 87; RR 18; Temp 96.8F Temporal Artery Scan; SpO2 86% room air Procedure postoperative diagnosis, 09/08: Pneumoperitoneum with abdominal abscess and peritonitis. ID consult, 09/08: 1patient to the hospital with sepsis in this with tachycardia hypotension leukocytosis presented with abdominal pain and did have a large free intraperitoneal air concerning for perforation Treatment: 09/08 ICU admission Fluids: 09/08 0.9NS 50cc/hr ID Consult: see above Antibiotics: 09/08 Metronidazole IVPB Q8H; 09/08 Zosyn IVPB Q8H; 09/08 Vancomycin IVPB x 1 IV Bolus: 09/08 0.9NS 500cc bolus x1; 09/08 0.9NS 1L bolus Is there an additional diagnosis that is clinically appropriate for this patient? [ X] Sepsis, present on admission [ ] Sepsis, developed during stay, not present on admission [ ] Other, please specify [ ] Unable to determine SIRS Criteria: 2 or more of the following may indicate SIRS Temperature < 96.8F (36C) or > 101.0F (38.3C) Heart Rate > 90 bpm Respiratory Rate > 20 breaths/min or PaCO2 < 32 mmHg White Blood Cell Count > 12,000 or < 4,000 cells/mm3 or > 10% bands (Template Last Reviewed: September 2022) MTDD
[2023-09-11 13:08] LABS: Ionized Calcium 4.6 mg/dL (4.5-5.3)
[2023-09-11 13:23] LABS: African American GFR (CKD) >90 (>60 ml/min/1.73 sqM); Anion Gap 12 mmol/L; Blood Urea Nitrogen 8 mg/dL (9-20); Calcium 7.3 mg/dL (8.4-10.2); Carbon Dioxide 18 mmol/L (22-30); Chloride 111 mmol/L (98-107); Glucose 79 mg/dL (74-99); Non-African American GFR(CKD) >90 (>60 ml/min/1.73 sqM); Potassium 3.7 mmol/L (3.5-5.1); Sodium 141 mmol/L (137-145)
[2023-09-11 13:32] LABS: Magnesium 1.9 mg/dL (1.6-2.3); Phosphorus 1.8 mg/dL (2.5-4.5)
[2023-09-11] MEDS ORDERED: POTASSIUM CHLORIDE 20 MEQ in WATER FOR INJECTION 1 100ML.BAG IVPB STA (13:45)
[2023-09-11] MEDS ORDERED: METOPROLOL TARTRATE 5 MG/5 ML VIAL IVP PRN (13:59)
--- NOTE | 2023-09-11 14:54 | P.PN ---
Subjective Progress Note Date: 09/11/23 CHIEF COMPLAINT: Pneumoperitoneum HISTORY OF PRESENT ILLNESS: Patient is postop day #3 status post exploratory laparotomy, drainage of abdominal abscess with lysis of adhesions. Patient currently intubated and on mechanical ventilation. Afebrile. WBC 9.5 up to 16.8 Hgb 11.6 fluids 207 sodium is 141 potassium 3.7 creatinine 0.47 PHYSICAL EXAM: VITAL SIGNS: Reviewed. GENERAL: no acute distress. ABDOMEN: Soft. Nondistended. Nontender. Incisional dressing clean dry and intact. HILARIO drain serosanguineous NEUROLOGIC: Intubated ASSESSMENT: 1. Pneumoperitoneum with abdominal abscess and peritonitis PLAN: -Possible extubation today. Keep NG tube. -PICC line ordered for TPN -Consult dietitian for TPN -Continue antibiotics -Continue pain management -DVT prophylaxis subcu heparin and GI prophylaxis Protonix Physician Manager Of Financial Planning note has been reviewed by physician. Signing provider agrees with the documented findings, assessment, and plan of care. I have personally seen and examined the patient, reviewed the SHOP REPAIRER /PAs history, exam and MDM and agree with the assessment and plan as written. Based on total visit time, I have performed more than 50% of the visit. As above: Patient doing well today. Plans are for extubation today. Labs noted. HILARIO is serosanguineous. Mild tenderness on exam. Continue antibiotics. Will follow. Objective - Vital Signs Vital signs: Vital Signs Temp 97.9 F 09/11/23 08:00 Pulse 80 09/11/23 10:30 Resp 20 09/11/23 10:30 BP 101/69 09/11/23 10:30 Pulse Ox 97 09/11/23 10:30 FiO2 40 09/11/23 10:55 Intake & Output 09/10/23 09/11/23 09/11/23 18:59 06:59 18:59 Intake Total 5309.640 6165.828 159 Output Total 1260 910 215 Balance 463.874 182.828 -56 Weight 63.6 kg 63.6 kg Intake: IV 1558 762 159 Piperacillin-Tazobactam 3 100 .375 gm In Sodium Chloride 0.9% 100 ml @ 25 mls/hr IVPB Q8H [facility] Rx#: [id number] Potassium Chloride 20 meq 400 100 In Water For Injection 1 100ml.bag @ 50 mls/hr IVPB Q2H [facility] Rx#: [id number] Pressure Bag 33 12 9 Sodium Chloride 0.9% 1, 925 650 150 000 ml @ 50 mls/hr IV . Q20H [facility] Rx#:[id number] metroNIDAZOLE-NS PMX 500 100 mg In Saline 1 100ml.bag @ 100 mls/hr IVPB Q8H [facility] Rx#:[id number] Intake, IV Titration 165.874 330.828 Amount Norepinephrine 8 mg In 104.727 224.220 Sodium Chloride 0.9% 250 ml @ 0.03 MCG/KG/MIN 3. 268 mls/hr IV .Q24H [facility] Rx#:[id number] propofoL 1,000 mg In 61.147 106.608 Empty Bag 1 bag @ 15 MCG/ KG/MIN 4.613 mls/hr IV . [id number] [facility] Rx#:[id number] Output: Gastric Drainage 440 100 Drainage 140 205 40 Abdomen 140 205 40 Urine 680 605 175 Other: Voiding Method Indwelling Catheter Indwelling Catheter Indwelling Catheter ABP, PAP, CO, CI - Last Documented Arterial Blood Pressure 108/45 - Labs CBC & Chem 7: 09/11/23 06:00 09/11/23 12:48 Labs: Abnormal Lab Results - Last 24 Hours (Table) 09/11/23 09/11/23 09/11/23 Range/Units 06:00 06:00 06:09 WBC 16.8 H (3.8-10.6) k/uL RBC 3.73 L (4.30-5.90) m/uL Hgb 11.6 L (13.0-17.5) gm/dL Hct 36.5 L (39.0-53.0) % RDW 17.0 H (11.5-15.5) % Neutrophils # 15.8 H (1.3-7.7) k/uL Lymphocytes # 0.3 L (1.0-4.8) k/uL ABG O2 Saturation 97.5 H (94-97) % Chloride 111 H (98-107) mmol/L Carbon Dioxide 21 L (22-30) mmol/L Creatinine 0.50 L (0.66-1.25) mg/dL Calcium 7.2 L (8.4-10.2) mg/dL Microbiology - Last 24 Hours (Table) 09/08/23 10:20 Blood Culture - Preliminary Blood 09/08/23 10:10 Blood Culture - Preliminary Blood 09/08/23 16:05 Gram Stain - Final Abdomen Wound Culture - Final Escherichia coli Escherichia coli#2 Pat albicans
[2023-09-11 18:15] LABS: Glucose,Whole Blood 67 mg/dL (70-110)
[2023-09-11 18:22] LABS: Glucose,Whole Blood 89 mg/dL (70-110)
[2023-09-11] MEDS: HYDROmorphone 0.5 MG/0.5 ML SYRINGE IVP PRN ×2 (20:13→23:37)
[2023-09-11] MEDS: ALBUTEROL NEBULIZED 2.5 MG/3 ML INHALATION PRN (20:22)
[2023-09-11 23:43] LABS: Glucose,Whole Blood 94 mg/dL (70-110)
--- NOTE | 2023-09-12 00:17 | XR ---
EXAM: XR Chest, 1 View CLINICAL HISTORY: ITS.REASON XR Reason: Respiratory distress TECHNIQUE: Frontal view of the chest. COMPARISON: 09/11/2023 at 501 FINDINGS: Lungs: Dense consolidation involving the left mid and lower lungs is unchanged. Patchy pulmonary opacities in the right lower lobe are also stable. Pleural space: Unremarkable. No pneumothorax. No pleural effusions. Heart: Unremarkable. No cardiomegaly. Mediastinum: Unremarkable. Normal mediastinal contour. Bones/joints: No acute osseous abnormalities. Tubes, lines and devices: Interval removal of endotracheal tube. Nasogastric tube and right IJ central venous line remain in position. Upper abdomen: Extensive pneumoperitoneum is stable and was report on prior CT of the abdomen and pelvis on 09/08/2023. IMPRESSION: 1. Extensive pneumoperitoneum is stable and was report on prior CT of the abdomen and pelvis on 09/08/2023. 2. Dense consolidation involving the left mid and lower lungs is unchanged. 3. Patchy pulmonary opacities in the right lower lobe are also stable. 4. Interval removal of endotracheal tube.
--- NOTE | 2023-09-12 01:40 | PN ---
PROGRESS NOTE DATE OF SERVICE: 09/11/2023 CHIEF COMPLAINT: Intraabdominal abscess with pneumoperitoneum. HISTORY OF PRESENT ILLNESS: This gentleman remains on the ventilator. Prognosis is still poor. PHYSICAL EXAMINATION: VITAL SIGNS: Blood pressure is 99/60 with a pulse of 108. CHEST: Breath sounds are heard bilaterally. CARDIAC: Demonstrates sinus rhythm. IMPRESSION: 1. Status post drainage of intraabdominal abscess. 2. Carcinoma of the left lung. 3. Sepsis. PLAN: Continue to follow his progress with General Surgery and Intensive Medicine. He is a no code at this time. MMODL / IJN: [id number] /
[2023-09-12] MEDS: NOREPINEPHRINE 8 MG in SODIUM CHLORIDE 0.9% 250 ML IV SCH (03:20)
[2023-09-12 03:49] LABS: Anisocytosis Slight; Basophils % (A) 0 %; Eosinophils % (A) 0 %; HCT 36.8 % (39.0-53.0); HGB 11.6 gm/dL (13.0-17.5); Hypochromasia Slight; Lymphocytes # (A) 0.4 k/uL (1.0-4.8); Lymphocytes % (A) 3 %; MCH 31.1 pg (25.0-35.0); MCHC 31.4 g/dL (31.0-37.0); Macrocytosis Slight; Mean Platelet Volume 8.9; Monocytes # (A) 0.5 k/uL (0-1.0); Monocytes % (A) 3 %; Neutrophils # (A) 14.5 k/uL (1.3-7.7); Neutrophils % (A) 93 %; Platelet Count 202 k/uL (150-450); RBC 3.72 m/uL (4.30-5.90); RDW 16.9 % (11.5-15.5); WBC 15.5 k/uL (3.8-10.6)
[2023-09-12] MEDS: metroNIDAZOLE-NS PMX 500 MG in SALINE 1 100ML.BAG IVPB SCH ×3 (03:51→20:52)
[2023-09-12] MEDS: PIPERACILLIN-TAZOBACTAM 3.375 GM in SODIUM CHLORIDE 0.9% 100 ML IVPB SCH ×3 (03:52→20:51)
[2023-09-12 04:03] LABS: African American GFR (CKD) >90 (>60 ml/min/1.73 sqM); Anion Gap 11 mmol/L; Blood Urea Nitrogen 9 mg/dL (9-20); Calcium 7.5 mg/dL (8.4-10.2); Carbon Dioxide 19 mmol/L (22-30); Chloride 112 mmol/L (98-107); Glucose 88 mg/dL (74-99); Non-African American GFR(CKD) >90 (>60 ml/min/1.73 sqM); Phosphorus 1.9 mg/dL (2.5-4.5); Potassium 3.5 mmol/L (3.5-5.1); Sodium 142 mmol/L (137-145)
[2023-09-12] MEDS: SODIUM CHLORIDE 0.9% 1,000 ML IV SCH (04:11)
[2023-09-12] MEDS: POTASSIUM CHLORIDE 20 MEQ in WATER FOR INJECTION 1 100ML.BAG IVPB SCH ×2 (05:03→07:10)
--- NOTE | 2023-09-12 05:20 | CONS ---
CONSULTATION CHIEF COMPLAINT: Acute abdomen. HISTORY OF PRESENT ILLNESS: This is a 68-year-old male, who was recently diagnosed as having lung cancer in the left lower lobe, presented to the emergency room with acute abdominal pain, where he was found to have and taken to the operating room, where an abscess was found and drained. The source of the abscess was not immediately available. He is postop now in the ventilator. PHYSICAL EXAMINATION: HEAD, EYES AND EARS: Normal. CHEST: Breath sounds are heard bilaterally and they are somewhat diminished on the left side. CARDIAC: Normal. ABDOMEN: . IMPRESSION: 1. Intraabdominal abscess, source unknown. 2. Pneumoperitoneum. 3. Carcinoma of the lung. PLAN: Follow along with Surgery and Intensive Medicine while he is in the intensive care unit and manage any medical problems that should arise that I can help with. MMVALENTE / KELBYN: [id number] /
--- NOTE | 2023-09-12 05:25 | PN ---
PROGRESS NOTE DATE OF SERVICE: 09/10/2023 CHIEF COMPLAINT: Intraabdominal abscess and sepsis. HISTORY OF PRESENT ILLNESS: This gentleman is about the same. He remains hypotensive. He is on the ventilator. PHYSICAL EXAMINATION: CHEST: Clear. CARDIAC: Normal. DRESSING: Dry. IMPRESSION: 1. Status post laparotomy for intraabdominal abscess. 2. Carcinoma of the lung. PLAN: Continue with ICU care and respiratory support. MMODL / IJN: [id number] /
--- NOTE | 2023-09-12 05:34 | PN ---
PROGRESS NOTE DATE OF SERVICE: 09/09/2023 CHIEF COMPLAINT: Sepsis with intraabdominal abscess. HISTORY OF PRESENT ILLNESS: This gentleman remains on the ventilator. His blood pressure is low. PHYSICAL EXAMINATION: CHEST: Clear on the ventilator. CARDIAC: Sinus. IMPRESSION: 1. Intraabdominal abscess with sepsis. 2. CA of the lung. 3. COPD. PLAN: Continue with supportive ICU care with hopes that he may be able to respond. He has been made a DNR. MMMTL / KELBYN: [id number] /
[2023-09-12 05:44] LABS: Glucose,Whole Blood 82 mg/dL (70-110)
[2023-09-12 06:06] LABS: Glucose,Whole Blood 86 mg/dL (70-110)
[2023-09-12] MEDS: HEPARIN SODIUM,PORCINE 5,000 UNIT/ML 1 ML VIAL SQ SCH ×3 (09:19→23:09)
[2023-09-12] MEDS: PANTOPRAZOLE 40 MG/10 ML VIAL IVP SCH ×2 (09:19→20:51)
[2023-09-12] MEDS: ALBUTEROL NEBULIZED 2.5 MG/3 ML INHALATION PRN ×3 (09:34→20:42)
[2023-09-12 10:36] LABS: Phosphorus 1.6 mg/dL (2.5-4.5)
--- NOTE | 2023-09-12 10:54 | P.PN ---
Subjective Progress Note Date: 09/12/23 CHIEF COMPLAINT: Pneumoperitoneum HISTORY OF PRESENT ILLNESS: Patient is postop day #4 status post exploratory laparotomy, drainage of abdominal abscess with lysis of adhesions. Patient was extubated yesterday. He is currently on BiPAP. He remains in the ICU. He reports his pain is controlled. Denies any nausea. Afebrile. WBC 16.8 Hgb 11.6 platelets 202 sodium 142 potassium 4.0 creatinine 0.45 magnesium 2.0 PHYSICAL EXAM: VITAL SIGNS: Reviewed. GENERAL: no acute distress. ABDOMEN: Soft. Nondistended. Tenderness at incision site. Incisional dressing clean dry and intact. HILARIO drain serosanguineous NEUROLOGIC: awake ASSESSMENT: 1. Pneumoperitoneum with abdominal abscess and peritonitis PLAN: -Patient scheduled for PICC line placement and to start TPN today -Consult dietitian for TPN -Continue antibiotics -Continue pain management -DVT prophylaxis subcu heparin and GI prophylaxis Protonix Physician Hospice Aide note has been reviewed by physician. Signing provider agrees with the documented findings, assessment, and plan of care. I have personally seen and examined the patient, reviewed the SUSTAINABLE LANDSCAPE ARCHITECT /PAs history, exam and MDM and agree with the assessment and plan as written. Based on total visit time, I have performed more than 50% of the visit. As above: Patient was activated yesterday. He is having some abdominal pain although says it is better than when he came to the hospital. HILARIO drain is serosanguineous. Dressing is clean and dry. Mild tenderness. Continue antibiotics. Continue optimization of pulmonary status. Objective - Vital Signs Vital signs: Vital Signs Temp 97.6 F 09/12/23 04:00 Pulse 87 09/12/23 09:44 Resp 25 H 09/12/23 07:00 BP 106/84 09/11/23 18:00 Pulse Ox 98 09/12/23 09:35 FiO2 85 09/12/23 09:35 Intake & Output 09/11/23 09/12/23 09/12/23 18:59 06:59 18:59 Intake Total 6212.441 6545.337 Output Total 835 749 Balance 366.725 527.337 Weight 63.6 kg 63.8 kg Intake: IV 833 1033 Piperacillin-Tazobactam 3 100 200 .375 gm In Sodium Chloride 0.9% 100 ml @ 25 mls/hr IVPB Q8H [facility] Rx#: [id number] Pressure Bag 33 33 Sodium Chloride 0.9% 1, 600 600 000 ml @ 50 mls/hr IV . Q20H [facility] Rx#:[id number] metroNIDAZOLE-NS PMX 500 100 200 mg In Saline 1 100ml.bag @ 100 mls/hr IVPB Q8H [facility] Rx#:[id number] Intake, IV Titration 368.725 243.337 Amount Norepinephrine 8 mg In 292.891 243.337 Sodium Chloride 0.9% 250 ml @ 0.03 MCG/KG/MIN 3. 268 mls/hr IV .Q24H [facility] Rx#:[id number] propofoL 1,000 mg In 75.834 Empty Bag 1 bag @ 15 MCG/ KG/MIN 4.613 mls/hr IV . [id number] [facility] Rx#:[id number] Output: Drainage 200 210 Abdomen 200 210 Urine 635 539 Other: Voiding Method Indwelling Catheter Indwelling Catheter # Bowel Movements 1 ABP, PAP, CO, CI - Last Documented Arterial Blood Pressure 102/48 - Labs CBC & Chem 7: 09/12/23 03:35 09/12/23 10:04 Labs: Abnormal Lab Results - Last 24 Hours (Table) 09/11/23 09/11/23 09/11/23 Range/Units 12:48 12:48 18:13 WBC (3.8-10.6) k/uL RBC (4.30-5.90) m/uL Hgb (13.0-17.5) gm/dL Hct (39.0-53.0) % RDW (11.5-15.5) % Neutrophils # (1.3-7.7) k/uL Lymphocytes # (1.0-4.8) k/uL Chloride 111 H (98-107) mmol/L Carbon Dioxide 18 L (22-30) mmol/L BUN 8 L (9-20) mg/dL Creatinine 0.47 L (0.66-1.25) mg/dL POC Glucose (mg/dL) 67 L (70-110) mg/dL Calcium 7.3 L (8.4-10.2) mg/dL Phosphorus 1.8 L (2.5-4.5) mg/dL 12/19/23 12/19/23 Range/Units 03:35 03:35 WBC 15.5 H (3.8-10.6) k/uL RBC 3.72 L (4.30-5.90) m/uL Hgb 11.6 L (13.0-17.5) gm/dL Hct 36.8 L (39.0-53.0) % RDW 16.9 H (11.5-15.5) % Neutrophils # 14.5 H (1.3-7.7) k/uL Lymphocytes # 0.4 L (1.0-4.8) k/uL Chloride 112 H (98-107) mmol/L Carbon Dioxide 19 L (22-30) mmol/L BUN (9-20) mg/dL Creatinine 0.45 L (0.66-1.25) mg/dL POC Glucose (mg/dL) (70-110) mg/dL Calcium 7.5 L (8.4-10.2) mg/dL Phosphorus 1.9 L (2.5-4.5) mg/dL Microbiology - Last 24 Hours (Table) 09/08/23 16:05 Anaerobic Culture - Final Abdomen Anaerobic Gm Negative Bacilli 09/08/23 10:20 Blood Culture - Preliminary Blood 09/08/23 10:10 Blood Culture - Preliminary Blood
[2023-09-12] MEDS ORDERED: SODIUM PHOSPHATE 30 MMOL in DEXTROSE 5% IN WATER 250 ML IVPB ONE ×2 (11:00)
[2023-09-12] MEDS ORDERED: Phosphorus Replacement Protoco 1 EACH MISC MISCELLANE PRN (11:00)
--- NOTE | 2023-09-12 11:14 | P.PN ---
Subjective Progress Note Date: 09/12/23 Principal diagnosis: Respiratory failure. 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 He received 1 week of radiation therapy and is currently receiving chemotherapy. He presented to the emergency room earlier today with complaints of abdominal pain for the past 1-2 weeks. Chest x-ray revealed free air under the diaphragm. Computed tomography scan of the chest abdomen pelvis revealed moderate to large free intraperitoneal air. Exact source is unclear. There are numerous small foci of air within the pelvis which could represent small bowel or sigmoid colonic pneumatosis and possible site of hollow viscus perforation. There is reactive mild to moderate abdominopelvic ascites. There is bibasilar consolidation left greater than right. There is an internal area of 6.3 cm fluid. Possibly related to known lung cancer. Consider necrotic t umor versus pulmonary abscess.. Evidence of destruction of the overlying left posterior ninth and 10th ribs. Moderate to severe COPD. Count 16.0. Hemoglobin 15.9. Platelets 541. Sodium 127. Potassium 5.4. Bicarb 23. BUN 35. Creatinine 1.43. Lactic acid 3.3. ProBNP 4600. Viral screen negative. He will be taken urgently to the operating room. He most likely will require prolonged mechanical ventilation postoperatively and we're consulted for the same. He is seen in the preoperative area. He is quite cachectic. BMI of 16.2 kg/m. He is awake and alert. He does have abdominal discomfort. He denies any worsening shortness of breath, cough or congestion. He is maintaining O2 saturations in the 90s on 2 L/m per nasal cannula. At one point he was 85% saturations on room air. He has an albuterol HFA that he uses at home. He is not oxygen dependent. Family is at the bedside. Patient was reevaluated today on 09/09/2023, patient underwent exploratory laparotomy yesterday he was found to have pneumoperitoneum with abdominal abscess and peritonitis, could not find any specific site for perforation, patient had drainage of abdominal abscess with lysis of adhesions. Pos toperatively patient was sent to the ICU on mechanical ventilation. And I was notified about this patient last night and manage his ventilator settings overnight and hemodynamic status is marginal. Patient is now on assist control rate of 20 to tell volume 400 FiO2 45% and PEEP of 5. ABG on 65% FiO2 showed a pO2 of 245 pCO2 39 pH of 7.39. Blood pressure is soft, hence I recommended more fluid boluses to be given, and use norepinephrine if necessary. Patient received at least 2 L of fluid boluses yesterday. Urine output is marginal at 35 mL per hour. He is on Flagyl and Zosyn. Patient is also on propofol at 25 mcg/kg/m IV fluid is at 1 25 mL per hour in the form of 0.9 normal saline. Chest x-ray showed multifocal airspace opacities especially in the left lung, and these are chronic related to his recent lung cancer. Doubt acute infectious process, nonetheless the patient is covered with antibiotics for his abdominal sepsis. Sitting the patient is yet to fully hemodynamically stable, I would not address weaning and extubation today. But I will cut down his propofol and at l east try to assess his mental status. And this will be done on a daily basis. CODE STATUS was changed yesterday after surgery from full code to DO NOT RESUSCITATE CODE STATUS. ABG today as noted above to 45/39/7.33 WBC count is 11.9 hemoglobin 11.9, sodium 133 potassium 4.0 BUN is 25 creatinine 1.23 Reevaluated today on 09/10/23, patient remains in the ICU, intubated and mechanically ventilated. Patient is on assist control rate of 22 tidal volume 400 FiO2 45% and PEEP of 5 ABG showed a pO2 of 139 pCO2 39 pH of 7.36, hence cut down his FiO2 from 45% to 40%. Patient is still hemodynamically unstable requiring norepinephrine at 0.07 mcg/kg/m his IV fluids remains at 1 25 mL per hour using 0.9 normal saline, propofol is at 15 mcg/kg/m. Patient remains on Zosyn and Flagyl he has good urine output, and his labs were all reviewed. WBC count is 9.5 hemoglobin is 11.3. Platelets are 257 basic metabolic profile showed low potassium of 2.8 being addressed accordingly. Renal profile is normal bicarb is 18. Chest x-ray continues to show persistentopacities and pulmonary vascular congestion throughout the lungs more so in the left lower lobe related to his recently diagnosed and treated congenic carcinoma underlying pneumonia is a possibility, but felt to be less likely, nonetheless patient remains on antibiotics including Zosyn and Flagyl. Progress note dated 09/11/2023. 68-year-old male seen in the intensive care unit, room 265. The patient was admitted to the hospital on September 08, it was discovered to have a pneumoperitoneum. Currently, the patient is in the intensive care unit, in room 265, and remains on mechanical ventilation. He went to the operating room on September 08, the day of admission, with a exploratory laparotomy, lysis of adhesions, and drainage of an abscess. Current ventilator settings include the volume assist control, rate 22, tidal volume 400, FiO2 50%, and a PEEP of 5. Blood gases show pO2 of 104, pCO2 41, pH is 7.36. The patient apparently had a daily interruption of sedation yesterday, and apparently did well with his spontaneous breathing trial. The patient is currently on saline at 50 mL an hour, propofol at 30 mcg/kg/m, and norepinephrine at 15 mcg/m. White count 16.8, hemoglobin 11.6, hematocrit 36.5, and platelet count normal. Sodium 140, potassium 3.7, chlorides 111, CO2 21, BUN 9, creatinine 0.5. Calcium is 7.2. Wound cultures show evidence of Escherichia coli, and Pat. Chest x-ray shows a left lower lobe infiltrate. The patient remains on metronidazole, and Zosyn. Progress note dated 09/12/2023. 68-year-old male seen today in room 265. The patient was extubated yesterday, September 11. Currently, he is on BiPAP, with settings of 12/5, and 90%. The patient is receiving saline at 50 mL an hour, and norepinephrine at 7 mcg/m. The patient is not to be reintubated. This is according to his wishes, and family wishes as well. Currently laboratory includes a white count 15.5, hemoglobin 11.6, hematocrit 36.8, and a platelet count of 202,000. Sodium 142, potassium 3.5, chlorides 112, CO2 19, BUN 9, and creatinine 0.45. Phosphorus is 1.9. Wound cultures of the abdomen were positive for Escherichia coli. There is also some anaerobic gram-negative bacilli noted as well. Chest x-ray shows extensive pneumoperitoneum, dense consolidation involving the left mid and lower lung gorman, and patchy pulmonary opacities in the right lower lobe. Objective - Vital Signs Vital signs: Vital Signs Temp 98.3 F 09/12/23 08:00 Pulse 90 09/12/23 10:00 Resp 20 09/12/23 10:00 BP 106/84 09/11/23 18:00 Pulse Ox 98 09/12/23 10:00 FiO2 85 09/12/23 10:00 Intake & Output 09/11/23 09/12/23 09/12/23 18:59 06:59 18:59 Intake Total 9651.477 3677.337 159 Output Total 835 749 125 Balance 366.725 527.337 34 Weight 63.6 kg 63.8 kg 63.8 kg Intake: IV 833 1033 159 Piperacillin-Tazobactam 3 100 200 .375 gm In Sodium Chloride 0.9% 100 ml @ 25 mls/hr IVPB Q8H [facility] Rx#: [id number] Pressure Bag 33 33 9 Sodium Chloride 0.9% 1, 600 600 150 000 ml @ 50 mls/hr IV . Q20H [facility] Rx#:[id number] metroNIDAZOLE-NS PMX 500 100 200 mg In Saline 1 100ml.bag @ 100 mls/hr IVPB Q8H [facility] Rx#:[id number] Intake, IV Titration 368.725 243.337 Amount Norepinephrine 8 mg In 292.891 243.337 Sodium Chloride 0.9% 250 ml @ 0.03 MCG/KG/MIN 3. 268 mls/hr IV .Q24H [facility] Rx#:[id number] propofoL 1,000 mg In 75.834 Empty Bag 1 bag @ 15 MCG/ KG/MIN 4.613 mls/hr IV . [id number] [facility] Rx#:[id number] Output: Drainage 200 210 Abdomen 200 210 Urine 635 539 125 Other: Voiding Method Indwelling Catheter Indwelling Catheter Indwelling Catheter # Bowel Movements 1 ABP, PAP, CO, CI - Last Documented Arterial Blood Pressure 101/58 - Exam No acute distress, currently on BiPAP. No respiratory distress. HEENT examination is grossly unremarkable. Neck supple. Full range of motion. No adenopathy thyromegaly or neck vein distention. Cardiovascular examination reveals regular rhythm rate. S1-S2 normal. No S3 or S4. No discernible murmur noted. Heart sounds are distant. Heart rate 90 bpm. Lungs reveal scattered bilateral rhonchi. Breath sounds equal. No wheezes or crackles. Saturations are 98 %. Abdomen soft without bowel sounds. No masses or tenderness. Extremities are intact. No cyanosis clubbing or edema. Skin is without rash or lesion. Neurologic examination is brief but nonfocal. - Labs CBC & Chem 7: 09/12/23 03:35 09/12/23 10:04 Labs: Abnormal Lab Results - Last 24 Hours (Table) 09/11/23 09/11/23 09/11/23 Range/Units 12:48 12:48 18:13 WBC (3.8-10.6) k/uL RBC (4.30-5.90) m/uL Hgb (13.0-17.5) gm/dL Hct (39.0-53.0) % RDW (11.5-15.5) % Neutrophils # (1.3-7.7) k/uL Lymphocytes # (1.0-4.8) k/uL Chloride 111 H (98-107) mmol/L Carbon Dioxide 18 L (22-30) mmol/L BUN 8 L (9-20) mg/dL Creatinine 0.47 L (0.66-1.25) mg/dL POC Glucose (mg/dL) 67 L (70-110) mg/dL Calcium 7.3 L (8.4-10.2) mg/dL Phosphorus 1.8 L (2.5-4.5) mg/dL 09/12/23 09/12/23 09/12/23 Range/Units 03:35 03:35 10:04 WBC 15.5 H (3.8-10.6) k/uL RBC 3.72 L (4.30-5.90) m/uL Hgb 11.6 L (13.0-17.5) gm/dL Hct 36.8 L (39.0-53.0) % RDW 16.9 H (11.5-15.5) % Neutrophils # 14.5 H (1.3-7.7) k/uL Lymphocytes # 0.4 L (1.0-4.8) k/uL Chloride 112 H (98-107) mmol/L Carbon Dioxide 19 L (22-30) mmol/L BUN (9-20) mg/dL Creatinine 0.45 L (0.66-1.25) mg/dL POC Glucose (mg/dL) (70-110) mg/dL Calcium 7.5 L (8.4-10.2) mg/dL Phosphorus 1.9 L 1.6 L (2.5-4.5) mg/dL Microbiology - Last 24 Hours (Table) 09/08/23 16:05 Anaerobic Culture - Final Abdomen Anaerobic Gm Negative Bacilli 09/08/23 10:20 Blood Culture - Preliminary Blood 09/08/23 10:10 Blood Culture - Preliminary Blood Assessment and Plan Assessment: Postop day #4, status post exploratory laparotomy, lysis of adhesions, drainage of abscess, for pneumoperitoneum. Routine postoperative ventilator management, S/P extubation on 09/11/2023. History of lung cancer, poorly differentiated squamous cell carcinoma status post, radiation and chemotherapy. Moderate to severe COPD. Previous history of tobacco use. Severe protein calorie malnutrition. Anorexia/cachexia syndrome of malignancy. Plan: Plan dated 09/11/2023. The patient remains critically ill in the intensive care unit, room 265. The patient apparently did well on his daily interruption of sedation and spontaneous breathing trial yesterday, and they will be repeated today. If the patient has excellent weaning parameters, after 20 or 30 minutes on pressure support of 5 CPAP of 5, and her extubation. The patient apparently is a no code, and is not to be reintubated. We will clarify that with the family prior to extubation. Labs, x-rays, and medications are reviewed. We will continue to follow this patient, and make recommendations along the way. Labs, x-rays, and medications are reviewed. Prognosis is certainly very poor. Plan dated 09/12/2023. 68-year-old critically ill patient who was seen in the intensive care unit, room 265. The patient was successfully extubated yesterday, 09/11/2023. By his own wishes, and family wishes, the patient is not to be reintubated. Currently, the patient is on BiPAP, with settings of 12/5, and 90%. The patient remains on saline at 50 mL an hour, and norepinephrine at 7 mcg/m. Labs, x-rays, and medications are reviewed. The patient's overall prognosis remains guarded. We will continue to follow the patient, and make recommendations along the way. Time with Patient: Greater than 30
[2023-09-12 11:33] LABS: Glucose,Whole Blood 72 mg/dL (70-110)
[2023-09-12] MEDS ORDERED: LIDOCAINE 1% INJ 10MG/ML (20 ML MDV) ONE (13:10)
[2023-09-12] MEDS ORDERED: LIDOCAINE 1% INJ 10MG/ML (20 ML MDV) SQ ONE (14:09)
--- NOTE | 2023-09-12 14:31 | XR ---
EXAMINATION TYPE: XR chest 1V portable DATE OF EXAM: 09/12/2023 Comparison: 09/11/2023 Clinical History: 68-year-old male PICC PLACEMENT Findings: Right PICC tip seen to the expected location of the lower right brachiocephalic vein or brachycephali c vein confluence. Right CVC tip at the mid SVC level. Patient is rotated toward the left. Plate and screw fixation proximal left humerus. The lower chest is excluded from view. Suspect the NG tube to b e short at the sidehole is seen at the mid chest level. Interstitial changes persist on the right. rspace opacities throughout the left mid and lower lung may be increasing. Impression: 1. Right PICC tip probably in the brachiocephalic vein confluence region. 2. The NG tube may have been pulled back at the sidehole is visualized at the mid chest level. 3. Normal exam limitations of the lower chest is excluded from view. Confluent airspace disease on th e left may be slightly worsening. Interstitial density on the right may be slightly worsening.
--- NOTE | 2023-09-12 15:11 | IR ---
PICC LINE PLACEMENT: HISTORY: Infection requiring long-term antibiotic therapy PROCEDURE: Ultrasound guidance of PICC line placement. PAINTER CHASSIS: Dr. Abarca. COMPLICATIONS: None ANESTHESIA: 1. 1% Lidocaine locally. FINDINGS/TECHNIQUE: The procedure was explained to the patient. The risks, complications, benefits and alternatives were discussed and any questions were answered. Informed consent was obtained. The patient was placed supine on the fluoroscopic table and prepped and draped in the usual sterile [facility] ion. Utilizing a 21 gauge needle and sonographic guidance, access in the right brachial vein was ac hieved and there is placement of a 0.018 guidewire. The vein is patent. A 5-F. sheath was placed ov er the guidewire. The guidewire and dilator were removed and a 5-F. Double lumen PICC line was place d through the sheath with the chest x-ray confirming the tip at the level of the SVC. The sheath was removed, the catheter was flushed and sutured into position. The patient was stable throughout the procedure and remained stable upon discharge from the Department of Radiology. The vein puncture was patent under ultrasound. A lux scale image was obtained to document patency of the vein punctured. All elements of the maximal barrier technique were utilized. IMPRESSION: 1. Successful PICC line placement under ultrasound performed bedside within the ICU.
[2023-09-12] MEDS ORDERED: MVI, ADULT NO.4 WITH VIT K 10 ML, TRACE (CONC-1ML/DOSE) 1 ML in AMINO ACID 5%-D15W+LYTE... IV SCH ×3 (17:00)
--- NOTE | 2023-09-12 22:33 | P.PN ---
Subjective Progress Note Date: 09/10/23 Principal diagnosis: Reason for follow-up with abdominal sepsis Patient is a 68-year-old male with a past medical history significant for squamous cell carcinoma of the lung diagnosed in April 2023 for the patient has received radiation therapy currently undergoing chemotherapy presenting to the ER for evaluation of abdominal pain patient did have CT abdominal pelvis with evidence of intraperitoneal air patient was taken to the OR status post abdominal washout exact site of perforation could not be determined patient admitted to the ICU after surgery On today's evaluation that is 09/10/2023 the patient remains to be afebrile patient remains to be intubated on the vent FiO2 of 50% no significant purulent secretions through the ET vomiting diarrhea or any other changes reported by the nursing staff. Patient white count normalized to 9.5, creatinine 0.67 Objective - Vital Signs Vital signs: Vital Signs Temp 98.4 F 09/10/23 12:00 Pulse 84 09/10/23 14:15 Resp 23 09/10/23 14:00 BP 102/56 09/10/23 14:15 Pulse Ox 97 09/10/23 14:15 FiO2 50 09/10/23 15:20 Intake & Output 09/09/23 09/10/23 09/10/23 18:59 06:59 18:59 Intake Total 2847.442 2482.608 1278.884 Output Total 1255 1320 1045 Balance 1247.323 2570.608 233.884 Weight 56.3 kg 60.3 kg Intake: IV 2733 2264 1146 Piperacillin-Tazobactam 3 100 200 100 .375 gm In Sodium Chloride 0.9% 100 ml @ 25 mls/hr IVPB Q8H [facility] Rx#: [id number] Potassium Chloride 20 meq 200 200 In Water For Injection 1 100ml.bag @ 50 mls/hr IVPB Q2H [facility] Rx#: [id number] Pressure Bag 33 39 21 Sodium Chloride 0.9% 1, 1500 1625 725 000 ml @ 50 mls/hr IV . Q20H [facility] Rx#:[id number] Sodium Chloride 0.9% 1, 1000 000 ml @ 999 mls/hr IV . Q1H1M [facility] Rx#:[id number] metroNIDAZOLE-NS PMX 500 100 200 100 mg In Saline 1 100ml.bag @ 100 mls/hr IVPB Q8H [facility] Rx#:[id number] Intake, IV Titration 114.442 218.608 132.884 Amount Norepinephrine 8 mg In 18.465 128.297 71.737 Sodium Chloride 0.9% 250 ml @ 0.03 MCG/KG/MIN 3. 268 mls/hr IV .Q24H [facility] Rx#:[id number] propofoL 1,000 mg In 95.977 90.311 61.147 Empty Bag 1 bag @ 15 MCG/ KG/MIN 4.613 mls/hr IV . [id number] [facility] Rx#:[id number] Output: Gastric Drainage 260 55 440 Drainage 400 500 110 Abdomen 400 500 110 Urine 595 765 495 Other: Voiding Method Indwelling Catheter Indwelling Catheter Indwelling Catheter ABP, PAP, CO, CI - Last Documented Arterial Blood Pressure 99/38 - Exam GENERAL DESCRIPTION: Elderly male intubated on the vent RESPIRATORY SYSTEM: Unlabored breathing , decreased breath sounds at bases HEART: S1 S2 regular rate and rhythm ABDOMEN: Slightly tense abdominal incision intact EXTREMITIES: No edema feet - Labs CBC & Chem 7: 09/12/23 03:35 09/12/23 10:04 Labs: Abnormal Lab Results - Last 24 Hours (Table) 09/10/23 09/10/23 09/10/23 Range/Units 03:30 03:30 04:41 RBC 3.57 L (4.30-5.90) m/uL Hgb 11.3 L (13.0-17.5) gm/dL Hct 35.1 L (39.0-53.0) % RDW 16.6 H (11.5-15.5) % Neutrophils # 8.9 H (1.3-7.7) k/uL Lymphocytes # 0.3 L (1.0-4.8) k/uL ABG pO2 139 H (83-108) mmHg ABG O2 Saturation 97.8 H (94-97) % Sodium 136 L (137-145) mmol/L Potassium 2.8 L (3.5-5.1) mmol/L Carbon Dioxide 18 L (22-30) mmol/L Calcium 7.0 L (8.4-10.2) mg/dL Microbiology - Last 24 Hours (Table) 09/08/23 16:05 Wound Culture - Preliminary Abdomen Gram Neg Bacilli Gram Neg Bacilli#2 09/08/23 10:20 Blood Culture - Preliminary Blood 09/08/23 10:10 Blood Culture - Preliminary Blood Assessment and Plan (1) Sepsis Current Visit: Yes Status: Acute Code(s): A41.9 - SEPSIS, UNSPECIFIED ORGANISM SNOMED Code(s): 77305194 (2) Abdominal abscess Current Visit: Yes Status: Acute Code(s): FQF5291 - SNOMED Code(s): 29862421 Plan: 1patient to the hospital with sepsis in this with tachycardia hypotension leukocytosis presented with abdominal pain and did have a large free intraperitoneal air concerning for perforation and needed to cover for the enteric gram Negative both aerobes and anaerobes 2-patient did have renal insufficiency and high risk of nephrotoxicity 3-Patient is status post laparotomy abdominal washout and abdominal cultures are currently pending. 4 - the patient remains to be afebrile patient white count has normalized we will continue patient on Zosyn while waiting for the culture to finalize and monitor clinical course closely Dictation was produced using [employer] dictation software. please excuse any grammatical, word or spelling errors. Time with Patient: Less than 30
--- NOTE | 2023-09-12 22:36 | P.PN ---
Subjective Progress Note Date: 09/11/23 Principal diagnosis: Reason for follow-up with abdominal sepsis Patient is a 68-year-old male with a past medical history significant for squamous cell carcinoma of the lung diagnosed in April 2023 for the patient has received radiation therapy currently undergoing chemotherapy presenting to the ER for evaluation of abdominal pain patient did have CT abdominal pelvis with evidence of intraperitoneal air patient was taken to the OR status post abdominal washout exact site of perforation could not be determined patient admitted to the ICU after surgery On today's evaluation that is 09/11/2023 patient continues to be afebrile, the patient has been extubated this morning patient is slightly lethargic and not a good historian no vomiting diarrhea or any other changes reported by nursing staff patient is currently off of pressor support. Patient white count slightly up to 16.8 today creatinine is 0.47 abdominal culture growing E. coli and anaerobes Objective - Vital Signs Vital signs: Vital Signs Temp 98.1 F 09/11/23 12:00 Pulse 82 09/11/23 13:30 Resp 24 09/11/23 13:30 BP 106/84 09/11/23 12:30 Pulse Ox 73 L 09/11/23 13:00 FiO2 100 09/11/23 13:02 Intake & Output 09/10/23 09/11/23 09/11/23 18:59 06:59 18:59 Intake Total 7830.989 2857.828 839.150 Output Total 1260 910 415 Balance 463.874 182.828 424.150 Weight 63.6 kg 63.6 kg Intake: IV 1558 762 515 Piperacillin-Tazobactam 3 100 100 .375 gm In Sodium Chloride 0.9% 100 ml @ 25 mls/hr IVPB Q8H [facility] Rx#: [id number] Potassium Chloride 20 meq 400 100 In Water For Injection 1 100ml.bag @ 50 mls/hr IVPB Q2H [facility] Rx#: [id number] Pressure Bag 33 12 15 Sodium Chloride 0.9% 1, 925 650 300 000 ml @ 50 mls/hr IV . Q20H [facility] Rx#:[id number] metroNIDAZOLE-NS PMX 500 100 100 mg In Saline 1 100ml.bag @ 100 mls/hr IVPB Q8H [facility] Rx#:[id number] Intake, IV Titration 165.874 330.828 324.150 Amount Norepinephrine 8 mg In 104.727 224.220 248.316 Sodium Chloride 0.9% 250 ml @ 0.03 MCG/KG/MIN 3. 268 mls/hr IV .Q24H [facility] Rx#:[id number] propofoL 1,000 mg In 61.147 106.608 75.834 Empty Bag 1 bag @ 15 MCG/ KG/MIN 4.613 mls/hr IV . [id number] [facility] Rx#:[id number] Output: Gastric Drainage 440 100 Drainage 140 205 100 Abdomen 140 205 100 Urine 680 605 315 Other: Voiding Method Indwelling Catheter Indwelling Catheter Indwelling Catheter ABP, PAP, CO, CI - Last Documented Arterial Blood Pressure 114/58 - Exam GENERAL DESCRIPTION: Elderly male intubated on the vent RESPIRATORY SYSTEM: Unlabored breathing , decreased breath sounds at bases HEART: S1 S2 regular rate and rhythm ABDOMEN: Slightly tense abdominal incision intact EXTREMITIES: No edema feet - Labs CBC & Chem 7: 09/12/23 03:35 09/12/23 10:04 Labs: Abnormal Lab Results - Last 24 Hours (Table) 09/11/23 09/11/23 09/11/23 Range/Units 06:00 06:00 06:09 WBC 16.8 H (3.8-10.6) k/uL RBC 3.73 L (4.30-5.90) m/uL Hgb 11.6 L (13.0-17.5) gm/dL Hct 36.5 L (39.0-53.0) % RDW 17.0 H (11.5-15.5) % Neutrophils # 15.8 H (1.3-7.7) k/uL Lymphocytes # 0.3 L (1.0-4.8) k/uL ABG O2 Saturation 97.5 H (94-97) % Chloride 111 H (98-107) mmol/L Carbon Dioxide 21 L (22-30) mmol/L BUN (9-20) mg/dL Creatinine 0.50 L (0.66-1.25) mg/dL Calcium 7.2 L (8.4-10.2) mg/dL Phosphorus (2.5-4.5) mg/dL 09/11/23 09/11/23 Range/Units 12:48 12:48 WBC (3.8-10.6) k/uL RBC (4.30-5.90) m/uL Hgb (13.0-17.5) gm/dL Hct (39.0-53.0) % RDW (11.5-15.5) % Neutrophils # (1.3-7.7) k/uL Lymphocytes # (1.0-4.8) k/uL ABG O2 Saturation (94-97) % Chloride 111 H (98-107) mmol/L Carbon Dioxide 18 L (22-30) mmol/L BUN 8 L (9-20) mg/dL Creatinine 0.47 L (0.66-1.25) mg/dL Calcium 7.3 L (8.4-10.2) mg/dL Phosphorus 1.8 L (2.5-4.5) mg/dL Microbiology - Last 24 Hours (Table) 09/08/23 10:20 Blood Culture - Preliminary Blood 09/08/23 10:10 Blood Culture - Preliminary Blood 09/08/23 16:05 Gram Stain - Final Abdomen Wound Culture - Final Escherichia coli Escherichia coli#2 Pat albicans Assessment and Plan (1) Sepsis Current Visit: Yes Status: Acute Code(s): A41.9 - SEPSIS, UNSPECIFIED [facility] SNOMED Code(s): 63579825 (2) Abdominal abscess Current Visit: Yes Status: Acute Code(s): XSS0213 - SNOMED Code(s): 20896215 Plan: 1patient to the hospital with sepsis in this with tachycardia hypotension leukocytosis presented with abdominal pain and did have a large free intraperitoneal air concerning for perforation and needed to cover for the enteric gram Negative both aerobes and anaerobes 2-patient did have renal insufficiency and high risk of nephrotoxicity 3-Patient is status post laparotomy abdominal washout and abdominal cultures are currently pending. 4patient remains to be afebrile however noticed to have slight worsening of the white count that need to be monitored closely continue with the Zosyn while waiting for the culture to finalize and monitor his clinical course closely family at the bedside questions were answered Dictation was produced using [employer] dictation software. please excuse any grammatical, word or spelling errors. Time with Patient: Less than 30
--- NOTE | 2023-09-12 22:42 | P.PN ---
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 for the patient has received radiation therapy currently undergoing chemotherapy presenting to the ER for evaluation of abdominal pain patient did have CT abdominal pelvis with evidence of intraperitoneal air patient was taken to the OR status post abdominal washout exact site of perforation could not be determined patient admitted to the ICU after surgery On today's evaluation that is 09/12/2023 the patient remains to be afebrile, the patient is hemodynamically stable patient has slight worsening of his respiratory status requiring BiPAP the patient is more awake and alert and did also have some simple question by shaking his head no vomiting or any other changes reported by the nursing staff. Patient white count is trending down to 15.5 creatinine 0.45 abdominal cultures with E. coli x 2 and anaerobic gram-negative bacilli Objective - Vital Signs Vital signs: Vital Signs Temp 98.3 F 09/12/23 08:00 Pulse 90 09/12/23 10:00 Resp 20 09/12/23 10:00 BP 106/84 09/11/23 18:00 Pulse Ox 98 09/12/23 10:00 FiO2 85 09/12/23 10:00 Intake & Output 09/11/23 09/12/23 09/12/23 18:59 06:59 18:59 Intake Total 0799.553 1434.337 159 Output Total 835 749 125 Balance 366.725 527.337 34 Weight 63.6 kg 63.8 kg 63.8 kg Intake: IV 833 1033 159 Piperacillin-Tazobactam 3 100 200 .375 gm In Sodium Chloride 0.9% 100 ml @ 25 mls/hr IVPB Q8H [facility] Rx#: [id number] Pressure Bag 33 33 9 Sodium Chloride 0.9% 1, 600 600 150 000 ml @ 50 mls/hr IV . Q20H [facility] Rx#:[id number] metroNIDAZOLE-NS PMX 500 100 200 mg In Saline 1 100ml.bag @ 100 mls/hr IVPB Q8H [facility] Rx#:[id number] Intake, IV Titration 368.725 243.337 Amount Norepinephrine 8 mg In 292.891 243.337 Sodium Chloride 0.9% 250 ml @ 0.03 MCG/KG/MIN 3. 268 mls/hr IV .Q24H [facility] Rx#:[id number] propofoL 1,000 mg In 75.834 Empty Bag 1 bag @ 15 MCG/ KG/MIN 4.613 mls/hr IV . [id number] [facility] Rx#:[id number] Output: Drainage 200 210 Abdomen 200 210 Urine 635 539 125 Other: Voiding Method Indwelling Catheter Indwelling Catheter Indwelling Catheter # Bowel Movements 1 ABP, PAP, CO, CI - Last Documented Arterial Blood Pressure 101/58 - Exam GENERAL DESCRIPTION: Elderly male lying in bed in no distress RESPIRATORY SYSTEM: Unlabored breathing , decreased breath sounds at bases HEART: S1 S2 regular rate and rhythm ABDOMEN: soft , no tenderness EXTREMITIES: No edema feet - Labs CBC & Chem 7: 09/12/23 03:35 09/12/23 10:04 Labs: Abnormal Lab Results - Last 24 Hours (Table) 09/11/23 09/11/23 09/11/23 Range/Units 12:48 12:48 18:13 WBC (3.8-10.6) k/uL RBC (4.30-5.90) m/uL Hgb (13.0-17.5) gm/dL Hct (39.0-53.0) % RDW (11.5-15.5) % Neutrophils # (1.3-7.7) k/uL Lymphocytes # (1.0-4.8) k/uL Chloride 111 H (98-107) mmol/L Carbon Dioxide 18 L (22-30) mmol/L BUN 8 L (9-20) mg/dL Creatinine 0.47 L (0.66-1.25) mg/dL POC Glucose (mg/dL) 67 L (70-110) mg/dL Calcium 7.3 L (8.4-10.2) mg/dL Phosphorus 1.8 L (2.5-4.5) mg/dL 09/12/23 09/12/23 09/12/23 Range/Units 03:35 03:35 10:04 WBC 15.5 H (3.8-10.6) k/uL RBC 3.72 L (4.30-5.90) m/uL Hgb 11.6 L (13.0-17.5) gm/dL Hct 36.8 L (39.0-53.0) % RDW 16.9 H (11.5-15.5) % Neutrophils # 14.5 H (1.3-7.7) k/uL Lymphocytes # 0.4 L (1.0-4.8) k/uL Chloride 112 H (98-107) mmol/L Carbon Dioxide 19 L (22-30) mmol/L BUN (9-20) mg/dL Creatinine 0.45 L (0.66-1.25) mg/dL POC Glucose (mg/dL) (70-110) mg/dL Calcium 7.5 L (8.4-10.2) mg/dL Phosphorus 1.9 L 1.6 L (2.5-4.5) mg/dL Microbiology - Last 24 Hours (Table) 09/08/23 16:05 Anaerobic Culture - Final Abdomen Anaerobic Gm Negative Bacilli 09/08/23 10:20 Blood Culture - Preliminary Blood 09/08/23 10:10 Blood Culture - Preliminary Blood Assessment and Plan (1) Sepsis Current Visit: Yes Status: Acute Code(s): A41.9 - SEPSIS, UNSPECIFIED ORGANISM SNOMED Code(s): 04003186 (2) Abdominal abscess Current Visit: Yes Status: Acute Code(s): AZY0449 - SNOMED Code(s): 94410271 Plan: 1patient to the hospital with sepsis in this with tachycardia hypotension leukocytosis presented with abdominal pain and did have a large free intraperitoneal air concerning for perforation and needed to cover for the enteric gram Negative both aerobes and anaerobes 2-patient did have renal insufficiency and high risk of nephrotoxicity 3-Patient is status post laparotomy abdominal washout and abdominal culture currently growing E. coli x 2 one of them is multidrug-resistant along with anaerobes and Pat 4-we will continue patient on Zosyn however we will add Diflucan to cover for the Pat and monitor his clinical course closely Daughter at the bedside questions were answered Dictation was produced using [employer] software. please excuse any grammatical, word or spelling errors. Time with Patient: Less than 30
[2023-09-12] MEDS: FLUCONAZOLE IN NACL,ISO-OSM 200 MG in SALINE 1 100ML.BAG IVPB SCH (23:10)
[2023-09-13] MEDS ORDERED: FUROSEMIDE 10 MG/ML 2 ML VIAL IV ONE
--- NOTE | 2023-09-13 00:55 | PN ---
PROGRESS NOTE DATE OF SERVICE: 09/12/2023 CHIEF COMPLAINT: Intraabdominal abscess with sepsis. HISTORY OF PRESENT ILLNESS: This gentleman is improved. He has been extubated. PHYSICAL EXAMINATION: He is somewhat responsive. Breath sounds are heard bilaterally. He does have sinus tachycardia. IMPRESSION: 1. Status post intraabdominal abscess drainage. 2. Carcinoma of the left lung. 3. Chronic obstructive pulmonary disease. PLAN: Continue to follow while he is in the intensive care unit. MMODL / IJN: [id number] /
[2023-09-13 01:11] LABS: Glucose,Whole Blood 152 mg/dL (70-110)
[2023-09-13] MEDS: PIPERACILLIN-TAZOBACTAM 3.375 GM in SODIUM CHLORIDE 0.9% 100 ML IVPB SCH ×3 (03:58→20:07)
[2023-09-13 04:19] LABS: Anisocytosis Slight; Basophils % (A) 0 %; Eosinophils % (A) 0 %; HCT 35.2 % (39.0-53.0); HGB 11.5 gm/dL (13.0-17.5); Lymphocytes # (A) 0.3 k/uL (1.0-4.8); Lymphocytes % (A) 3 %; MCH 31.9 pg (25.0-35.0); MCHC 32.7 g/dL (31.0-37.0); MCV 97.5 fL (80.0-100.0); Mean Platelet Volume 8.7; Monocytes # (A) 0.6 k/uL (0-1.0); Monocytes % (A) 5 %; Neutrophils # (A) 11.3 k/uL (1.3-7.7); Neutrophils % (A) 91 %; Platelet Count 183 k/uL (150-450); RBC 3.61 m/uL (4.30-5.90); WBC 12.4 k/uL (3.8-10.6)
[2023-09-13 04:44] LABS: African American GFR (CKD) >90 (>60 ml/min/1.73 sqM); Anion Gap 9 mmol/L; Blood Urea Nitrogen 12 mg/dL (9-20); Calcium 7.6 mg/dL (8.4-10.2); Carbon Dioxide 23 mmol/L (22-30); Chloride 114 mmol/L (98-107); Glucose 191 mg/dL (74-99); Magnesium 1.8 mg/dL (1.6-2.3); Non-African American GFR(CKD) >90 (>60 ml/min/1.73 sqM); Phosphorus 1.5 mg/dL (2.5-4.5); Sodium 146 mmol/L (137-145)
[2023-09-13] MEDS ORDERED: Magnesium Replacement Protocol 1 EACH MISC MISCELLANE PRN (04:47)
[2023-09-13] MEDS ORDERED: SODIUM PHOSPHATE 30 MMOL in DEXTROSE 5% IN WATER 250 ML IVPB ONE ×4 (05:00→17:00)
[2023-09-13] MEDS ORDERED: MAGNESIUM SULFATE-D5W PMX 1 GM in DEXTROSE/WATER 1 100ML.BAG IVPB ONE (05:00)
[2023-09-13] MEDS: POTASSIUM CHLORIDE 20 MEQ in WATER FOR INJECTION 1 100ML.BAG IVPB SCH ×5 (05:28→22:05)
[2023-09-13] MEDS: SODIUM CHLORIDE 0.9% 1,000 ML IV SCH (05:35)
[2023-09-13 06:02] LABS: Glucose,Whole Blood 175 mg/dL (70-110)
--- NOTE | 2023-09-13 07:18 | XR ---
EXAMINATION TYPE: XR chest 1V portable DATE OF EXAM: 09/13/2023 5:35 AM CLINICAL INDICATION:Male, 68 years old with history of dyspnea; [facility] COMPARISON: Chest radiographs from TECHNIQUE: XR chest 1V portable Frontal view of the chest. FINDINGS: Lungs/Pleura: Similar multifocal airspace opacities there is blunting of the left costophrenic phreni c angle.. No evidence of pneumothorax or right pleural effusion. Pulmonary vascularity: Pulmonary vascular congestion. Heart/mediastinum: Cardiomediastinal silhouette is partially obscured due to overlying and adjacent o pacities. Musculoskeletal: No acute osseous pathology. Fixation hardware in the proximal left humerus. Other findings: None Lines/Tubes: Endotracheal tube with distal tip 1.2 cm above the neisha. Right internal jugular central venous catheter with distal tip at the cavoatrial junction. Right-sided PICC line with distal tip at the cavoatrial junction. IMPRESSION: 1. Similar multifocal airspace opacities with left pleural effusion.. 2. Stable support lines and tubes.
[2023-09-13] MEDS: FLUCONAZOLE IN NACL,ISO-OSM 200 MG in SALINE 1 100ML.BAG IVPB SCH (08:40)
[2023-09-13] MEDS: PANTOPRAZOLE 40 MG/10 ML VIAL IVP SCH ×2 (08:40→20:07)
[2023-09-13] MEDS: HEPARIN SODIUM,PORCINE 5,000 UNIT/ML 1 ML VIAL SQ SCH ×2 (08:40→16:10)
[2023-09-13] MEDS: ALBUTEROL NEBULIZED 2.5 MG/3 ML INHALATION PRN ×2 (09:01→15:05)
--- NOTE | 2023-09-13 10:36 | P.PN ---
Subjective Progress Note Date: 09/13/23 Principal diagnosis: Respiratory failure. 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 He received 1 week of radiation therapy and is currently receiving chemotherapy. He presented to the emergency room earlier today with complaints of abdominal pain for the past 1-2 weeks. Chest x-ray revealed free air under the diaphragm. Computed tomography scan of the chest abdomen pelvis revealed moderate to large free intraperitoneal air. Exact source is unclear. There are numerous small foci of air within the pelvis which could represent small bowel or sigmoid colonic pneumatosis and possible site of hollow viscus perforation. There is reactive mild to moderate abdominopelvic ascites. There is bibasilar consolidation left greater than right. There is an internal area of 6.3 cm fluid. Possibly related to known lung cancer. Consider necrotic t umor versus pulmonary abscess.. Evidence of destruction of the overlying left posterior ninth and 10th ribs. Moderate to severe COPD. Count 16.0. Hemoglobin 15.9. Platelets 541. Sodium 127. Potassium 5.4. Bicarb 23. BUN 35. Creatinine 1.43. Lactic acid 3.3. ProBNP 4600. Viral screen negative. He will be taken urgently to the operating room. He most likely will require prolonged mechanical ventilation postoperatively and we're consulted for the same. He is seen in the preoperative area. He is quite cachectic. BMI of 16.2 kg/m. He is awake and alert. He does have abdominal discomfort. He denies any worsening shortness of breath, cough or congestion. He is maintaining O2 saturations in the 90s on 2 L/m per nasal cannula. At one point he was 85% saturations on room air. He has an albuterol HFA that he uses at home. He is not oxygen dependent. Family is at the bedside. Patient was reevaluated today on 09/09/2023, patient underwent exploratory laparotomy yesterday he was found to have pneumoperitoneum with abdominal abscess and peritonitis, could not find any specific site for perforation, patient had drainage of abdominal abscess with lysis of adhesions. Pos toperatively patient was sent to the ICU on mechanical ventilation. And I was notified about this patient last night and manage his ventilator settings overnight and hemodynamic status is marginal. Patient is now on assist control rate of 20 to tell volume 400 FiO2 45% and PEEP of 5. ABG on 65% FiO2 showed a pO2 of 245 pCO2 39 pH of 7.39. Blood pressure is soft, hence I recommended more fluid boluses to be given, and use norepinephrine if necessary. Patient received at least 2 L of fluid boluses yesterday. Urine output is marginal at 35 mL per hour. He is on Flagyl and Zosyn. Patient is also on propofol at 25 mcg/kg/m IV fluid is at 1 25 mL per hour in the form of 0.9 normal saline. Chest x-ray showed multifocal airspace opacities especially in the left lung, and these are chronic related to his recent lung cancer. Doubt acute infectious process, nonetheless the patient is covered with antibiotics for his abdominal sepsis. Sitting the patient is yet to fully hemodynamically stable, I would not address weaning and extubation today. But I will cut down his propofol and at l east try to assess his mental status. And this will be done on a daily basis. CODE STATUS was changed yesterday after surgery from full code to DO NOT RESUSCITATE CODE STATUS. ABG today as noted above to 45/39/7.33 WBC count is 11.9 hemoglobin 11.9, sodium 133 potassium 4.0 BUN is 25 creatinine 1.23 Reevaluated today on 09/10/23, patient remains in the ICU, intubated and mechanically ventilated. Patient is on assist control rate of 22 tidal volume 400 FiO2 45% and PEEP of 5 ABG showed a pO2 of 139 pCO2 39 pH of 7.36, hence cut down his FiO2 from 45% to 40%. Patient is still hemodynamically unstable requiring norepinephrine at 0.07 mcg/kg/m his IV fluids remains at 1 25 mL per hour using 0.9 normal saline, propofol is at 15 mcg/kg/m. Patient remains on Zosyn and Flagyl he has good urine output, and his labs were all reviewed. WBC count is 9.5 hemoglobin is 11.3. Platelets are 257 basic metabolic profile showed low potassium of 2.8 being addressed accordingly. Renal profile is normal bicarb is 18. Chest x-ray continues to show persistentopacities and pulmonary vascular congestion throughout the lungs more so in the left lower lobe related to his recently diagnosed and treated congenic carcinoma underlying pneumonia is a possibility, but felt to be less likely, nonetheless patient remains on antibiotics including Zosyn and Flagyl. Progress note dated 09/11/2023. 68-year-old male seen in the intensive care unit, room 265. The patient was admitted to the hospital on September 08, it was discovered to have a pneumoperitoneum. Currently, the patient is in the intensive care unit, in room 265, and remains on mechanical ventilation. He went to the operating room on September 08, the day of admission, with a exploratory laparotomy, lysis of adhesions, and drainage of an abscess. Current ventilator settings include the volume assist control, rate 22, tidal volume 400, FiO2 50%, and a PEEP of 5. Blood gases show pO2 of 104, pCO2 41, pH is 7.36. The patient apparently had a daily interruption of sedation yesterday, and apparently did well with his spontaneous breathing trial. The patient is currently on saline at 50 mL an hour, propofol at 30 mcg/kg/m, and norepinephrine at 15 mcg/m. White count 16.8, hemoglobin 11.6, hematocrit 36.5, and platelet count normal. Sodium 140, potassium 3.7, chlorides 111, CO2 21, BUN 9, creatinine 0.5. Calcium is 7.2. Wound cultures show evidence of Escherichia coli, and Pat. Chest x-ray shows a left lower lobe infiltrate. The patient remains on metronidazole, and Zosyn. Progress note dated 09/12/2023. 68-year-old male seen today in room 265. The patient was extubated yesterday, September 11. Currently, he is on BiPAP, with settings of 12/5, and 90%. The patient is receiving saline at 50 mL an hour, and norepinephrine at 7 mcg/m. The patient is not to be reintubated. This is according to his wishes, and family wishes as well. Currently laboratory includes a white count 15.5, hemoglobin 11.6, hematocrit 36.8, and a platelet count of 202,000. Sodium 142, potassium 3.5, chlorides 112, CO2 19, BUN 9, and creatinine 0.45. Phosphorus is 1.9. Wound cultures of the abdomen were positive for Escherichia coli. There is also some anaerobic gram-negative bacilli noted as well. Chest x-ray shows extensive pneumoperitoneum, dense consolidation involving the left mid and lower lung gorman, and patchy pulmonary opacities in the right lower lobe. Progress note dated 09/13/2023. 68-year-old male seen today in room 265. The patient was extubated, September 11, from mechanical ventilation. He is not to be reintubated. The patient remains on BiPAP, with settings of 12/5, and 75%. He was on AIRVO for a very brief period of time yesterday. The patient's getting saline at 50 mL an hour, and TPN at 30 mL an hour. White count 12.4, hemoglobin 11.5, hematocrit 35.2, and platelet count normal. Sodium 146, potassium 3, chlorides 114, CO2 23, BUN 12, creatinine 0.41. Calcium is 7.6, and phosphorus is 1.5. Glucose 175. Wound cultures were positive for Escherichia coli. Chest x-ray shows bilateral multifocal airspace opacities. The chest x-ray is essentially unchanged. Objective - Vital Signs Vital signs: Vital Signs Temp 98.0 F 09/13/23 08:00 Pulse 92 09/13/23 10:00 Resp 20 09/13/23 10:00 BP 106/84 09/12/23 15:00 Pulse Ox 97 09/13/23 10:00 FiO2 75 09/13/23 09:04 Intake & Output 09/12/23 09/13/23 09/13/23 18:59 06:59 18:59 Intake Total 809.292 4613.218 532 Output Total 480 1370 280 Balance 207.387 456.218 252 Weight 63.8 kg 65.7 kg 65.7 kg Intake: IV 574 1810 442 Fluconazole in NaCl,Iso- 100 100 Osm 200 mg In Saline 1 100ml.bag @ 100 mls/hr IVPB DAILY [facility] Rx#: [id number] Magnesium Sulfate-D5w Pmx 100 1 gm In Dextrose/Water 1 100ml.bag @ 100 mls/hr IVPB ONCE ONE Rx#: [id number] Mvi, Adult No.4 with Vit 330 30 K 10 ml Trace (Conc-1Ml/ Dose) 1 ml In Amino Acid 5%-D15w+Lytes*E* 1,000 ml @ 30 mls/hr IV .Q24H [facility] Rx#:[id number] Piperacillin-Tazobactam 3 200 .375 gm In Sodium Chloride 0.9% 100 ml @ 25 mls/hr IVPB Q8H [facility] Rx#: [id number] Potassium Chloride 20 meq 100 100 In Water For Injection 1 100ml.bag @ 50 mls/hr IVPB Q2H [facility] Rx#: [id number] Pressure Bag 24 30 12 Sodium Chloride 0.9% 1, 550 600 200 000 ml @ 50 mls/hr IV . Q20H [facility] Rx#:[id number] Sodium Phosphate 30 mmol 250 In Dextrose 5% in Water 250 ml @ 65 mls/hr IVPB ONCE ONE Rx#:[id number] metroNIDAZOLE-NS PMX 500 100 mg In Saline 1 100ml.bag @ 100 mls/hr IVPB Q8H [facility] Rx#:[id number] Intake, IV Titration 113.387 13.218 Amount Norepinephrine 8 mg In 113.387 13.218 Sodium Chloride 0.9% 250 ml @ 0.03 MCG/KG/MIN 3. 268 mls/hr IV .Q24H [facility] Rx#:[id number] TPN/PPN 90 Mvi, Adult No.4 with Vit 90 K 10 ml Trace (Conc-1Ml/ Dose) 1 ml In Amino Acid 5%-D15w+Lytes*E* 1,000 ml @ 30 mls/hr IV .Q24H [facility] Rx#:[id number] Lipid 3 Pressure Bag 3 Output: Drainage 100 Abdomen 100 Urine 480 1370 180 Other: Voiding Method Indwelling Catheter Indwelling Catheter # Bowel Movements 1 ABP, PAP, CO, CI - Last Documented Arterial Blood Pressure 106/55 - Exam No acute distress, currently on BiPAP. No respiratory distress. HEENT examination is grossly unremarkable. Neck supple. Full range of motion. No adenopathy thyromegaly or neck vein distention. Cardiovascular examination reveals regular rhythm rate. S1-S2 normal. No S3 or S4. No discernible murmur noted. Heart sounds are distant. Heart rate 92 bpm. Lungs reveal scattered bilateral rhonchi. Breath sounds equal. No wheezes or crackles. Saturations are 97 %. Abdomen soft without bowel sounds. No masses or tenderness. Extremities are intact. No cyanosis clubbing or edema. Skin is without rash or lesion. Neurologic examination is brief but nonfocal. - Labs CBC & Chem 7: 09/13/23 04:05 09/13/23 04:05 Labs: Abnormal Lab Results - Last 24 Hours (Table) 09/12/23 09/13/23 09/13/23 Range/Units 10:04 01:08 04:05 WBC (3.8-10.6) k/uL RBC (4.30-5.90) m/uL Hgb (13.0-17.5) gm/dL Hct (39.0-53.0) % RDW (11.5-15.5) % Neutrophils # (1.3-7.7) k/uL Lymphocytes # (1.0-4.8) k/uL Sodium 146 H (137-145) mmol/L Potassium 3.0 L (3.5-5.1) mmol/L Chloride 114 H (98-107) mmol/L Creatinine 0.41 L (0.66-1.25) mg/dL Glucose 191 H (74-99) mg/dL POC Glucose (mg/dL) 152 H (70-110) mg/dL Calcium 7.6 L (8.4-10.2) mg/dL Phosphorus 1.6 L 1.5 L (2.5-4.5) mg/dL 09/13/23 09/13/23 Range/Units 04:05 06:01 WBC 12.4 H (3.8-10.6) k/uL RBC 3.61 L (4.30-5.90) m/uL Hgb 11.5 L (13.0-17.5) gm/dL Hct 35.2 L (39.0-53.0) % RDW 16.0 H (11.5-15.5) % Neutrophils # 11.3 H (1.3-7.7) k/uL Lymphocytes # 0.3 L (1.0-4.8) k/uL Sodium (137-145) mmol/L Potassium (3.5-5.1) mmol/L Chloride (98-107) mmol/L Creatinine (0.66-1.25) mg/dL Glucose (74-99) mg/dL POC Glucose (mg/dL) 175 H (70-110) mg/dL Calcium (8.4-10.2) mg/dL Phosphorus (2.5-4.5) mg/dL Assessment and Plan Assessment: Postop day #5, status post exploratory laparotomy, lysis of adhesions, drainage of abscess, for pneumoperitoneum. Routine postoperative ventilator management, S/P extubation on 09/11/2023. History of lung cancer, poorly differentiated squamous cell carcinoma status post, radiation and chemotherapy. Moderate to severe COPD. Previous history of tobacco use. Severe protein calorie malnutrition. Anorexia/cachexia syndrome of malignancy. Plan: Plan dated 09/11/2023. The patient remains critically ill in the intensive care unit, room 265. The patient apparently did well on his daily interruption of sedation and spontaneous breathing trial yesterday, and they will be repeated today. If the patient has excellent weaning parameters, after 20 or 30 minutes on pressure support of 5 CPAP of 5, and her extubation. The patient apparently is a no code, and is not to be reintubated. We will clarify that with the family prior to extubation. Labs, x-rays, and medications are reviewed. We will continue to follow this patient, and make recommendations along the way. Labs, x-rays, and medications are reviewed. Prognosis is certainly very poor. Plan dated 09/12/2023. 68-year-old critically ill patient who was seen in the intensive care unit, room 265. The patient was successfully extubated yesterday, 09/11/2023. By his own wishes, and family wishes, the patient is not to be reintubated. Currently, the patient is on BiPAP, with settings of 12/5, and 90%. The patient remains on saline at 50 mL an hour, and norepinephrine at 7 mcg/m. Labs, x-rays, and medications are reviewed. The patient's overall prognosis remains guarded. We will continue to follow the patient, and make recommendations along the way. Plan dated 09/13/2023. 68-year-old male, seen today in room 265. The patient remains critically ill. He continues on BiPAP, and apparently according to respiratory therapy, could not tolerate air well for a long period of time. The patient was started on TPN at 30 mL an hour. He is getting saline at 50 mL an hour. BiPAP settings of 12/5, and 75%. Yesterday, he was on 90%. The patient is a DO NOT RESUSCITATE patient. Hospice consultation in my opinion would be very appropriate. No additional recommendations are made at this time. We will continue to follow the patient, and make recommendations where appropriate. Prognosis is certainly guarded. Time with Patient: Greater than 30
[2023-09-13 11:44] LABS: Glucose,Whole Blood 182 mg/dL (70-110)
--- NOTE | 2023-09-13 13:16 | P.PN ---
Subjective Progress Note Date: 09/13/23 CHIEF COMPLAINT: Pneumoperitoneum HISTORY OF PRESENT ILLNESS: Patient is postop day #5 status post exploratory laparotomy, drainage of abdominal abscess with lysis of adhesions. Patient remains on BiPAP. He had a bowel movement. No nausea reported. He reports his pain is controlled. HILARIO drain 60 mL serosanguineous output Afebrile. WBC 15.5 down to 12.4 Hgb 11.5 platelets 183 sons 146 potassium is 3.0 creatinine 0.41 phosphorus 1.5. Care service has consulted hospice. PHYSICAL EXAM: VITAL SIGNS: Reviewed. GENERAL: no acute distress. ABDOMEN: Soft. Nondistended. Tenderness at incision site. Incisional dressing clean dry and intact. HILARIO drain serosanguineous NEUROLOGIC: awake ASSESSMENT: 1. Pneumoperitoneum with abdominal abscess and peritonitis PLAN: -If BiPAP removed okay to pull NG tube and start clears -Continue TPN for nutrition support -Continue antibiotics -Continue pain management -DVT prophylaxis subcu heparin and GI prophylaxis Protonix Physician Regrinder Operator note has been reviewed by physician. Signing provider agrees with the documented findings, assessment, and plan of care. Objective - Vital Signs Vital signs: Vital Signs Temp 98.7 F 09/13/23 04:00 Pulse 92 09/13/23 09:12 Resp 27 H 09/13/23 07:00 BP 106/84 09/12/23 15:00 Pulse Ox 97 09/13/23 09:04 FiO2 75 09/13/23 09:04 Intake & Output 09/12/23 09/13/23 09/13/23 18:59 06:59 18:59 Intake Total 415.727 9677.218 83 Output Total 480 1370 130 Balance 207.387 456.218 -47 Weight 63.8 kg 65.7 kg 65.7 kg Intake: IV 574 1810 83 Fluconazole in NaCl,Iso- 100 Osm 200 mg In Saline 1 100ml.bag @ 100 mls/hr IVPB DAILY [facility] Rx#: [id number] Magnesium Sulfate-D5w Pmx 100 1 gm In Dextrose/Water 1 100ml.bag @ 100 mls/hr IVPB ONCE ONE Rx#: [id number] Mvi, Adult No.4 with Vit 330 30 K 10 ml Trace (Conc-1Ml/ Dose) 1 ml In Amino Acid 5%-D15w+Lytes*E* 1,000 ml @ 30 mls/hr IV .Q24H [facility] Rx#:[id number] Piperacillin-Tazobactam 3 200 .375 gm In Sodium Chloride 0.9% 100 ml @ 25 mls/hr IVPB Q8H [facility] Rx#: [id number] Potassium Chloride 20 meq 100 In Water For Injection 1 100ml.bag @ 50 mls/hr IVPB Q2H [facility] Rx#: [id number] Pressure Bag 24 30 3 Sodium Chloride 0.9% 1, 550 600 50 000 ml @ 50 mls/hr IV . Q20H [facility] Rx#:[id number] Sodium Phosphate 30 mmol 250 In Dextrose 5% in Water 250 ml @ 65 mls/hr IVPB ONCE ONE Rx#:[id number] metroNIDAZOLE-NS PMX 500 100 mg In Saline 1 100ml.bag @ 100 mls/hr IVPB Q8H [facility] Rx#:[id number] Intake, IV Titration 113.387 13.218 Amount Norepinephrine 8 mg In 113.387 13.218 Sodium Chloride 0.9% 250 ml @ 0.03 MCG/KG/MIN 3. 268 mls/hr IV .Q24H [facility] Rx#:[id number] Lipid 3 Pressure Bag 3 Output: Drainage 60 Abdomen 60 Urine 480 1370 70 Other: Voiding Method Indwelling Catheter Indwelling Catheter # Bowel Movements 1 ABP, PAP, CO, CI - Last Documented Arterial Blood Pressure 106/54 - Labs CBC & Chem 7: 09/13/23 04:05 09/13/23 04:05 Labs: Abnormal Lab Results - Last 24 Hours (Table) 09/12/23 09/13/23 09/13/23 Range/Units 10:04 01:08 04:05 WBC (3.8-10.6) k/uL RBC (4.30-5.90) m/uL Hgb (13.0-17.5) gm/dL Hct (39.0-53.0) % RDW (11.5-15.5) % Neutrophils # (1.3-7.7) k/uL Lymphocytes # (1.0-4.8) k/uL Sodium 146 H (137-145) mmol/L Potassium 3.0 L (3.5-5.1) mmol/L Chloride 114 H (98-107) mmol/L Creatinine 0.41 L (0.66-1.25) mg/dL Glucose 191 H (74-99) mg/dL POC Glucose (mg/dL) 152 H (70-110) mg/dL Calcium 7.6 L (8.4-10.2) mg/dL Phosphorus 1.6 L 1.5 L (2.5-4.5) mg/dL 09/13/23 09/13/23 Range/Units 04:05 06:01 WBC 12.4 H (3.8-10.6) k/uL RBC 3.61 L (4.30-5.90) m/uL Hgb 11.5 L (13.0-17.5) gm/dL Hct 35.2 L (39.0-53.0) % RDW 16.0 H (11.5-15.5) % Neutrophils # 11.3 H (1.3-7.7) k/uL Lymphocytes # 0.3 L (1.0-4.8) k/uL Sodium (137-145) mmol/L Potassium (3.5-5.1) mmol/L Chloride (98-107) mmol/L Creatinine (0.66-1.25) mg/dL Glucose (74-99) mg/dL POC Glucose (mg/dL) 175 H (70-110) mg/dL Calcium (8.4-10.2) mg/dL Phosphorus (2.5-4.5) mg/dL
[2023-09-13 16:41] LABS: African American GFR (CKD) >90 (>60 ml/min/1.73 sqM); Anion Gap 5 mmol/L; Blood Urea Nitrogen 11 mg/dL (9-20); Calcium 7.5 mg/dL (8.4-10.2); Carbon Dioxide 29 mmol/L (22-30); Chloride 113 mmol/L (98-107); Glucose 158 mg/dL (74-99); Magnesium 2.1 mg/dL (1.6-2.3); Non-African American GFR(CKD) >90 (>60 ml/min/1.73 sqM); Phosphorus 1.9 mg/dL (2.5-4.5); Potassium 2.9 mmol/L (3.5-5.1); Sodium 147 mmol/L (137-145)
[2023-09-13] MEDS ORDERED: MVI, ADULT NO.4 WITH VIT K 10 ML, TRACE (CONC-1ML/DOSE) 1 ML in AMINO ACID 5%-D15W+LYTE... IV SCH ×3 (17:00)
[2023-09-14 00:02] LABS: Glucose,Whole Blood 115 mg/dL (70-110)
[2023-09-14] MEDS: HEPARIN SODIUM,PORCINE 5,000 UNIT/ML 1 ML VIAL SQ SCH ×4 (00:36→23:43)
[2023-09-14] MEDS: PIPERACILLIN-TAZOBACTAM 3.375 GM in SODIUM CHLORIDE 0.9% 100 ML IVPB SCH ×3 (04:04→20:34)
[2023-09-14] MEDS: POTASSIUM CHLORIDE 20 MEQ in WATER FOR INJECTION 1 100ML.BAG IVPB SCH ×2 (04:04→06:04)
[2023-09-14 04:49] LABS: Anisocytosis Slight; Basophils % (A) 0 %; Eosinophils % (A) 0 %; HGB 10.5 gm/dL (13.0-17.5); Lymphocytes # (A) 0.3 k/uL (1.0-4.8); Lymphocytes % (A) 3 %; MCH 31.1 pg (25.0-35.0); MCHC 31.9 g/dL (31.0-37.0); MCV 97.4 fL (80.0-100.0); Macrocytosis Slight; Mean Platelet Volume 10.5; Monocytes # (A) 0.7 k/uL (0-1.0); Monocytes % (A) 7 %; Neutrophils # (A) 8.8 k/uL (1.3-7.7); Neutrophils % (A) 88 %; Platelet Count 146 k/uL (150-450); RBC 3.38 m/uL (4.30-5.90); RDW 16.4 % (11.5-15.5); WBC 9.9 k/uL (3.8-10.6)
--- NOTE | 2023-09-14 04:59 | PN ---
PROGRESS NOTE DATE OF SERVICE: 09/13/2023 CHIEF COMPLAINT: Intraabdominal abscess and sepsis. HISTORY OF PRESENT ILLNESS: This gentleman is about the same. He is on BiPAP. His vital signs are still stable. PHYSICAL EXAMINATION: GENERAL: He is pale and cachectic. LUNGS: He has breath sounds bilaterally with occasional rhonchi. CARDIAC: Normal. ABDOMEN: Soft, nontender. IMPRESSION: 1. Intraabdominal abscess with pneumoperitoneum. 2. Sepsis. 3. CA of the lung. 4. COPD. PLAN: I have no recommended changes in his management today. MMODL / IJN: [id number] /
[2023-09-14 05:40] LABS: African American GFR (CKD) >90 (>60 ml/min/1.73 sqM); Anion Gap 7 mmol/L; Blood Urea Nitrogen 11 mg/dL (9-20); Calcium 7.3 mg/dL (8.4-10.2); Carbon Dioxide 26 mmol/L (22-30); Chloride 114 mmol/L (98-107); Glucose 127 mg/dL (74-99); Non-African American GFR(CKD) >90 (>60 ml/min/1.73 sqM); Phosphorus 2.1 mg/dL (2.5-4.5); Potassium 3.3 mmol/L (3.5-5.1); Sodium 147 mmol/L (137-145)
[2023-09-14 06:27] LABS: Glucose,Whole Blood 106 mg/dL (70-110)
[2023-09-14] MEDS ORDERED: SODIUM PHOSPHATE 30 MMOL in DEXTROSE 5% IN WATER 250 ML IVPB ONE ×2 (07:00)
[2023-09-14] MEDS: ALBUTEROL NEBULIZED 2.5 MG/3 ML INHALATION PRN ×4 (08:20→21:00)
--- NOTE | 2023-09-14 08:56 | P.PN ---
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 for the patient has received radiation therapy currently undergoing chemotherapy presenting to the ER for evaluation of abdominal pain patient did have CT abdominal pelvis with evidence of intraperitoneal air patient was taken to the OR status post abdominal washout exact site of perforation could not be determined patient admitted to the ICU after surgery On today's evaluation that is 09/13/2023, the patient continues to be afebrile, the patient is hemodynamically stable and the patient is off pressor support per the nursing staff, the patient is requiring less oxygen remains to be on a BiPAP patient is awake and alert and try to answer some simple question patient is on TPN no other changes reported by the nursing staff. Patient white count is down to 12.4, creatinine 0.38. Objective - Vital Signs Vital signs: Vital Signs Temp 98.4 F 09/13/23 20:00 Pulse 92 09/13/23 22:00 Resp 18 09/13/23 22:00 BP 100/67 09/13/23 14:00 Pulse Ox 97 09/13/23 22:00 FiO2 85 09/13/23 22:00 Intake & Output 09/13/23 09/13/23 09/14/23 06:59 18:59 06:59 Intake Total 0808.674 3579 676 Output Total 1370 635 170 Balance 668.870 8408 506 Weight 65.7 kg 65.7 kg Intake: IV 1810 1316 312 Fluconazole in NaCl,Iso- 100 100 Osm 200 mg In Saline 1 100ml.bag @ 100 mls/hr IVPB DAILY [facility] Rx#: [id number] Magnesium Sulfate-D5w Pmx 100 1 gm In Dextrose/Water 1 100ml.bag @ 100 mls/hr IVPB ONCE ONE Rx#: [id number] Mvi, Adult No.4 with Vit 330 30 K 10 ml Trace (Conc-1Ml/ Dose) 1 ml In Amino Acid 5%-D15w+Lytes*E* 1,000 ml @ 30 mls/hr IV .Q24H [facility] Rx#:[id number] Piperacillin-Tazobactam 3 200 100 100 .375 gm In Sodium Chloride 0.9% 100 ml @ 25 mls/hr IVPB Q8H [facility] Rx#: [id number] Potassium Chloride 20 meq 100 200 In Water For Injection 1 100ml.bag @ 50 mls/hr IVPB Q2H [facility] Rx#: [id number] Pressure Bag 30 36 12 Sodium Chloride 0.9% 1, 600 600 200 000 ml @ 50 mls/hr IV . Q20H [facility] Rx#:[id number] Sodium Phosphate 30 mmol 250 250 In Dextrose 5% in Water 250 ml @ 65 mls/hr IVPB ONCE ONE Rx#:[id number] metroNIDAZOLE-NS PMX 500 100 mg In Saline 1 100ml.bag @ 100 mls/hr IVPB Q8H [facility] Rx#:[id number] Intake, IV Titration 13.218 200 Amount Norepinephrine 8 mg In 13.218 Sodium Chloride 0.9% 250 ml @ 0.03 MCG/KG/MIN 3. 268 mls/hr IV .Q24H [facility] Rx#:[id number] Potassium Chloride 20 meq 200 In Water For Injection 1 100ml.bag @ 50 mls/hr IVPB Q2H [facility] Rx#: [id number] TPN/PPN 352 164 Mvi, Adult No.4 with Vit 270 K 10 ml Trace (Conc-1Ml/ Dose) 1 ml In Amino Acid 5%-D15w+Lytes*E* 1,000 ml @ 30 mls/hr IV .Q24H [facility] Rx#:[id number] Mvi, Adult No.4 with Vit 82 164 K 10 ml Trace (Conc-1Ml/ Dose) 1 ml In Amino Acid 5%-D15w+Lytes*E* 1,000 ml @ 41 mls/hr IV .Q24H [facility] Rx#:[id number] Lipid 3 Pressure Bag 3 Output: Drainage 125 Abdomen 125 Urine 1370 510 170 Other: Voiding Method Indwelling Catheter Indwelling Catheter Indwelling Catheter # Bowel Movements 1 ABP, PAP, CO, CI - Last Documented Arterial Blood Pressure 117/61 - Exam GENERAL DESCRIPTION: Elderly male lying in bed in no distress RESPIRATORY SYSTEM: Unlabored breathing , decreased breath sounds at bases HEART: S1 S2 regular rate and rhythm ABDOMEN: soft , no tenderness EXTREMITIES: No edema feet - Labs CBC & Chem 7: 09/14/23 04:18 09/14/23 04:18 Labs: Abnormal Lab Results - Last 24 Hours (Table) 09/13/23 09/13/23 09/13/23 Range/Units 01:08 04:05 04:05 WBC 12.4 H (3.8-10.6) k/uL RBC 3.61 L (4.30-5.90) m/uL Hgb 11.5 L (13.0-17.5) gm/dL Hct 35.2 L (39.0-53.0) % RDW 16.0 H (11.5-15.5) % Neutrophils # 11.3 H (1.3-7.7) k/uL Lymphocytes # 0.3 L (1.0-4.8) k/uL Sodium 146 H (137-145) mmol/L Potassium 3.0 L (3.5-5.1) mmol/L Chloride 114 H (98-107) mmol/L Creatinine 0.41 L (0.66-1.25) mg/dL Glucose 191 H (74-99) mg/dL POC Glucose (mg/dL) 152 H (70-110) mg/dL Calcium 7.6 L (8.4-10.2) mg/dL Phosphorus 1.5 L (2.5-4.5) mg/dL 09/13/23 09/13/23 09/13/23 Range/Units 06:01 11:32 16:00 WBC (3.8-10.6) k/uL RBC (4.30-5.90) m/uL Hgb (13.0-17.5) gm/dL Hct (39.0-53.0) % RDW (11.5-15.5) % Neutrophils # (1.3-7.7) k/uL Lymphocytes # (1.0-4.8) k/uL Sodium 147 H (137-145) mmol/L Potassium 2.9 L (3.5-5.1) mmol/L Chloride 113 H (98-107) mmol/L Creatinine 0.38 L (0.66-1.25) mg/dL Glucose 158 H (74-99) mg/dL POC Glucose (mg/dL) 175 H 182 H (70-110) mg/dL Calcium 7.5 L (8.4-10.2) mg/dL Phosphorus 1.9 L (2.5-4.5) mg/dL Microbiology - Last 24 Hours (Table) 09/08/23 10:20 Blood Culture - Final Blood 09/08/23 10:10 Blood Culture - Final Blood Assessment and Plan (1) Sepsis Current Visit: Yes Status: Acute Code(s): A41.9 - SEPSIS, UNSPECIFIED ORGANISM SNOMED Code(s): 72485561 (2) Abdominal abscess Current Visit: Yes Status: Acute Code(s): PIL2139 - SNOMED Code(s): 62522526 Plan: 1patient to the hospital with sepsis in this with tachycardia hypotension leukocytosis presented with abdominal pain and did have a large free intraperitoneal air concerning for perforation and needed to cover for the enteric gram Negative both aerobes and anaerobes 2-patient did have renal insufficiency and high risk of nephrotoxicity 3-Patient is status post laparotomy abdominal washout and abdominal culture currently growing E. coli x 2 one of them is multidrug-resistant along with anaerobes and Pat 4the patient is afebrile the patient white count is trending down patient to continue with the Zosyn and Diflucan and monitor clinical course closely Dictation was produced using [employer] dictation software. please excuse any grammatical, word or spelling errors.
[2023-09-14] MEDS: NOREPINEPHRINE 8 MG in SODIUM CHLORIDE 0.9% 250 ML IV SCH (09:08)
[2023-09-14] MEDS: PANTOPRAZOLE 40 MG/10 ML VIAL IVP SCH ×2 (09:11→20:34)
[2023-09-14] MEDS: FLUCONAZOLE IN NACL,ISO-OSM 200 MG in SALINE 1 100ML.BAG IVPB SCH (09:12)
--- NOTE | 2023-09-14 09:45 | XR ---
EXAMINATION TYPE: XR chest 1V portable DATE OF EXAM: 09/14/2023 Comparison: 09/13/2023 Clinical History: 68 year-old male shortness of breath and dyspnea Findings: Prominent leftward patient rotation completely alters normal cardiac and mediastinal contours. Right CVC tip and right PICC tip remains near the mid SVC level. Diffuse interstitial and patchy opacities throughout the left lung, confluent at the left base. The heart margins are secondarily obscured. Hyp erinflation. Mild interstitial prominence throughout the right lung is similar. Interval removal of N G tube. Impression: Portable exam further limited by marked rotation of the patient towards the left. Interval removal of NG tube. There is background COPD with diffuse interstitial density and more extensive pleural-paren chymal opacities throughout the left lung which remain relatively unchanged. Possible small to modera te left pleural effusion also unchanged.
[2023-09-14] MEDS ORDERED: MVI, ADULT NO.4 WITH VIT K 10 ML, TRACE (CONC-1ML/DOSE) 1 ML, SODIUM ACETATE 20 MEQ, PO... IV SCH ×7 (12:00)
[2023-09-14] MEDS ORDERED: FAT EMULSION 20% 250 ML IV SCH (12:00)
--- NOTE | 2023-09-14 12:13 | P.PN ---
Subjective Progress Note Date: 09/14/23 Principal diagnosis: Respiratory failure. 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 He received 1 week of radiation therapy and is currently receiving chemotherapy. He presented to the emergency room earlier today with complaints of abdominal pain for the past 1-2 weeks. Chest x-ray revealed free air under the diaphragm. Computed tomography scan of the chest abdomen pelvis revealed moderate to large free intraperitoneal air. Exact source is unclear. There are numerous small foci of air within the pelvis which could represent small bowel or sigmoid colonic pneumatosis and possible site of hollow viscus perforation. There is reactive mild to moderate abdominopelvic ascites. There is bibasilar consolidation left greater than right. There is an internal area of 6.3 cm fluid. Possibly related to known lung cancer. Consider necrotic t umor versus pulmonary abscess.. Evidence of destruction of the overlying left posterior ninth and 10th ribs. Moderate to severe COPD. Count 16.0. Hemoglobin 15.9. Platelets 541. Sodium 127. Potassium 5.4. Bicarb 23. BUN 35. Creatinine 1.43. Lactic acid 3.3. ProBNP 4600. Viral screen negative. He will be taken urgently to the operating room. He most likely will require prolonged mechanical ventilation postoperatively and we're consulted for the same. He is seen in the preoperative area. He is quite cachectic. BMI of 16.2 kg/m. He is awake and alert. He does have abdominal discomfort. He denies any worsening shortness of breath, cough or congestion. He is maintaining O2 saturations in the 90s on 2 L/m per nasal cannula. At one point he was 85% saturations on room air. He has an albuterol HFA that he uses at home. He is not oxygen dependent. Family is at the bedside. Patient was reevaluated today on 09/09/2023, patient underwent exploratory laparotomy yesterday he was found to have pneumoperitoneum with abdominal abscess and peritonitis, could not find any specific site for perforation, patient had drainage of abdominal abscess with lysis of adhesions. Pos toperatively patient was sent to the ICU on mechanical ventilation. And I was notified about this patient last night and manage his ventilator settings overnight and hemodynamic status is marginal. Patient is now on assist control rate of 20 to tell volume 400 FiO2 45% and PEEP of 5. ABG on 65% FiO2 showed a pO2 of 245 pCO2 39 pH of 7.39. Blood pressure is soft, hence I recommended more fluid boluses to be given, and use norepinephrine if necessary. Patient received at least 2 L of fluid boluses yesterday. Urine output is marginal at 35 mL per hour. He is on Flagyl and Zosyn. Patient is also on propofol at 25 mcg/kg/m IV fluid is at 1 25 mL per hour in the form of 0.9 normal saline. Chest x-ray showed multifocal airspace opacities especially in the left lung, and these are chronic related to his recent lung cancer. Doubt acute infectious process, nonetheless the patient is covered with antibiotics for his abdominal sepsis. Sitting the patient is yet to fully hemodynamically stable, I would not address weaning and extubation today. But I will cut down his propofol and at l east try to assess his mental status. And this will be done on a daily basis. CODE STATUS was changed yesterday after surgery from full code to DO NOT RESUSCITATE CODE STATUS. ABG today as noted above to 45/39/7.33 WBC count is 11.9 hemoglobin 11.9, sodium 133 potassium 4.0 BUN is 25 creatinine 1.23 Reevaluated today on 09/10/23, patient remains in the ICU, intubated and mechanically ventilated. Patient is on assist control rate of 22 tidal volume 400 FiO2 45% and PEEP of 5 ABG showed a pO2 of 139 pCO2 39 pH of 7.36, hence cut down his FiO2 from 45% to 40%. Patient is still hemodynamically unstable requiring norepinephrine at 0.07 mcg/kg/m his IV fluids remains at 1 25 mL per hour using 0.9 normal saline, propofol is at 15 mcg/kg/m. Patient remains on Zosyn and Flagyl he has good urine output, and his labs were all reviewed. WBC count is 9.5 hemoglobin is 11.3. Platelets are 257 basic metabolic profile showed low potassium of 2.8 being addressed accordingly. Renal profile is normal bicarb is 18. Chest x-ray continues to show persistentopacities and pulmonary vascular congestion throughout the lungs more so in the left lower lobe related to his recently diagnosed and treated congenic carcinoma underlying pneumonia is a possibility, but felt to be less likely, nonetheless patient remains on antibiotics including Zosyn and Flagyl. Progress note dated 09/11/2023. 68-year-old male seen in the intensive care unit, room 265. The patient was admitted to the hospital on September 08, it was discovered to have a pneumoperitoneum. Currently, the patient is in the intensive care unit, in room 265, and remains on mechanical ventilation. He went to the operating room on September 08, the day of admission, with a exploratory laparotomy, lysis of adhesions, and drainage of an abscess. Current ventilator settings include the volume assist control, rate 22, tidal volume 400, FiO2 50%, and a PEEP of 5. Blood gases show pO2 of 104, pCO2 41, pH is 7.36. The patient apparently had a daily interruption of sedation yesterday, and apparently did well with his spontaneous breathing trial. The patient is currently on saline at 50 mL an hour, propofol at 30 mcg/kg/m, and norepinephrine at 15 mcg/m. White count 16.8, hemoglobin 11.6, hematocrit 36.5, and platelet count normal. Sodium 140, potassium 3.7, chlorides 111, CO2 21, BUN 9, creatinine 0.5. Calcium is 7.2. Wound cultures show evidence of Escherichia coli, and Pat. Chest x-ray shows a left lower lobe infiltrate. The patient remains on metronidazole, and Zosyn. Progress note dated 09/12/2023. 68-year-old male seen today in room 265. The patient was extubated yesterday, September 11. Currently, he is on BiPAP, with settings of 12/5, and 90%. The patient is receiving saline at 50 mL an hour, and norepinephrine at 7 mcg/m. The patient is not to be reintubated. This is according to his wishes, and family wishes as well. Currently laboratory includes a white count 15.5, hemoglobin 11.6, hematocrit 36.8, and a platelet count of 202,000. Sodium 142, potassium 3.5, chlorides 112, CO2 19, BUN 9, and creatinine 0.45. Phosphorus is 1.9. Wound cultures of the abdomen were positive for Escherichia coli. There is also some anaerobic gram-negative bacilli noted as well. Chest x-ray shows extensive pneumoperitoneum, dense consolidation involving the left mid and lower lung gorman, and patchy pulmonary opacities in the right lower lobe. Progress note dated 09/13/2023. 68-year-old male seen today in room 265. The patient was extubated, September 11, from mechanical ventilation. He is not to be reintubated. The patient remains on BiPAP, with settings of 12/5, and 75%. He was on AIRVO for a very brief period of time yesterday. The patient's getting saline at 50 mL an hour, and TPN at 30 mL an hour. White count 12.4, hemoglobin 11.5, hematocrit 35.2, and platelet count normal. Sodium 146, potassium 3, chlorides 114, CO2 23, BUN 12, creatinine 0.41. Calcium is 7.6, and phosphorus is 1.5. Glucose 175. Wound cultures were positive for Escherichia coli. Chest x-ray shows bilateral multifocal airspace opacities. The chest x-ray is essentially unchanged. Progress note dated 09/14/2023. 68-year-old male seen today in room 265. The patient was extubated from mechanical ventilation on September 11. The patient is not to be reintubated. The patient is a DO NOT RESUSCITATE patient. The patient continues on TPN at 41 mL an hour. The patient goes between AIRVO, at 40 L/m with an FiO2 of 70%, and BiPAP, with settings of 12/5, and 70%. The patient's also getting saline at 50 mL an hour. White count 9.9, hemoglobin 10.5, hematocrit 33, and platelet count 146,000. Sodium 147, potassium 3.3, chlorides 114, CO2 26, BUN 11, and creatinine 0.32. Calcium is 7.3. Phosphorus is 2.1. Abdominal wound cultures were positive for Escherichia coli. Chest x-ray shows changes of COPD, with interstitial density and more extensive pleural parenchymal opacities throughout the left lung. Objective - Vital Signs Vital signs: Vital Signs Temp 98.7 F 09/14/23 08:00 Pulse 94 09/14/23 11:00 Resp 30 H 09/14/23 11:00 BP 100/67 09/13/23 13:00 Pulse Ox 96 09/14/23 11:00 FiO2 70 09/14/23 09:00 Intake & Output 09/13/23 09/14/23 09/14/23 18:59 06:59 18:59 Intake Total 1668 1428 473 Output Total 635 510 225 Balance 1033 918 248 Weight 65.7 kg 68.2 kg 68.2 kg Intake: IV 1316 736 309 Fluconazole in NaCl,Iso- 100 100 Osm 200 mg In Saline 1 100ml.bag @ 100 mls/hr IVPB DAILY [facility] Rx#: [id number] Mvi, Adult No.4 with Vit 30 K 10 ml Trace (Conc-1Ml/ Dose) 1 ml In Amino Acid 5%-D15w+Lytes*E* 1,000 ml @ 30 mls/hr IV .Q24H [facility] Rx#:[id number] Piperacillin-Tazobactam 3 100 100 .375 gm In Sodium Chloride 0.9% 100 ml @ 25 mls/hr IVPB Q8H [facility] Rx#: [id number] Potassium Chloride 20 meq 200 In Water For Injection 1 100ml.bag @ 50 mls/hr IVPB Q2H [facility] Rx#: [id number] Pressure Bag 36 36 9 Sodium Chloride 0.9% 1, 600 600 200 000 ml @ 50 mls/hr IV . Q20H [facility] Rx#:[id number] Sodium Phosphate 30 mmol 250 In Dextrose 5% in Water 250 ml @ 65 mls/hr IVPB ONCE ONE Rx#:[id number] Intake, IV Titration 200 Amount Potassium Chloride 20 meq 200 In Water For Injection 1 100ml.bag @ 50 mls/hr IVPB Q2H [facility] Rx#: [id number] TPN/PPN 352 492 164 Mvi, Adult No.4 with Vit 270 K 10 ml Trace (Conc-1Ml/ Dose) 1 ml In Amino Acid 5%-D15w+Lytes*E* 1,000 ml @ 30 mls/hr IV .Q24H [facility] Rx#:[id number] Mvi, Adult No.4 with Vit 82 492 164 K 10 ml Trace (Conc-1Ml/ Dose) 1 ml In Amino Acid 5%-D15w+Lytes*E* 1,000 ml @ 41 mls/hr IV .Q24H [facility] Rx#:[id number] Output: Drainage 125 30 Abdomen 125 30 Urine 510 510 195 Other: Voiding Method Indwelling Catheter Indwelling Catheter Indwelling Catheter ABP, PAP, CO, CI - Last Documented Arterial Blood Pressure 114/57 - Exam No acute distress, currently on AIRVO. HEENT examination is grossly unremarkable. Neck supple. Full range of motion. No adenopathy thyromegaly or neck vein distention. Cardiovascular examination reveals regular rhythm rate. S1-S2 normal. No S3 or S4. No discernible murmur noted. Heart sounds are distant. Heart rate 94 bpm. Lungs reveal scattered bilateral rhonchi. Breath sounds equal. No wheezes or crackles. Saturations are 95 %. Abdomen soft without bowel sounds. No masses or tenderness. Extremities are intact. No cyanosis clubbing or edema. Skin is without rash or lesion. Neurologic examination is brief but nonfocal. - Labs CBC & Chem 7: 09/14/23 04:18 09/14/23 04:18 Labs: Abnormal Lab Results - Last 24 Hours (Table) 09/13/23 09/14/23 09/14/23 Range/Units 16:00 00:00 04:18 RBC (4.30-5.90) m/uL Hgb (13.0-17.5) gm/dL Hct (39.0-53.0) % RDW (11.5-15.5) % Plt Count (150-450) k/uL Neutrophils # (1.3-7.7) k/uL Lymphocytes # (1.0-4.8) k/uL Sodium 147 H 147 H (137-145) mmol/L Potassium 2.9 L 3.3 L (3.5-5.1) mmol/L Chloride 113 H 114 H (98-107) mmol/L Creatinine 0.38 L 0.32 L (0.66-1.25) mg/dL Glucose 158 H 127 H (74-99) mg/dL POC Glucose (mg/dL) 115 H (70-110) mg/dL Calcium 7.5 L 7.3 L (8.4-10.2) mg/dL Phosphorus 1.9 L 2.1 L (2.5-4.5) mg/dL 09/14/23 Range/Units 04:18 RBC 3.38 L (4.30-5.90) m/uL Hgb 10.5 L (13.0-17.5) gm/dL Hct 33.0 L (39.0-53.0) % RDW 16.4 H (11.5-15.5) % Plt Count 146 L (150-450) k/uL Neutrophils # 8.8 H (1.3-7.7) k/uL Lymphocytes # 0.3 L (1.0-4.8) k/uL Sodium (137-145) mmol/L Potassium (3.5-5.1) mmol/L Chloride (98-107) mmol/L Creatinine (0.66-1.25) mg/dL Glucose (74-99) mg/dL POC Glucose (mg/dL) (70-110) mg/dL Calcium (8.4-10.2) mg/dL Phosphorus (2.5-4.5) mg/dL Microbiology - Last 24 Hours (Table) 09/08/23 10:20 Blood Culture - Final Blood 09/08/23 10:10 Blood Culture - Final Blood Assessment and Plan Assessment: Postop day #6, status post exploratory laparotomy, lysis of adhesions, drainage of abscess, for pneumoperitoneum. Routine postoperative ventilator management, S/P extubation on 09/11/2023. History of lung cancer, poorly differentiated squamous cell carcinoma status post, radiation and chemotherapy. Moderate to severe COPD. Previous history of tobacco use. Severe protein calorie malnutrition. Anorexia/cachexia syndrome of malignancy. Plan: Plan dated 09/11/2023. The patient remains critically ill in the intensive care unit, room 265. The patient apparently did well on his daily interruption of sedation and spontaneous breathing trial yesterday, and they will be repeated today. If the patient has excellent weaning parameters, after 20 or 30 minutes on pressure support of 5 CPAP of 5, and her extubation. The patient apparently is a no code, and is not to be reintubated. We will clarify that with the family prior to extubation. Labs, x-rays, and medications are reviewed. We will continue to follow this patient, and make recommendations along the way. Labs, x-rays, and medications are reviewed. Prognosis is certainly very poor. Plan dated 09/12/2023. 68-year-old critically ill patient who was seen in the intensive care unit, room 265. The patient was successfully extubated yesterday, 09/11/2023. By his own wishes, and family wishes, the patient is not to be reintubated. Currently, the patient is on BiPAP, with settings of 12/5, and 90%. The patient remains on saline at 50 mL an hour, and norepinephrine at 7 mcg/m. Labs, x-rays, and medications are reviewed. The patient's overall prognosis remains guarded. We will continue to follow the patient, and make recommendations along the way. Plan dated 09/13/2023. 68-year-old male, seen today in room 265. The patient remains critically ill. He continues on BiPAP, and apparently according to respiratory therapy, could no t tolerate air well for a long period of time. The patient was started on TPN at 30 mL an hour. He is getting saline at 50 mL an hour. BiPAP settings of 12/5, and 75%. Yesterday, he was on 90%. The patient is a DO NOT RESUSCITATE patient. Hospice consultation in my opinion would be very appropriate. No additional recommendations are made at this time. We will continue to follow the patient, and make recommendations where appropriate. Prognosis is certainly guarded. Plan dated 09/14/2023. The patient is seen today in room 265. Labs, x-rays, and medications are reviewed. We had a talk with the patient and the patient's [id number], about CODE STATUS. No decision was made, the patient is still a no code, but, there is some consideration about hospice care, palliative care. We will continue to follow the patient, make recommendations along the way. The patient continues on AIRVO, at 40 L/m with an FiO2 of 70%. He also continues on TPN at 41 mL an hour. Saline should be converted to D5W, given his developing hypernatremia. We will continue to follow the patient, and make recommendations. Time with Patient: Greater than 30
--- NOTE | 2023-09-14 12:51 | P.PN ---
Subjective Progress Note Date: 09/14/23 CHIEF COMPLAINT: Pneumoperitoneum HISTORY OF PRESENT ILLNESS: Patient is postop day #6 status post exploratory laparotomy, drainage of abdominal abscess with lysis of adhesions. Patient on AIRVO. He reports his pain is controlled. He is having bowel movements and flatus. Denies any nausea or vomiting. HILARIO drain 30 mL serosanguineous output. Afebrile. WBC 9.9 Hgb 10.5 platelets 146 sodium 147 potassium 3.3 creatinine 0.32 magnesium 2.0. Phosphorus 2.1 PHYSICAL EXAM: VITAL SIGNS: Reviewed. GENERAL: no acute distress. ABDOMEN: Soft. Nondistended. Nontender Incisional dressing clean dry and intact. HILARIO drain serosanguineous NEUROLOGIC: awake ASSESSMENT: 1. Pneumoperitoneum with abdominal abscess and peritonitis 2. Hypokalemia and hypophosphatemia PLAN: -Start clear liquids -Continue TPN for nutrition support -Continue antibiotics -Continue pain management -Replace electrolytes -DVT prophylaxis subcu heparin and GI prophylaxis Protonix Physician Auricular Therapist note has been reviewed by physician. Signing provider agrees with the documented findings, assessment, and plan of care. I have personally seen and examined the patient, reviewed the FOOD AND NUTRITION SUPERVISOR /PAs history, exam and MDM and agree with the assessment and plan as written. Based on total visit time, I have performed more than 50% of the visit. As above: Patient clinically improved today. Tolerating clear liquids. No significant abdominal pain. HILARIO draining serosanguineous. Continue antibiotics. Continue clears for today. Objective - Vital Signs Vital signs: Vital Signs Temp 98.7 F 09/14/23 08:00 Pulse 96 09/14/23 12:25 Resp 30 H 09/14/23 11:00 BP 100/67 09/13/23 13:00 Pulse Ox 95 09/14/23 12:10 FiO2 85 09/14/23 12:10 Intake & Output 09/13/23 09/14/23 09/14/23 18:59 06:59 18:59 Intake Total 1668 1428 473 Output Total 635 510 225 Balance 1033 918 248 Weight 65.7 kg 68.2 kg 68.2 kg Intake: IV 1316 736 309 Fluconazole in NaCl,Iso- 100 100 Osm 200 mg In Saline 1 100ml.bag @ 100 mls/hr IVPB DAILY [facility] Rx#: [id number] Mvi, Adult No.4 with Vit 30 K 10 ml Trace (Conc-1Ml/ Dose) 1 ml In Amino Acid 5%-D15w+Lytes*E* 1,000 ml @ 30 mls/hr IV .Q24H [facility] Rx#:[id number] Piperacillin-Tazobactam 3 100 100 .375 gm In Sodium Chloride 0.9% 100 ml @ 25 mls/hr IVPB Q8H [facility] Rx#: [id number] Potassium Chloride 20 meq 200 In Water For Injection 1 100ml.bag @ 50 mls/hr IVPB Q2H [facility] Rx#: [id number] Pressure Bag 36 36 9 Sodium Chloride 0.9% 1, 600 600 200 000 ml @ 50 mls/hr IV . Q20H [facility] Rx#:[id number] Sodium Phosphate 30 mmol 250 In Dextrose 5% in Water 250 ml @ 65 mls/hr IVPB ONCE ONE Rx#:[id number] Intake, IV Titration 200 Amount Potassium Chloride 20 meq 200 In Water For Injection 1 100ml.bag @ 50 mls/hr IVPB Q2H [facility] Rx#: [id number] TPN/PPN 352 492 164 Mvi, Adult No.4 with Vit 270 K 10 ml Trace (Conc-1Ml/ Dose) 1 ml In Amino Acid 5%-D15w+Lytes*E* 1,000 ml @ 30 mls/hr IV .Q24H [facility] Rx#:[id number] Mvi, Adult No.4 with Vit 82 492 164 K 10 ml Trace (Conc-1Ml/ Dose) 1 ml In Amino Acid 5%-D15w+Lytes*E* 1,000 ml @ 41 mls/hr IV .Q24H [facility] Rx#:[id number] Output: Drainage 125 30 Abdomen 125 30 Urine 510 510 195 Other: Voiding Method Indwelling Catheter Indwelling Catheter Indwelling Catheter ABP, PAP, CO, CI - Last Documented Arterial Blood Pressure 114/57 - Labs CBC & Chem 7: 09/14/23 04:18 09/14/23 04:18 Labs: Abnormal Lab Results - Last 24 Hours (Table) 09/13/23 09/14/23 09/14/23 Range/Units 16:00 00:00 04:18 RBC (4.30-5.90) m/uL Hgb (13.0-17.5) gm/dL Hct (39.0-53.0) % RDW (11.5-15.5) % Plt Count (150-450) k/uL Neutrophils # (1.3-7.7) k/uL Lymphocytes # (1.0-4.8) k/uL Sodium 147 H 147 H (137-145) mmol/L Potassium 2.9 L 3.3 L (3.5-5.1) mmol/L Chloride 113 H 114 H (98-107) mmol/L Creatinine 0.38 L 0.32 L (0.66-1.25) mg/dL Glucose 158 H 127 H (74-99) mg/dL POC Glucose (mg/dL) 115 H (70-110) mg/dL Calcium 7.5 L 7.3 L (8.4-10.2) mg/dL Phosphorus 1.9 L 2.1 L (2.5-4.5) mg/dL 09/14/23 Range/Units 04:18 RBC 3.38 L (4.30-5.90) m/uL Hgb 10.5 L (13.0-17.5) gm/dL Hct 33.0 L (39.0-53.0) % RDW 16.4 H (11.5-15.5) % Plt Count 146 L (150-450) k/uL Neutrophils # 8.8 H (1.3-7.7) k/uL Lymphocytes # 0.3 L (1.0-4.8) k/uL Sodium (137-145) mmol/L Potassium (3.5-5.1) mmol/L Chloride (98-107) mmol/L Creatinine (0.66-1.25) mg/dL Glucose (74-99) mg/dL POC Glucose (mg/dL) (70-110) mg/dL Calcium (8.4-10.2) mg/dL Phosphorus (2.5-4.5) mg/dL Microbiology - Last 24 Hours (Table) 09/08/23 10:20 Blood Culture - Final Blood 09/08/23 10:10 Blood Culture - Final Blood
[2023-09-14] MEDS: SODIUM CHLORIDE 0.9% 1,000 ML IV SCH (13:47)
--- NOTE | 2023-09-14 14:56 | P.PN ---
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 for the patient has received radiation therapy currently undergoing chemotherapy presenting to the ER for evaluation of abdominal pain patient did have CT abdominal pelvis with evidence of intraperitoneal air patient was taken to the OR status post abdominal washout exact site of perforation could not be determined patient admitted to the ICU after surgery On today's evaluation that is 09/14/2023, the patient remains to be afebrile, the patient is breathing comfortably requiring less FiO2 and the patient will be switched over to high flow nasal cannula oxygen of the BiPAP patient denies having any chest pain no worsening cough or sputum production has been started on a diet which he has been tolerating. Patient white count normalized to 9.9, creatinine 0.32 Objective - Vital Signs Vital signs: Vital Signs Temp 98.1 F 09/14/23 12:00 Pulse 96 09/14/23 13:00 Resp 22 09/14/23 13:00 BP 100/67 09/13/23 13:00 Pulse Ox 93 L 09/14/23 13:00 FiO2 85 09/14/23 12:10 Intake & Output 09/13/23 09/14/23 09/14/23 18:59 06:59 18:59 Intake Total 1668 1428 1055 Output Total 635 510 345 Balance 1033 918 710 Weight 65.7 kg 68.2 kg 68.2 kg Intake: IV 1316 736 468 Fluconazole in NaCl,Iso- 100 100 Osm 200 mg In Saline 1 100ml.bag @ 100 mls/hr IVPB DAILY [facility] Rx#: [id number] Mvi, Adult No.4 with Vit 30 K 10 ml Trace (Conc-1Ml/ Dose) 1 ml In Amino Acid 5%-D15w+Lytes*E* 1,000 ml @ 30 mls/hr IV .Q24H [facility] Rx#:[id number] Piperacillin-Tazobactam 3 100 100 .375 gm In Sodium Chloride 0.9% 100 ml @ 25 mls/hr IVPB Q8H [facility] Rx#: [id number] Potassium Chloride 20 meq 200 In Water For Injection 1 100ml.bag @ 50 mls/hr IVPB Q2H [facility] Rx#: [id number] Pressure Bag 36 36 18 Sodium Chloride 0.9% 1, 600 600 350 000 ml @ 50 mls/hr IV . Q20H [facility] Rx#:[id number] Sodium Phosphate 30 mmol 250 In Dextrose 5% in Water 250 ml @ 65 mls/hr IVPB ONCE ONE Rx#:[id number] Intake, IV Titration 200 Amount Potassium Chloride 20 meq 200 In Water For Injection 1 100ml.bag @ 50 mls/hr IVPB Q2H [facility] Rx#: [id number] Oral 300 TPN/PPN 352 492 287 Mvi, Adult No.4 with Vit 270 K 10 ml Trace (Conc-1Ml/ Dose) 1 ml In Amino Acid 5%-D15w+Lytes*E* 1,000 ml @ 30 mls/hr IV .Q24H [facility] Rx#:[id number] Mvi, Adult No.4 with Vit 82 492 287 K 10 ml Trace (Conc-1Ml/ Dose) 1 ml In Amino Acid 5%-D15w+Lytes*E* 1,000 ml @ 41 mls/hr IV .Q24H [facility] Rx#:[id number] Output: Drainage 125 30 Abdomen 125 30 Urine 510 510 315 Other: Voiding Method Indwelling Catheter Indwelling Catheter Indwelling Catheter ABP, PAP, CO, CI - Last Documented Arterial Blood Pressure 122/58 - Exam GENERAL DESCRIPTION: Elderly male lying in bed in no distress RESPIRATORY SYSTEM: Unlabored breathing , decreased breath sounds at bases HEART: S1 S2 regular rate and rhythm ABDOMEN: soft , no tenderness EXTREMITIES: No edema feet - Labs CBC & Chem 7: 09/14/23 04:18 09/14/23 04:18 Labs: Abnormal Lab Results - Last 24 Hours (Table) 09/13/23 09/14/23 09/14/23 Range/Units 16:00 00:00 04:18 RBC (4.30-5.90) m/uL Hgb (13.0-17.5) gm/dL Hct (39.0-53.0) % RDW (11.5-15.5) % Plt Count (150-450) k/uL Neutrophils # (1.3-7.7) k/uL Lymphocytes # (1.0-4.8) k/uL Sodium 147 H 147 H (137-145) mmol/L Potassium 2.9 L 3.3 L (3.5-5.1) mmol/L Chloride 113 H 114 H (98-107) mmol/L Creatinine 0.38 L 0.32 L (0.66-1.25) mg/dL Glucose 158 H 127 H (74-99) mg/dL POC Glucose (mg/dL) 115 H (70-110) mg/dL Calcium 7.5 L 7.3 L (8.4-10.2) mg/dL Phosphorus 1.9 L 2.1 L (2.5-4.5) mg/dL 09/14/23 Range/Units 04:18 RBC 3.38 L (4.30-5.90) m/uL Hgb 10.5 L (13.0-17.5) gm/dL Hct 33.0 L (39.0-53.0) % RDW 16.4 H (11.5-15.5) % Plt Count 146 L (150-450) k/uL Neutrophils # 8.8 H (1.3-7.7) k/uL Lymphocytes # 0.3 L (1.0-4.8) k/uL Sodium (137-145) mmol/L Potassium (3.5-5.1) mmol/L Chloride (98-107) mmol/L Creatinine (0.66-1.25) mg/dL Glucose (74-99) mg/dL POC Glucose (mg/dL) (70-110) mg/dL Calcium (8.4-10.2) mg/dL Phosphorus (2.5-4.5) mg/dL Microbiology - Last 24 Hours (Table) 09/08/23 10:20 Blood Culture - Final Blood 09/08/23 10:10 Blood Culture - Final Blood Assessment and Plan (1) Sepsis Current Visit: Yes Status: Acute Code(s): A41.9 - SEPSIS, UNSPECIFIED ORGANISM SNOMED Code(s): 16364283 (2) Abdominal abscess Current Visit: Yes Status: Acute Code(s): [id number] - SNOMED Code(s): 70093216 Plan: 1patient to the hospital with sepsis in this with tachycardia hypotension leukocytosis presented with abdominal pain and did have a large free intraperitoneal air concerning for perforation and needed to cover for the enteric gram Negative both aerobes and anaerobes 2-patient did have renal insufficiency and high risk of nephrotoxicity 3-Patient is status post laparotomy abdominal washout and abdominal culture currently growing E. coli x 2 one of them is multidrug-resistant along with anaerobes and Pat 4the patient is afebrile the patient white count And the patient white count has normalized. 5 Patient to continue with the Zosyn Diflucan and monitor his clinical course closely Dictation was produced using [employer] dictation software. please excuse any grammatical, word or spelling errors. Time with Patient: Less than 30
[2023-09-14 15:01] LABS: Glucose,Whole Blood 211 mg/dL (70-110)
[2023-09-14 17:01] LABS: Glucose,Whole Blood 99 mg/dL (70-110)
[2023-09-14] MEDS: MVI, ADULT NO.4 WITH VIT K 10 ML, TRACE (CONC-1ML/DOSE) 1 ML, SODIUM ACETATE 20 MEQ, PO... IV SCH ×7 (18:36)
[2023-09-14] MEDS: FAT EMULSION 20% 250 ML IV SCH (18:37)
[2023-09-14] MEDS: POTASSIUM CHLORIDE ER 20 MEQ TAB.ER PO SCH ×2 (20:34→23:44)
[2023-09-15 00:17] LABS: Glucose,Whole Blood 118 mg/dL (70-110)
[2023-09-15] MEDS: PIPERACILLIN-TAZOBACTAM 3.375 GM in SODIUM CHLORIDE 0.9% 100 ML IVPB SCH ×3 (03:30→20:18)
[2023-09-15 06:15] LABS: Glucose,Whole Blood 161 mg/dL (70-110)
[2023-09-15] MEDS: SODIUM CHLORIDE 0.9% 1,000 ML IV SCH (06:33)
[2023-09-15] MEDS: ALBUTEROL NEBULIZED 2.5 MG/3 ML INHALATION PRN ×4 (08:43→21:17)
[2023-09-15] MEDS: NOREPINEPHRINE 8 MG in SODIUM CHLORIDE 0.9% 250 ML IV SCH (09:23)
[2023-09-15] MEDS: HEPARIN SODIUM,PORCINE 5,000 UNIT/ML 1 ML VIAL SQ SCH ×2 (09:24→15:50)
[2023-09-15] MEDS: PANTOPRAZOLE 40 MG/10 ML VIAL IVP SCH ×2 (09:24→20:19)
[2023-09-15] MEDS: FLUCONAZOLE IN NACL,ISO-OSM 200 MG in SALINE 1 100ML.BAG IVPB SCH (09:57)
[2023-09-15 10:06] LABS: African American GFR (CKD) >90 (>60 ml/min/1.73 sqM); Anion Gap 8 mmol/L; Blood Urea Nitrogen 7 mg/dL (9-20); Calcium 7.1 mg/dL (8.4-10.2); Carbon Dioxide 28 mmol/L (22-30); Chloride 107 mmol/L (98-107); Glucose 88 mg/dL (74-99); Magnesium 1.8 mg/dL (1.6-2.3); Non-African American GFR(CKD) >90 (>60 ml/min/1.73 sqM); Phosphorus 2.1 mg/dL (2.5-4.5); Potassium 3.1 mmol/L (3.5-5.1); Sodium 143 mmol/L (137-145)
[2023-09-15 11:50] LABS: Glucose,Whole Blood 78 mg/dL (70-110)
--- NOTE | 2023-09-15 12:58 | P.PN ---
Subjective Progress Note Date: 09/15/23 CHIEF COMPLAINT: Pneumoperitoneum HISTORY OF PRESENT ILLNESS: Patient is postop day #7 status post exploratory laparotomy, drainage of abdominal abscess with lysis of adhesions. Patient on AIRVO. He reports his pain is controlled. He is having bowel movements and flatus. Denies any nausea or vomiting. Right arm that has PICC line is swollen. Afebrile. WBC 9.9 potassium 3.1 PHYSICAL EXAM: VITAL SIGNS: Reviewed. GENERAL: no acute distress. ABDOMEN: Soft. mildly distended. Nontender Incisional dressing clean dry and intact. HILARIO drain serosanguineous NEUROLOGIC: awake Extremities: Swelling right arm ASSESSMENT: 1. Pneumoperitoneum with abdominal abscess and peritonitis 2. Hypokalemia and hypophosphatemia PLAN: -Advance diet to full liquids. Start ensure drinks -Continue TPN for nutrition support to oral intake increases -Continue antibiotics -Continue pain management -Continue to Replace electrolytes -Venous Doppler of right arm ordered due to swelling. keep arm elevated. -DVT prophylaxis subcu heparin and GI prophylaxis Protonix Physician [employer]/Fireman note has been reviewed by physician. Signing provider agrees with the documented findings, assessment, and plan of care. I have personally seen and examined the patient, reviewed the PCA /PAs history, exam and MDM and agree with the assessment and plan as written. Based on total visit time, I have performed more than 50% of the visit. As above: Patient doing well. Tolerating liquids. May advance diet. Continue TPN for now. Await Doppler right upper extremity. Objective - Vital Signs Vital signs: Vital Signs Temp 98.6 F 09/15/23 07:54 Pulse 90 09/15/23 08:59 Resp 21 09/15/23 07:54 BP 113/67 09/15/23 07:54 Pulse Ox 95 09/15/23 08:43 FiO2 75 09/15/23 08:43 Intake & Output 09/14/23 09/15/23 09/15/23 18:59 06:59 18:59 Intake Total 1890 359 Output Total 630 500 Balance 1260 -141 Weight 68.2 kg 57 kg Intake: IV 757 77 Fat Emulsion 20% 250 ml @ 21 21 20.833 mls/hr IV MoTh [facility] Rx#:[id number] Fluconazole in NaCl,Iso- 100 Osm 200 mg In Saline 1 100ml.bag @ 100 mls/hr IVPB DAILY [facility] Rx#: [id number] Pressure Bag 36 6 Sodium Chloride 0.9% 1, 600 50 000 ml @ 50 mls/hr IV . Q20H [facility] Rx#:[id number] Oral 600 200 TPN/PPN 533 82 Mvi, Adult No.4 with Vit 533 82 K 10 ml Trace (Conc-1Ml/ Dose) 1 ml In Amino Acid 5%-D15w+Lytes*E* 1,000 ml @ 41 mls/hr IV .Q24H [facility] Rx#:[id number] Output: Drainage 30 Abdomen 30 Urine 600 500 Other: Voiding Method Indwelling Catheter External Catheter # Bowel Movements 1 ABP, PAP, CO, CI - Last Documented Arterial Blood Pressure 118/53 - Labs CBC & Chem 7: 09/14/23 04:18 09/15/23 08:30 Labs: Abnormal Lab Results - Last 24 Hours (Table) 09/14/23 09/14/23 09/15/23 Range/Units 14:58 14:59 00:16 Potassium 3.2 L (3.5-5.1) mmol/L BUN (9-20) mg/dL Creatinine (0.66-1.25) mg/dL POC Glucose (mg/dL) 211 H 118 H (70-110) mg/dL Calcium (8.4-10.2) mg/dL Phosphorus (2.5-4.5) mg/dL 09/15/23 09/15/23 Range/Units 06:13 08:30 Potassium 3.1 L (3.5-5.1) mmol/L BUN 7 L (9-20) mg/dL Creatinine 0.28 L (0.66-1.25) mg/dL POC Glucose (mg/dL) 161 H (70-110) mg/dL Calcium 7.1 L (8.4-10.2) mg/dL Phosphorus 2.1 L (2.5-4.5) mg/dL
[2023-09-15] MEDS ORDERED: POTASSIUM CHLORIDE ER 20 MEQ TAB.ER PO SCH (13:00)
--- NOTE | 2023-09-15 13:25 | US ---
EXAMINATION TYPE: US venous doppler duplex UE RT DATE OF EXAM: 09/15/2023 COMPARISON: NONE CLINICAL INDICATION: Male, 68 years old with history of right arm swelling; Edema right arm SIDE PERFORMED: right Right Arm: *Extreme technical limitations, patient very thin. Limited evaluation of jugular vein due to bandages. Limited evaluation of brachial veins due to PICC line and bandages. Possible small amoun t of non-occluding thrombus noted around PICC line in basilic vein IMPRESSION: Thrombophlebitis around the PICC line in basilic vein suggested with nonoccluding thrombus.
--- NOTE | 2023-09-15 14:15 | P.PN ---
Subjective Progress Note Date: 09/15/23 Principal diagnosis: Respiratory failure. 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 He received 1 week of radiation therapy and is currently receiving chemotherapy. He presented to the emergency room earlier today with complaints of abdominal pain for the past 1-2 weeks. Chest x-ray revealed free air under the diaphragm. Computed tomography scan of the chest abdomen pelvis revealed moderate to large free intraperitoneal air. Exact source is unclear. There are numerous small foci of air within the pelvis which could represent small bowel or sigmoid colonic pneumatosis and possible site of hollow viscus perforation. There is reactive mild to moderate abdominopelvic ascites. There is bibasilar consolidation left greater than right. There is an internal area of 6.3 cm fluid. Possibly related to known lung cancer. Consider necrotic t umor versus pulmonary abscess.. Evidence of destruction of the overlying left posterior ninth and 10th ribs. Moderate to severe COPD. Count 16.0. Hemoglobin 15.9. Platelets 541. Sodium 127. Potassium 5.4. Bicarb 23. BUN 35. Creatinine 1.43. Lactic acid 3.3. ProBNP 4600. Viral screen negative. He will be taken urgently to the operating room. He most likely will require prolonged mechanical ventilation postoperatively and we're consulted for the same. He is seen in the preoperative area. He is quite cachectic. BMI of 16.2 kg/m. He is awake and alert. He does have abdominal discomfort. He denies any worsening shortness of breath, cough or congestion. He is maintaining O2 saturations in the 90s on 2 L/m per nasal cannula. At one point he was 85% saturations on room air. He has an albuterol HFA that he uses at home. He is not oxygen dependent. Family is at the bedside. Patient was reevaluated today on 09/09/2023, patient underwent exploratory laparotomy yesterday he was found to have pneumoperitoneum with abdominal abscess and peritonitis, could not find any specific site for perforation, patient had drainage of abdominal abscess with lysis of adhesions. Pos toperatively patient was sent to the ICU on mechanical ventilation. And I was notified about this patient last night and manage his ventilator settings overnight and hemodynamic status is marginal. Patient is now on assist control rate of 20 to tell volume 400 FiO2 45% and PEEP of 5. ABG on 65% FiO2 showed a pO2 of 245 pCO2 39 pH of 7.39. Blood pressure is soft, hence I recommended more fluid boluses to be given, and use norepinephrine if necessary. Patient received at least 2 L of fluid boluses yesterday. Urine output is marginal at 35 mL per hour. He is on Flagyl and Zosyn. Patient is also on propofol at 25 mcg/kg/m IV fluid is at 1 25 mL per hour in the form of 0.9 normal saline. Chest x-ray showed multifocal airspace opacities especially in the left lung, and these are chronic related to his recent lung cancer. Doubt acute infectious process, nonetheless the patient is covered with antibiotics for his abdominal sepsis. Sitting the patient is yet to fully hemodynamically stable, I would not address weaning and extubation today. But I will cut down his propofol and at l east try to assess his mental status. And this will be done on a daily basis. CODE STATUS was changed yesterday after surgery from full code to DO NOT RESUSCITATE CODE STATUS. ABG today as noted above to 45/39/7.33 WBC count is 11.9 hemoglobin 11.9, sodium 133 potassium 4.0 BUN is 25 creatinine 1.23 Reevaluated today on 09/10/23, patient remains in the ICU, intubated and mechanically ventilated. Patient is on assist control rate of 22 tidal volume 400 FiO2 45% and PEEP of 5 ABG showed a pO2 of 139 pCO2 39 pH of 7.36, hence cut down his FiO2 from 45% to 40%. Patient is still hemodynamically unstable requiring norepinephrine at 0.07 mcg/kg/m his IV fluids remains at 1 25 mL per hour using 0.9 normal saline, propofol is at 15 mcg/kg/m. Patient remains on Zosyn and Flagyl he has good urine output, and his labs were all reviewed. WBC count is 9.5 hemoglobin is 11.3. Platelets are 257 basic metabolic profile showed low potassium of 2.8 being addressed accordingly. Renal profile is normal bicarb is 18. Chest x-ray continues to show persistentopacities and pulmonary vascular congestion throughout the lungs more so in the left lower lobe related to his recently diagnosed and treated congenic carcinoma underlying pneumonia is a possibility, but felt to be less likely, nonetheless patient remains on antibiotics including Zosyn and Flagyl. Progress note dated 09/11/2023. 68-year-old male seen in the intensive care unit, room 265. The patient was admitted to the hospital on September 08, it was discovered to have a pneumoperitoneum. Currently, the patient is in the intensive care unit, in room 265, and remains on mechanical ventilation. He went to the operating room on September 08, the day of admission, with a exploratory laparotomy, lysis of adhesions, and drainage of an abscess. Current ventilator settings include the volume assist control, rate 22, tidal volume 400, FiO2 50%, and a PEEP of 5. Blood gases show pO2 of 104, pCO2 41, pH is 7.36. The patient apparently had a daily interruption of sedation yesterday, and apparently did well with his spontaneous breathing trial. The patient is currently on saline at 50 mL an hour, propofol at 30 mcg/kg/m, and norepinephrine at 15 mcg/m. White count 16.8, hemoglobin 11.6, hematocrit 36.5, and platelet count normal. Sodium 140, potassium 3.7, chlorides 111, CO2 21, BUN 9, creatinine 0.5. Calcium is 7.2. Wound cultures show evidence of Escherichia coli, and Pat. Chest x-ray shows a left lower lobe infiltrate. The patient remains on metronidazole, and Zosyn. Progress note dated 09/12/2023. 68-year-old male seen today in room 265. The patient was extubated yesterday, September 11. Currently, he is on BiPAP, with settings of 12/5, and 90%. The patient is receiving saline at 50 mL an hour, and norepinephrine at 7 mcg/m. The patient is not to be reintubated. This is according to his wishes, and family wishes as well. Currently laboratory includes a white count 15.5, hemoglobin 11.6, hematocrit 36.8, and a platelet count of 202,000. Sodium 142, potassium 3.5, chlorides 112, CO2 19, BUN 9, and creatinine 0.45. Phosphorus is 1.9. Wound cultures of the abdomen were positive for Escherichia coli. There is also some anaerobic gram-negative bacilli noted as well. Chest x-ray shows extensive pneumoperitoneum, dense consolidation involving the left mid and lower lung gorman, and patchy pulmonary opacities in the right lower lobe. Progress note dated 09/13/2023. 68-year-old male seen today in room 265. The patient was extubated, September 11, from mechanical ventilation. He is not to be reintubated. The patient remains on BiPAP, with settings of 12/5, and 75%. He was on AIRVO for a very brief period of time yesterday. The patient's getting saline at 50 mL an hour, and TPN at 30 mL an hour. White count 12.4, hemoglobin 11.5, hematocrit 35.2, and platelet count normal. Sodium 146, potassium 3, chlorides 114, CO2 23, BUN 12, creatinine 0.41. Calcium is 7.6, and phosphorus is 1.5. Glucose 175. Wound cultures were positive for Escherichia coli. Chest x-ray shows bilateral multifocal airspace opacities. The chest x-ray is essentially unchanged. Progress note dated 09/14/2023. 68-year-old male seen today in room 265. The patient was extubated from mechanical ventilation on September 11. The patient is not to be reintubated. The patient is a DO NOT RESUSCITATE patient. The patient continues on TPN at 41 mL an hour. The patient goes between AIRVO, at 40 L/m with an FiO2 of 70%, and BiPAP, with settings of 12/5, and 70%. The patient's also getting saline at 50 mL an hour. White count 9.9, hemoglobin 10.5, hematocrit 33, and platelet count 146,000. Sodium 147, potassium 3.3, chlorides 114, CO2 26, BUN 11, and creatinine 0.32. Calcium is 7.3. Phosphorus is 2.1. Abdominal wound cultures were positive for Escherichia coli. Chest x-ray shows changes of COPD, with interstitial density and more extensive pleural parenchymal opacities throughout the left lung. Progress note dated 09/15/2023. 68-year-old male who seen today in room 373. The patient was admitted with a diagnosis of a perforated viscus, head pneumoperitoneum. That was surgically repaired. The patient also has a history of lung cancer. Currently he is a DO NOT RESUSCITATE patient. He's currently on AIRVO, with settings of 60 L/m with an FiO2 of 70%. He's getting TPN at 42 mL an hour and saline at 10 mL an hour. He continues on both Zosyn and fluconazole. Sodium is 143, potassium 3.1, chlorides 107, CO2 28, anion gap 8, BUN 7, creatinine 0.28, and glucose 88. Calcium 7.1, phosphorus 2.1, and magnesium 1.8. Wound cultures are positive for 2 different species of Escherichia coli. In addition, there were fungi noted in the wound cultures. An ultrasound done of the right arm, reveals thrombophlebitis around the PICC line, in the basilic vein, with a nonoccluding thrombus. Objective - Vital Signs Vital signs: Vital Signs Temp 98.9 F 09/15/23 12:31 Pulse 89 09/15/23 12:31 Resp 20 09/15/23 12:31 BP 109/59 09/15/23 12:31 Pulse Ox 95 09/15/23 12:31 FiO2 75 09/15/23 12:31 Intake & Output 09/14/23 09/15/23 09/15/23 18:59 06:59 18:59 Intake Total 1890 359 100 Output Total 630 500 Balance 1260 -141 100 Weight 68.2 kg 57 kg 57 kg Intake: IV 757 77 100 Fat Emulsion 20% 250 ml @ 21 21 20.833 mls/hr IV MoTh [facility] Rx#:[id number] Fluconazole in NaCl,Iso- 100 Osm 200 mg In Saline 1 100ml.bag @ 100 mls/hr IVPB DAILY [facility] Rx#: [id number] Piperacillin-Tazobactam 3 100 .375 gm In Sodium Chloride 0.9% 100 ml @ 25 mls/hr IVPB Q8H [facility] Rx#: [id number] Pressure Bag 36 6 Sodium Chloride 0.9% 1, 600 50 000 ml @ 50 mls/hr IV . Q20H [facility] Rx#:[id number] Oral 600 200 TPN/PPN 533 82 Mvi, Adult No.4 with Vit 533 82 K 10 ml Trace (Conc-1Ml/ Dose) 1 ml In Amino Acid 5%-D15w+Lytes*E* 1,000 ml @ 41 mls/hr IV .Q24H [facility] Rx#:[id number] Output: Drainage 30 Abdomen 30 Urine 600 500 Other: Voiding Method Indwelling Catheter External Catheter # Bowel Movements 1 ABP, PAP, CO, CI - Last Documented Arterial Blood Pressure 118/53 - Exam No acute distress, currently on AIRVO. HEENT examination is grossly unremarkable. Neck supple. Full range of motion. No adenopathy thyromegaly or neck vein distention. Cardiovascular examination reveals regular rhythm rate. S1-S2 normal. No S3 or S4. No discernible murmur noted. Heart sounds are distant. Heart rate 90 bpm. Lungs reveal scattered bilateral rhonchi. Breath sounds equal. No wheezes or crackles. Saturations are 95 %. Abdomen soft without bowel sounds. No masses or tenderness. Extremities are intact. No cyanosis clubbing or edema. Skin is without rash or lesion. Neurologic examination is brief but nonfocal. - Labs CBC & Chem 7: 09/14/23 04:18 09/15/23 08:30 Labs: Abnormal Lab Results - Last 24 Hours (Table) 09/14/23 09/14/23 09/15/23 Range/Units 14:58 14:59 00:16 Potassium 3.2 L (3.5-5.1) mmol/L BUN (9-20) mg/dL Creatinine (0.66-1.25) mg/dL POC Glucose (mg/dL) 211 H 118 H (70-110) mg/dL Calcium (8.4-10.2) mg/dL Phosphorus (2.5-4.5) mg/dL 09/15/23 09/15/23 Range/Units 06:13 08:30 Potassium 3.1 L (3.5-5.1) mmol/L BUN 7 L (9-20) mg/dL Creatinine 0.28 L (0.66-1.25) mg/dL POC Glucose (mg/dL) 161 H (70-110) mg/dL Calcium 7.1 L (8.4-10.2) mg/dL Phosphorus 2.1 L (2.5-4.5) mg/dL Assessment and Plan Assessment: Postop day #7, status post exploratory laparotomy, lysis of adhesions, drainage of abscess, for pneumoperitoneum. Routine postoperative ventilator management, S/P extubation on 09/11/2023. History of lung cancer, poorly differentiated squamous cell carcinoma status post, radiation and chemotherapy. Moderate to severe COPD. Previous history of tobacco use. Severe protein calorie malnutrition. Anorexia/cachexia syndrome of malignancy. Plan: Plan dated 09/11/2023. The patient remains critically ill in the intensive care unit, room 265. The kerrie young apparently did well on his daily interruption of sedation and spontaneous breathing trial yesterday, and they will be repeated today. If the patient has excellent weaning parameters, after 20 or 30 minutes on pressure support of 5 CPAP of 5, and her extubation. The patient apparently is a no code, and is not to be reintubated. We will clarify that with the family prior to extubation. Labs, x-rays, and medications are reviewed. We will continue to follow this patient, and make recommendations along the way. Labs, x-rays, and medications are reviewed. Prognosis is certainly very poor. Plan dated 09/12/2023. 68-year-old critically ill patient who was seen in the intensive care unit, room 265. The patient was successfully extubated yesterday, 09/11/2023. By his own wishes, and family wishes, the patient is not to be reintubated. Currently, the patient is on BiPAP, with settings of 12/5, and 90%. The patient remains on saline at 50 mL an hour, and norepinephrine at 7 mcg/m. Labs, x-rays, and medications are reviewed. The patient's overall prognosis remains guarded. We will continue to follow the patient, and make recommendations along the way. Plan dated 09/13/2023. 68-year-old male, seen today in room 265. The patient remains critically ill. He continues on BiPAP, and apparently according to respiratory therapy, could not tolerate air well for a long period of time. The patient was started on TPN at 30 mL an hour. He is getting saline at 50 mL an hour. BiPAP settings of 12/5, and 75%. Yesterday, he was on 90%. The patient is a DO NOT RESUSCITATE p atient. Hospice consultation in my opinion would be very appropriate. No additional recommendations are made at this time. We will continue to follow the patient, and make recommendations where appropriate. Prognosis is certainly guarded. Plan dated 09/14/2023. The patient is seen today in room 265. Labs, x-rays, and medications are reviewed. We had a talk with the patient and the patient's [id number], about CODE STATUS. No decision was made, the patient is still a no code, but, there is some consideration about hospice care, palliative care. We will continue to follow the patient, make recommendations along the way. The patient continues on AIRVO, at 40 L/m with an FiO2 of 70%. He also continues on TPN at 41 mL an hour. Saline should be converted to D5W, given his developing hypernatremia. We will continue to follow the patient, and make recommendations. Plan dated 09/15/2023. The patient is seen today in room 373. The patient continues on AIRVO. Labs, x-rays, and medications are reviewed. We did speak to family members yesterday about whether or not the family would want a palliative care consult, or hospice consult. They were going to discuss with other family members, and let us know. The patient's overall prognosis remains very poor. We will continue to follow. Laboratory data is reviewed. Medications are reviewed. Time with Patient: Less than 30
[2023-09-15 14:16] VITALS: BMI 18.0
[2023-09-15] MEDS: POTAS-SOD-PHOS 278-164-250 MG 1 EACH PACKET PO SCH ×3 (15:50→18:27)
[2023-09-15] MEDS: POTASSIUM BICARBONATE/CIT AC 20 MEQ TABLET.EFF PO SCH ×2 (15:50→17:29)
[2023-09-15 16:54] LABS: Glucose,Whole Blood 111 mg/dL (70-110)
[2023-09-15] MEDS: MVI, ADULT NO.4 WITH VIT K 10 ML, TRACE (CONC-1ML/DOSE) 1 ML, SODIUM ACETATE 20 MEQ, PO... IV SCH ×7 (18:49)
[2023-09-15 20:08] LABS: Glucose,Whole Blood 48 mg/dL (70-110)
[2023-09-15] MEDS ORDERED: DEXTROSE 50% SYRINGE 50 ML IVP ONE (20:11)
[2023-09-15 20:42] LABS: Glucose,Whole Blood 176 mg/dL (70-110)
--- NOTE | 2023-09-15 21:55 | P.PN ---
Subjective Progress Note Date: 09/15/23 Principal diagnosis: Reason for follow-up with abdominal sepsis Patient is a 68-year-old male with a past medical history significant for squamous cell carcinoma of the lung diagnosed in April 2023 for the patient has received radiation therapy currently undergoing chemotherapy presenting to the ER for evaluation of abdominal pain patient did have CT abdominal pelvis with evidence of intraperitoneal air patient was taken to the OR status post abdominal washout exact site of perforation could not be determined patient admitted to the ICU after surgery On today's evaluation that is 09/15/2023 patient remains to be afebrile, the patient is breathing comfortably currently on Airvo patient denies having any chest pain no worsening cough no nausea vomiting no abdominal pain or diarrhea. Patient did have creatinine 0.28 white count normal at 9.9 as of yesterday Objective - Vital Signs Vital signs: Vital Signs Temp 98.9 F 09/15/23 12:31 Pulse 89 09/15/23 12:31 Resp 20 09/15/23 12:31 BP 109/59 09/15/23 12:31 Pulse Ox 95 09/15/23 12:31 FiO2 75 09/15/23 12:31 Intake & Output 09/14/23 09/15/23 09/15/23 18:59 06:59 18:59 Intake Total 1890 359 100 Output Total 630 500 Balance 1260 -141 100 Weight 68.2 kg 57 kg Intake: IV 757 77 100 Fat Emulsion 20% 250 ml @ 21 21 20.833 mls/hr IV MoTh [facility] Rx#:[id number] Fluconazole in NaCl,Iso- 100 Osm 200 mg In Saline 1 100ml.bag @ 100 mls/hr IVPB DAILY [facility] Rx#: [id number] Piperacillin-Tazobactam 3 100 .375 gm In Sodium Chloride 0.9% 100 ml @ 25 mls/hr IVPB Q8H [facility] Rx#: [id number] Pressure Bag 36 6 Sodium Chloride 0.9% 1, 600 50 000 ml @ 50 mls/hr IV . Q20H [facility] Rx#:[id number] Oral 600 200 TPN/PPN 533 82 Mvi, Adult No.4 with Vit 533 82 K 10 ml Trace (Conc-1Ml/ Dose) 1 ml In Amino Acid 5%-D15w+Lytes*E* 1,000 ml @ 41 mls/hr IV .Q24H [facility] Rx#:[id number] Output: Drainage 30 Abdomen 30 Urine 600 500 Other: Voiding Method Indwelling Catheter External Catheter # Bowel Movements 1 ABP, PAP, CO, CI - Last Documented Arterial Blood Pressure 118/53 - Exam GENERAL DESCRIPTION: Elderly male lying in bed in no distress RESPIRATORY SYSTEM: Unlabored breathing , decreased breath sounds at bases HEART: S1 S2 regular rate and rhythm ABDOMEN: soft , no tenderness EXTREMITIES: No edema feet - Labs CBC & Chem 7: 09/14/23 04:18 09/15/23 08:30 Labs: Abnormal Lab Results - Last 24 Hours (Table) 09/14/23 09/14/23 09/15/23 Range/Units 14:58 14:59 00:16 Potassium 3.2 L (3.5-5.1) mmol/L BUN (9-20) mg/dL Creatinine (0.66-1.25) mg/dL POC Glucose (mg/dL) 211 H 118 H (70-110) mg/dL Calcium (8.4-10.2) mg/dL Phosphorus (2.5-4.5) mg/dL 09/15/23 09/15/23 Range/Units 06:13 08:30 Potassium 3.1 L (3.5-5.1) mmol/L BUN 7 L (9-20) mg/dL Creatinine 0.28 L (0.66-1.25) mg/dL POC Glucose (mg/dL) 161 H (70-110) mg/dL Calcium 7.1 L (8.4-10.2) mg/dL Phosphorus 2.1 L (2.5-4.5) mg/dL Assessment and Plan (1) Sepsis Current Visit: Yes Status: Acute Code(s): A41.9 - SEPSIS, UNSPECIFIED ORGANISM SNOMED Code(s): 25949839 (2) Abdominal abscess Current Visit: Yes Status: Acute Code(s): TBC2185 - SNOMED Code(s): 05481741 Plan: 1patient to the hospital with sepsis in this with tachycardia hypotension leukocytosis presented with abdominal pain and did have a large free intraperitoneal air concerning for perforation and needed to cover for the enteric gram Negative both aerobes and anaerobes 2-patient did have renal insufficiency and high risk of nephrotoxicity 3-Patient is status post laparotomy abdominal washout and abdominal culture currently growing E. coli x 2 one of them is multidrug-resistant along with nasrin erobes and Pat 4the patient remains to be afebrile and the patient white count has normalized. We will keep the patient on Zosyn and Diflucan and continue with supportive care Dictation was produced using [employer] dictation software. please excuse any grammatical, word or spelling errors. Time with Patient: Less than 30
[2023-09-16] MEDS: HEPARIN SODIUM,PORCINE 5,000 UNIT/ML 1 ML VIAL SQ SCH ×4 (00:19→23:09)
[2023-09-16 03:31] LABS: Glucose,Whole Blood 168 mg/dL (70-110)
[2023-09-16] MEDS: PIPERACILLIN-TAZOBACTAM 3.375 GM in SODIUM CHLORIDE 0.9% 100 ML IVPB SCH ×3 (03:41→20:05)
[2023-09-16] MEDS: SODIUM CHLORIDE 0.9% 1,000 ML IV SCH ×2 (03:41→20:08)
[2023-09-16 06:28] LABS: Glucose,Whole Blood 114 mg/dL (70-110)
[2023-09-16] MEDS: PANTOPRAZOLE 40 MG/10 ML VIAL IVP SCH ×2 (09:16→20:05)
[2023-09-16] MEDS: FLUCONAZOLE IN NACL,ISO-OSM 200 MG in SALINE 1 100ML.BAG IVPB SCH (09:16)
[2023-09-16 10:26] LABS: Basophils % (A) 0 %; Eosinophils # (A) 0.1 k/uL (0-0.7); Eosinophils % (A) 0 %; HCT 36.3 % (39.0-53.0); Lymphocytes # (A) 0.4 k/uL (1.0-4.8); Lymphocytes % (A) 3 %; MCH 32.5 pg (25.0-35.0); MCHC 33.1 g/dL (31.0-37.0); MCV 98.2 fL (80.0-100.0); Macrocytosis Slight; Mean Platelet Volume 9.5; Monocytes # (A) 0.3 k/uL (0-1.0); Monocytes % (A) 3 %; Neutrophils # (A) 10.5 k/uL (1.3-7.7); Neutrophils % (A) 93 %; Platelet Count 170 k/uL (150-450); RDW 15.9 % (11.5-15.5); WBC 11.3 k/uL (3.8-10.6)
--- NOTE | 2023-09-16 11:34 | P.PN ---
Progress Note - Text Progress Note Date: 09/16/23 Patient is postop day 7 expiratory laparotomy with drainage of abscess and lysis of adhesions. He is currently on full liquid diet. His abdomen is soft. The wound is intact he is tolerating clear liquid diet and prefers to remain on clears for now.
[2023-09-16 11:43] LABS: Glucose,Whole Blood 104 mg/dL (70-110)
[2023-09-16 12:12] VITALS: RESP 20
--- NOTE | 2023-09-16 12:46 | P.PN ---
Subjective Progress Note Date: 09/16/23 Principal diagnosis: Respiratory failure. 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 He received 1 week of radiation therapy and is currently receiving chemotherapy. He presented to the emergency room earlier today with complaints of abdominal pain for the past 1-2 weeks. Chest x-ray revealed free air under the diaphragm. Computed tomography scan of the chest abdomen pelvis revealed moderate to large free intraperitoneal air. Exact source is unclear. There are numerous small foci of air within the pelvis which could represent small bowel or sigmoid colonic pneumatosis and possible site of hollow viscus perforation. There is reactive mild to moderate abdominopelvic ascites. There is bibasilar consolidation left greater than right. There is an internal area of 6.3 cm fluid. Possibly related to known lung cancer. Consider necrotic t umor versus pulmonary abscess.. Evidence of destruction of the overlying left posterior ninth and 10th ribs. Moderate to severe COPD. Count 16.0. Hemoglobin 15.9. Platelets 541. Sodium 127. Potassium 5.4. Bicarb 23. BUN 35. Creatinine 1.43. Lactic acid 3.3. ProBNP 4600. Viral screen negative. He will be taken urgently to the operating room. He most likely will require prolonged mechanical ventilation postoperatively and we're consulted for the same. He is seen in the preoperative area. He is quite cachectic. BMI of 16.2 kg/m. He is awake and alert. He does have abdominal discomfort. He denies any worsening shortness of breath, cough or congestion. He is maintaining O2 saturations in the 90s on 2 L/m per nasal cannula. At one point he was 85% saturations on room air. He has an albuterol HFA that he uses at home. He is not oxygen dependent. Family is at the bedside. Patient was reevaluated today on 09/09/2023, patient underwent exploratory laparotomy yesterday he was found to have pneumoperitoneum with abdominal abscess and peritonitis, could not find any specific site for perforation, patient had drainage of abdominal abscess with lysis of adhesions. Pos toperatively patient was sent to the ICU on mechanical ventilation. And I was notified about this patient last night and manage his ventilator settings overnight and hemodynamic status is marginal. Patient is now on assist control rate of 20 to tell volume 400 FiO2 45% and PEEP of 5. ABG on 65% FiO2 showed a pO2 of 245 pCO2 39 pH of 7.39. Blood pressure is soft, hence I recommended more fluid boluses to be given, and use norepinephrine if necessary. Patient received at least 2 L of fluid boluses yesterday. Urine output is marginal at 35 mL per hour. He is on Flagyl and Zosyn. Patient is also on propofol at 25 mcg/kg/m IV fluid is at 1 25 mL per hour in the form of 0.9 normal saline. Chest x-ray showed multifocal airspace opacities especially in the left lung, and these are chronic related to his recent lung cancer. Doubt acute infectious process, nonetheless the patient is covered with antibiotics for his abdominal sepsis. Sitting the patient is yet to fully hemodynamically stable, I would not address weaning and extubation today. But I will cut down his propofol and at l east try to assess his mental status. And this will be done on a daily basis. CODE STATUS was changed yesterday after surgery from full code to DO NOT RESUSCITATE CODE STATUS. ABG today as noted above to 45/39/7.33 WBC count is 11.9 hemoglobin 11.9, sodium 133 potassium 4.0 BUN is 25 creatinine 1.23 Reevaluated today on 09/10/23, patient remains in the ICU, intubated and mechanically ventilated. Patient is on assist control rate of 22 tidal volume 400 FiO2 45% and PEEP of 5 ABG showed a pO2 of 139 pCO2 39 pH of 7.36, hence cut down his FiO2 from 45% to 40%. Patient is still hemodynamically unstable requiring norepinephrine at 0.07 mcg/kg/m his IV fluids remains at 1 25 mL per hour using 0.9 normal saline, propofol is at 15 mcg/kg/m. Patient remains on Zosyn and Flagyl he has good urine output, and his labs were all reviewed. WBC count is 9.5 hemoglobin is 11.3. Platelets are 257 basic metabolic profile showed low potassium of 2.8 being addressed accordingly. Renal profile is normal bicarb is 18. Chest x-ray continues to show persistentopacities and pulmonary vascular congestion throughout the lungs more so in the left lower lobe related to his recently diagnosed and treated congenic carcinoma underlying pneumonia is a possibility, but felt to be less likely, nonetheless patient remains on antibiotics including Zosyn and Flagyl. Progress note dated 09/11/2023. 68-year-old male seen in the intensive care unit, room 265. The patient was admitted to the hospital on September 08, it was discovered to have a pneumoperitoneum. Currently, the patient is in the intensive care unit, in room 265, and remains on mechanical ventilation. He went to the operating room on September 08, the day of admission, with a exploratory laparotomy, lysis of adhesions, and drainage of an abscess. Current ventilator settings include the volume assist control, rate 22, tidal volume 400, FiO2 50%, and a PEEP of 5. Blood gases show pO2 of 104, pCO2 41, pH is 7.36. The patient apparently had a daily interruption of sedation yesterday, and apparently did well with his spontaneous breathing trial. The patient is currently on saline at 50 mL an hour, propofol at 30 mcg/kg/m, and norepinephrine at 15 mcg/m. White count 16.8, hemoglobin 11.6, hematocrit 36.5, and platelet count normal. Sodium 140, potassium 3.7, chlorides 111, CO2 21, BUN 9, creatinine 0.5. Calcium is 7.2. Wound cultures show evidence of Escherichia coli, and Pat. Chest x-ray shows a left lower lobe infiltrate. The patient remains on metronidazole, and Zosyn. Progress note dated 09/12/2023. 68-year-old male seen today in room 265. The patient was extubated yesterday, September 11. Currently, he is on BiPAP, with settings of 12/5, and 90%. The patient is receiving saline at 50 mL an hour, and norepinephrine at 7 mcg/m. The patient is not to be reintubated. This is according to his wishes, and family wishes as well. Currently laboratory includes a white count 15.5, hemoglobin 11.6, hematocrit 36.8, and a platelet count of 202,000. Sodium 142, potassium 3.5, chlorides 112, CO2 19, BUN 9, and creatinine 0.45. Phosphorus is 1.9. Wound cultures of the abdomen were positive for Escherichia coli. There is also some anaerobic gram-negative bacilli noted as well. Chest x-ray shows extensive pneumoperitoneum, dense consolidation involving the left mid and lower lung gorman, and patchy pulmonary opacities in the right lower lobe. Progress note dated 09/13/2023. 68-year-old male seen today in room 265. The patient was extubated, September 11, from mechanical ventilation. He is not to be reintubated. The patient remains on BiPAP, with settings of 12/5, and 75%. He was on AIRVO for a very brief period of time yesterday. The patient's getting saline at 50 mL an hour, and TPN at 30 mL an hour. White count 12.4, hemoglobin 11.5, hematocrit 35.2, and platelet count normal. Sodium 146, potassium 3, chlorides 114, CO2 23, BUN 12, creatinine 0.41. Calcium is 7.6, and phosphorus is 1.5. Glucose 175. Wound cultures were positive for Escherichia coli. Chest x-ray shows bilateral multifocal airspace opacities. The chest x-ray is essentially unchanged. Progress note dated 09/14/2023. 68-year-old male seen today in room 265. The patient was extubated from mechanical ventilation on September 11. The patient is not to be reintubated. The patient is a DO NOT RESUSCITATE patient. The patient continues on TPN at 41 mL an hour. The patient goes between AIRVO, at 40 L/m with an FiO2 of 70%, and BiPAP, with settings of 12/5, and 70%. The patient's also getting saline at 50 mL an hour. White count 9.9, hemoglobin 10.5, hematocrit 33, and platelet count 146,000. Sodium 147, potassium 3.3, chlorides 114, CO2 26, BUN 11, and creatinine 0.32. Calcium is 7.3. Phosphorus is 2.1. Abdominal wound cultures were positive for Escherichia coli. Chest x-ray shows changes of COPD, with interstitial density and more extensive pleural parenchymal opacities throughout the left lung. Progress note dated 09/15/2023. 68-year-old male who seen today in room 373. The patient was admitted with a diagnosis of a perforated viscus, head pneumoperitoneum. That was surgically repaired. The patient also has a history of lung cancer. Currently he is a DO NOT RESUSCITATE patient. He's currently on AIRVO, with settings of 60 L/m with an FiO2 of 70%. He's getting TPN at 42 mL an hour and saline at 10 mL an hour. He continues on both Zosyn and fluconazole. Sodium is 143, potassium 3.1, chlorides 107, CO2 28, anion gap 8, BUN 7, creatinine 0.28, and glucose 88. Calcium 7.1, phosphorus 2.1, and magnesium 1.8. Wound cultures are positive for 2 different species of Escherichia coli. In addition, there were fungi noted in the wound cultures. An ultrasound done of the right arm, reveals thrombophlebitis around the PICC line, in the basilic vein, with a nonoccluding thrombus. Progress note dated 09/16/2023. 68-year-old male, seen today in room 373. The patient continues on AIRVO, at 60 L/m with an FiO2 of 75%. The patient's on saline at 50 mL an hour, and getting TPN at 43 mL an hour. Per infectious diseases, the patient continues on fluconazole, and Zosyn. The patient was initially admitted, with pneumoperitoneum. The patient is a no code patient, and would like to be discharged home if possible. Labs today include a white count 11.3, hemoglobin 12, hematocrit 36.3, and a platelet count of 170,000. Objective - Vital Signs Vital signs: Vital Signs Temp 97.4 F L 09/16/23 11:58 Pulse 94 09/16/23 11:58 Resp 20 09/16/23 11:58 BP 105/64 09/16/23 11:58 Pulse Ox 96 09/16/23 11:58 FiO2 72 09/16/23 11:58 Intake & Output 09/15/23 09/16/23 09/16/23 18:59 06:59 18:59 Intake Total 1317.1 Output Total 1400 325 300 Balance -82.9 -325 -300 Weight 57 kg Intake: IV 100 Piperacillin-Tazobactam 3 100 .375 gm In Sodium Chloride 0.9% 100 ml @ 25 mls/hr IVPB Q8H BHARAT Rx#: [id number] Intake, IV Titration 1017.1 Amount Mvi, Adult No.4 with Vit 1017.1 K 10 ml Trace (Conc-1Ml/ Dose) 1 ml Sodium Acetate 20 meq Potassium Phosphate 18 mmol Magnesium Sulfate gm 1 gm Calcium Gluconate 1 gm In Amino Acids 5 %/ Dextrose 20 % 1,000 ml @ 42 mls/hr IV .Q24H BHARAT Rx #:[id number] Oral 200 Output: Drainage 25 Abdomen 25 Urine 1400 300 300 Other: Voiding Method External Catheter External Catheter External Catheter # Bowel Movements 1 ABP, PAP, CO, CI - Last Documented Arterial Blood Pressure 118/53 - Exam No acute distress, currently on AIRVO. The patient has significant medical debility/frailty. HEENT examination is grossly unremarkable. Neck supple. Full range of motion. No adenopathy thyromegaly or neck vein distention. Cardiovascular examination reveals regular rhythm rate. S1-S2 normal. No S3 or S4. No discernible murmur noted. Heart sounds are distant. Heart rate 94 bpm. Lungs reveal scattered bilateral rhonchi. Breath sounds equal. No wheezes or crackles. Saturations are 96 %. Abdomen soft without bowel sounds. No masses or tenderness. Extremities are intact. No cyanosis clubbing or edema. Skin is without rash or lesion. Neurologic examination is brief but nonfocal. - Labs CBC & Chem 7: 09/16/23 09:17 09/15/23 08:30 Labs: Abnormal Lab Results - Last 24 Hours (Table) 09/15/23 09/15/23 09/15/23 Range/Units 16:53 20:01 20:40 WBC (3.8-10.6) k/uL RBC (4.30-5.90) m/uL Hgb (13.0-17.5) gm/dL Hct (39.0-53.0) % RDW (11.5-15.5) % Neutrophils # (1.3-7.7) k/uL Lymphocytes # (1.0-4.8) k/uL POC Glucose (mg/dL) 111 H 48 L 176 H (70-110) mg/dL 09/16/23 09/16/23 09/16/23 Range/Units 03:27 06:26 09:17 WBC 11.3 H (3.8-10.6) k/uL RBC 3.70 L (4.30-5.90) m/uL Hgb 12.0 L (13.0-17.5) gm/dL Hct 36.3 L (39.0-53.0) % RDW 15.9 H (11.5-15.5) % Neutrophils # 10.5 H (1.3-7.7) k/uL Lymphocytes # 0.4 L (1.0-4.8) k/uL POC Glucose (mg/dL) 168 H 114 H (70-110) mg/dL Assessment and Plan Assessment: Postop day #8, status post exploratory laparotomy, lysis of adhesions, drainage of abscess, for pneumoperitoneum. Routine postoperative ventilator management, S/P extubation on 09/11/2023. History of lung cancer, poorly differentiated squamous cell carcinoma status post, radiation and chemotherapy. Moderate to severe COPD. Previous history of tobacco use. Severe protein calorie malnutrition. Anorexia/cachexia syndrome of malignancy. Plan: Plan dated 09/11/2023. The patient remains critically ill in the intensive care unit, room 265. The patient apparently did well on his daily interruption of sedation and spontaneous breathing trial yesterday, and they will be repeated today. If the patient has excellent weaning parameters, after 20 or 30 minutes on pressure support of 5 CPAP of 5, and her extubation. The patient apparently is a no code, and is not to be reintubated. We will clarify that with the family prior to extubation. Labs, x-rays, and medications are reviewed. We will continue to follow this patient, and make recommendations along the way. Labs, x-rays, and medications are reviewed. Prognosis is certainly very poor. Plan dated 09/12/2023. 68-year-old critically ill patient who was seen in the intensive care unit, room 265. The patient was successfully extubated yesterday, 09/11/2023. By his own wishes, and family wishes, the patient is not to be reintubated. Currently, the patient is on BiPAP, with settings of 12/5, and 90%. The patient remains on saline at 50 mL an hour, and norepinephrine at 7 mcg/m. Labs, x-rays, and medications are reviewed. The patient's overall prognosis remains guarded. We will continue to follow the patient, and make recommendations along the way. Plan dated 09/13/2023. 68-year-old male, seen today in room 265. The patient remains critically ill. He continues on BiPAP, and apparently according to respiratory therapy, could not tolerate air well for a long period of time. The patient was started on TPN at 30 mL an hour. He is getting saline at 50 mL an hour. BiPAP settings of 12/5, and 75%. Yesterday, he was on 90%. The patient is a DO NOT RESUSCITATE patient. Hospice consultation in my opinion would be very appropriate. No additional recommendations are made at this time. We will continue to follow the patient, and make recommendations where appropriate. Prognosis is certainly guarded. Plan dated 09/14/2023. The patient is seen today in room 265. Labs, x-rays, and medications are reviewed. We had a talk with the patient and the patient's [id number], about CODE STATUS. No decision was made, the patient is still a no code, but, there is some consideration about hospice care, palliative care. We will continue to follow the patient, make recommendations along the way. The patient continues on AIRVO, at 40 L/m with an FiO2 of 70%. He also continues on TPN at 41 mL an hour. Saline should be converted to D5W, given his developing hypernatremia. We will continue to follow the patient, and make recommendations. Plan dated 09/15/2023. The patient is seen today in room 373. The patient continues on AIRVO. Labs, x-rays, and medications are reviewed. We did speak to family members yesterday about whether or not the family would want a palliative care consult, or hospice consult. They were going to discuss with other family members, and let us know. The patient's overall prognosis remains very poor. We will continue to follow. Laboratory data is reviewed. Medications are reviewed. Plan dated 09/16/2023. The patient is aware of his current situation, and he understands that his situation is rather grim. The patient would like to be discharged home if possible. The patient is currently on AIRVO, but unfortunately, is on 60 L/m with an FiO2 of 75%. He continues on fluconazole and Zosyn. He is getting saline at 50 mL an hour, and TPN at 43 mL an hour. Labs, x-rays, and medications are reviewed. The patient's overall prognosis is poor. We will continue to follow the patient, and make recommendations were appropriate. Time with Patient: Less than 30
[2023-09-16 14:00] LABS: ALT 12 U/L (4-49); AST 17 U/L (17-59); African American GFR (CKD) >90 (>60 ml/min/1.73 sqM); Albumin 1.8 g/dL (3.5-5.0); Alkaline Phosphatase 68 U/L (38-126); Anion Gap 8 mmol/L; Blood Urea Nitrogen 11 mg/dL (9-20); Calcium 7.1 mg/dL (8.4-10.2); Carbon Dioxide 29 mmol/L (22-30); Chloride 104 mmol/L (98-107); Glucose 119 mg/dL (74-99); Non-African American GFR(CKD) >90 (>60 ml/min/1.73 sqM); Potassium 3.2 mmol/L (3.5-5.1); Sodium 141 mmol/L (137-145); Total Bilirubin 0.3 mg/dL (0.2-1.3); Total Protein 4.7 g/dL (6.3-8.2)
[2023-09-16 14:34] LABS: Magnesium 1.8 mg/dL (1.6-2.3); Phosphorus 2.1 mg/dL (2.5-4.5)
[2023-09-16] MEDS ORDERED: POTASSIUM PHOSPHATE 15 MMOL in SODIUM CHLORIDE 0.9% 250 ML IV ONE (16:00)
[2023-09-16] MEDS ORDERED: POTASSIUM CHLORIDE ER 20 MEQ TAB.ER PO SCH ×2 (16:00→18:30)
[2023-09-16] MEDS ORDERED: ZINC OXIDE PASTE (Z-GUARD) 1 APPLIC APPLIC TOPICAL PRN (16:42)
[2023-09-16] MEDS: FAT EMULSION 20% 250 ML IV SCH (17:28)
[2023-09-16 17:57] LABS: Glucose,Whole Blood 111 mg/dL (70-110)
[2023-09-16] MEDS ORDERED: POTASSIUM CHLORIDE 20 MEQ in SODIUM CHLORIDE 0.9% 100 ML IVPB ONE (18:30)
[2023-09-16] MEDS ORDERED: MVI, ADULT NO.4 WITH VIT K 10 ML, TRACE (CONC-1ML/DOSE) 1 ML, SODIUM ACETATE 20 MEQ, PO... IV SCH ×7 (18:30)
[2023-09-17 00:02] LABS: Glucose,Whole Blood 124 mg/dL (70-110)
[2023-09-17] MEDS: PIPERACILLIN-TAZOBACTAM 3.375 GM in SODIUM CHLORIDE 0.9% 100 ML IVPB SCH ×3 (03:53→19:49)
[2023-09-17 06:21] LABS: Glucose,Whole Blood 125 mg/dL (70-110)
[2023-09-17] MEDS: PANTOPRAZOLE 40 MG/10 ML VIAL IVP SCH ×2 (08:53→19:49)
[2023-09-17] MEDS: HEPARIN SODIUM,PORCINE 5,000 UNIT/ML 1 ML VIAL SQ SCH ×3 (08:53→23:30)
[2023-09-17] MEDS: FLUCONAZOLE IN NACL,ISO-OSM 200 MG in SALINE 1 100ML.BAG IVPB SCH (08:54)
[2023-09-17 10:38] LABS: Magnesium 1.9 mg/dL (1.6-2.3); Phosphorus 2.1 mg/dL (2.5-4.5)
--- NOTE | 2023-09-17 10:43 | P.PN ---
Subjective Progress Note Date: 09/17/23 Principal diagnosis: Respiratory failure. 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 He received 1 week of radiation therapy and is currently receiving chemotherapy. He presented to the emergency room earlier today with complaints of abdominal pain for the past 1-2 weeks. Chest x-ray revealed free air under the diaphragm. Computed tomography scan of the chest abdomen pelvis revealed moderate to large free intraperitoneal air. Exact source is unclear. There are numerous small foci of air within the pelvis which could represent small bowel or sigmoid colonic pneumatosis and possible site of hollow viscus perforation. There is reactive mild to moderate abdominopelvic ascites. There is bibasilar consolidation left greater than right. There is an internal area of 6.3 cm fluid. Possibly related to known lung cancer. Consider necrotic t umor versus pulmonary abscess.. Evidence of destruction of the overlying left posterior ninth and 10th ribs. Moderate to severe COPD. Count 16.0. Hemoglobin 15.9. Platelets 541. Sodium 127. Potassium 5.4. Bicarb 23. BUN 35. Creatinine 1.43. Lactic acid 3.3. ProBNP 4600. Viral screen negative. He will be taken urgently to the operating room. He most likely will require prolonged mechanical ventilation postoperatively and we're consulted for the same. He is seen in the preoperative area. He is quite cachectic. BMI of 16.2 kg/m. He is awake and alert. He does have abdominal discomfort. He denies any worsening shortness of breath, cough or congestion. He is maintaining O2 saturations in the 90s on 2 L/m per nasal cannula. At one point he was 85% saturations on room air. He has an albuterol HFA that he uses at home. He is not oxygen dependent. Family is at the bedside. Patient was reevaluated today on 09/09/2023, patient underwent exploratory laparotomy yesterday he was found to have pneumoperitoneum with abdominal abscess and peritonitis, could not find any specific site for perforation, patient had drainage of abdominal abscess with lysis of adhesions. Pos toperatively patient was sent to the ICU on mechanical ventilation. And I was notified about this patient last night and manage his ventilator settings overnight and hemodynamic status is marginal. Patient is now on assist control rate of 20 to tell volume 400 FiO2 45% and PEEP of 5. ABG on 65% FiO2 showed a pO2 of 245 pCO2 39 pH of 7.39. Blood pressure is soft, hence I recommended more fluid boluses to be given, and use norepinephrine if necessary. Patient received at least 2 L of fluid boluses yesterday. Urine output is marginal at 35 mL per hour. He is on Flagyl and Zosyn. Patient is also on propofol at 25 mcg/kg/m IV fluid is at 1 25 mL per hour in the form of 0.9 normal saline. Chest x-ray showed multifocal airspace opacities especially in the left lung, and these are chronic related to his recent lung cancer. Doubt acute infectious process, nonetheless the patient is covered with antibiotics for his abdominal sepsis. Sitting the patient is yet to fully hemodynamically stable, I would not address weaning and extubation today. But I will cut down his propofol and at l east try to assess his mental status. And this will be done on a daily basis. CODE STATUS was changed yesterday after surgery from full code to DO NOT RESUSCITATE CODE STATUS. ABG today as noted above to 45/39/7.33 WBC count is 11.9 hemoglobin 11.9, sodium 133 potassium 4.0 BUN is 25 creatinine 1.23 Reevaluated today on 09/10/23, patient remains in the ICU, intubated and mechanically ventilated. Patient is on assist control rate of 22 tidal volume 400 FiO2 45% and PEEP of 5 ABG showed a pO2 of 139 pCO2 39 pH of 7.36, hence cut down his FiO2 from 45% to 40%. Patient is still hemodynamically unstable requiring norepinephrine at 0.07 mcg/kg/m his IV fluids remains at 1 25 mL per hour using 0.9 normal saline, propofol is at 15 mcg/kg/m. Patient remains on Zosyn and Flagyl he has good urine output, and his labs were all reviewed. WBC count is 9.5 hemoglobin is 11.3. Platelets are 257 basic metabolic profile showed low potassium of 2.8 being addressed accordingly. Renal profile is normal bicarb is 18. Chest x-ray continues to show persistentopacities and pulmonary vascular congestion throughout the lungs more so in the left lower lobe related to his recently diagnosed and treated congenic carcinoma underlying pneumonia is a possibility, but felt to be less likely, nonetheless patient remains on antibiotics including Zosyn and Flagyl. Progress note dated 09/11/2023. 68-year-old male seen in the intensive care unit, room 265. The patient was admitted to the hospital on September 08, it was discovered to have a pneumoperitoneum. Currently, the patient is in the intensive care unit, in room 265, and remains on mechanical ventilation. He went to the operating room on September 08, the day of admission, with a exploratory laparotomy, lysis of adhesions, and drainage of an abscess. Current ventilator settings include the volume assist control, rate 22, tidal volume 400, FiO2 50%, and a PEEP of 5. Blood gases show pO2 of 104, pCO2 41, pH is 7.36. The patient apparently had a daily interruption of sedation yesterday, and apparently did well with his spontaneous breathing trial. The patient is currently on saline at 50 mL an hour, propofol at 30 mcg/kg/m, and norepinephrine at 15 mcg/m. White count 16.8, hemoglobin 11.6, hematocrit 36.5, and platelet count normal. Sodium 140, potassium 3.7, chlorides 111, CO2 21, BUN 9, creatinine 0.5. Calcium is 7.2. Wound cultures show evidence of Escherichia coli, and Pat. Chest x-ray shows a left lower lobe infiltrate. The patient remains on metronidazole, and Zosyn. Progress note dated 09/12/2023. 68-year-old male seen today in room 265. The patient was extubated yesterday, September 11. Currently, he is on BiPAP, with settings of 12/5, and 90%. The patient is receiving saline at 50 mL an hour, and norepinephrine at 7 mcg/m. The patient is not to be reintubated. This is according to his wishes, and family wishes as well. Currently laboratory includes a white count 15.5, hemoglobin 11.6, hematocrit 36.8, and a platelet count of 202,000. Sodium 142, potassium 3.5, chlorides 112, CO2 19, BUN 9, and creatinine 0.45. Phosphorus is 1.9. Wound cultures of the abdomen were positive for Escherichia coli. There is also some anaerobic gram-negative bacilli noted as well. Chest x-ray shows extensive pneumoperitoneum, dense consolidation involving the left mid and lower lung gorman, and patchy pulmonary opacities in the right lower lobe. Progress note dated 09/13/2023. 68-year-old male seen today in room 265. The patient was extubated, September 11, from mechanical ventilation. He is not to be reintubated. The patient remains on BiPAP, with settings of 12/5, and 75%. He was on AIRVO for a very brief period of time yesterday. The patient's getting saline at 50 mL an hour, and TPN at 30 mL an hour. White count 12.4, hemoglobin 11.5, hematocrit 35.2, and platelet count normal. Sodium 146, potassium 3, chlorides 114, CO2 23, BUN 12, creatinine 0.41. Calcium is 7.6, and phosphorus is 1.5. Glucose 175. Wound cultures were positive for Escherichia coli. Chest x-ray shows bilateral multifocal airspace opacities. The chest x-ray is essentially unchanged. Progress note dated 09/14/2023. 68-year-old male seen today in room 265. The patient was extubated from mechanical ventilation on September 11. The patient is not to be reintubated. The patient is a DO NOT RESUSCITATE patient. The patient continues on TPN at 41 mL an hour. The patient goes between AIRVO, at 40 L/m with an FiO2 of 70%, and BiPAP, with settings of 12/5, and 70%. The patient's also getting saline at 50 mL an hour. White count 9.9, hemoglobin 10.5, hematocrit 33, and platelet count 146,000. Sodium 147, potassium 3.3, chlorides 114, CO2 26, BUN 11, and creatinine 0.32. Calcium is 7.3. Phosphorus is 2.1. Abdominal wound cultures were positive for Escherichia coli. Chest x-ray shows changes of COPD, with interstitial density and more extensive pleural parenchymal opacities throughout the left lung. Progress note dated 09/15/2023. 68-year-old male who seen today in room 373. The patient was admitted with a diagnosis of a perforated viscus, head pneumoperitoneum. That was surgically repaired. The patient also has a history of lung cancer. Currently he is a DO NOT RESUSCITATE patient. He's currently on AIRVO, with settings of 60 L/m with an FiO2 of 70%. He's getting TPN at 42 mL an hour and saline at 10 mL an hour. He continues on both Zosyn and fluconazole. Sodium is 143, potassium 3.1, chlorides 107, CO2 28, anion gap 8, BUN 7, creatinine 0.28, and glucose 88. Calcium 7.1, phosphorus 2.1, and magnesium 1.8. Wound cultures are positive for 2 different species of Escherichia coli. In addition, there were fungi noted in the wound cultures. An ultrasound done of the right arm, reveals thrombophlebitis around the PICC line, in the basilic vein, with a nonoccluding thrombus. Progress note dated 09/16/2023. 68-year-old male, seen today in room 373. The patient continues on AIRVO, at 60 L/m with an FiO2 of 75%. The patient's on saline at 50 mL an hour, and getting TPN at 43 mL an hour. Per infectious diseases, the patient continues on fluconazole, and Zosyn. The patient was initially admitted, with pneumoperitoneum. The patient is a no code patient, and would like to be discharged home if possible. Labs today include a white count 11.3, hemoglobin 12, hematocrit 36.3, and a platelet count of 170,000. Progress note dated 09/17/2023. 68-year-old male seen in room 373. The patient continues on AIRVO, with settings of 60 L/m, and FiO2 70%. He is getting TPN at 43 mL an hour. He continues on Diflucan, and Zosyn, as per infectious diseases. He is doing about the same today as yesterday. No new labs today other than a glucose of 125, a phosphorus of 2.1, and magnesium 1.9. Objective - Vital Signs Vital signs: Vital Signs Temp 97.8 F 09/17/23 08:00 Pulse 85 09/17/23 08:00 Resp 20 09/17/23 08:00 BP 105/78 09/17/23 08:00 Pulse Ox 90 L 09/17/23 08:44 FiO2 70 09/17/23 08:44 Intake & Output 09/16/23 09/17/23 09/17/23 18:59 06:59 18:59 Intake Total 4819.6 480 Output Total 610 1170 525 Balance 4209.6 -1170 -45 Weight 63 kg Intake: IV 4050 Fluconazole in NaCl,Iso- 100 Osm 200 mg In Saline 1 100ml.bag @ 100 mls/hr IVPB DAILY [facility] Rx#: [id number] Piperacillin-Tazobactam 3 100 .375 gm In Sodium Chloride 0.9% 100 ml @ 25 mls/hr IVPB Q8H [facility] Rx#: [id number] Sodium Chloride 0.9% 1, 3850 000 ml @ 50 mls/hr IV . Q20H [facility] Rx#:[id number] Intake, IV Titration 769.6 Amount Mvi, Adult No.4 with Vit 519.6 K 10 ml Trace (Conc-1Ml/ Dose) 1 ml Sodium Acetate 20 meq Potassium Phosphate 24 mmol Magnesium Sulfate gm 1.5 gm Calcium Gluconate 1 gm In Amino Acids 5 %/ Dextrose 20 % 1,000 ml @ 42 mls/hr IV .Q24H [facility] Rx #:[id number] Potassium Phosphate 15 250 mmol In Sodium Chloride 0 .9% 250 ml @ 102 mls/hr IV ONCE ONE Rx#:[id number] Oral 480 Output: Drainage 10 120 100 Abdomen 10 120 100 Urine 600 1050 425 Other: Voiding Method External Catheter External Catheter External Catheter # Bowel Movements 1 0 ABP, PAP, CO, CI - Last Documented Arterial Blood Pressure 118/53 - Exam No acute distress, currently on AIRVO. The patient has significant medical debility/frailty. HEENT examination is grossly unremarkable. Neck supple. Full range of motion. No adenopathy thyromegaly or neck vein distention. Cardiovascular examination reveals regular rhythm rate. S1-S2 normal. No S3 or S4. No discernible murmur noted. Heart sounds are distant. Heart rate 85 bpm. Lungs reveal scattered bilateral rhonchi. Breath sounds equal. No wheezes or crackles. Saturations are 93 %. Abdomen soft without bowel sounds. No masses or tenderness. Extremities are intact. No cyanosis clubbing or edema. Skin is without rash or lesion. Neurologic examination is brief but nonfocal. - Labs CBC & Chem 7: 09/16/23 09:17 09/16/23 09:17 Labs: Abnormal Lab Results - Last 24 Hours (Table) 09/16/23 09/16/23 09/16/23 Range/Units 09:17 09:17 17:55 Potassium 3.2 L (3.5-5.1) mmol/L Creatinine 0.31 L (0.66-1.25) mg/dL Glucose 119 H (74-99) mg/dL POC Glucose (mg/dL) 111 H (70-110) mg/dL Calcium 7.1 L (8.4-10.2) mg/dL Phosphorus 2.1 L (2.5-4.5) mg/dL Total Protein 4.7 L (6.3-8.2) g/dL Albumin 1.8 L (3.5-5.0) g/dL 09/17/23 09/17/23 09/17/23 Range/Units 00:00 06:20 07:04 Potassium (3.5-5.1) mmol/L Creatinine (0.66-1.25) mg/dL Glucose (74-99) mg/dL POC Glucose (mg/dL) 124 H 125 H (70-110) mg/dL Calcium (8.4-10.2) mg/dL Phosphorus 2.1 L (2.5-4.5) mg/dL Total Protein (6.3-8.2) g/dL Albumin (3.5-5.0) g/dL Assessment and Plan Assessment: Postop day #9, status post exploratory laparotomy, lysis of adhesions, drainage of abscess, for pneumoperitoneum. Routine postoperative ventilator management, S/P extubation on 09/11/2023. History of lung cancer, poorly differentiated squamous cell carcinoma status post, radiation and chemotherapy. Moderate to severe COPD. Previous history of tobacco use. Severe protein calorie malnutrition. Anorexia/cachexia syndrome of malignancy. Plan: Plan dated 09/11/2023. The patient remains critically ill in the intensive care unit, room 265. The patient apparently did well on his daily interruption of sedation and spontaneous breathing trial yesterday, and they will be repeated today. If the patient has excellent weaning parameters, after 20 or 30 minutes on pressure support of 5 CPAP of 5, and her extubation. The patient apparently is a no code, and is not to be reintubated. We will clarify that with the family prior to extubation. Labs, x-rays, and medications are reviewed. We will continue to follow this patient, and make recommendations along the way. Labs, x-rays, and medications are reviewed. Prognosis is certainly very poor. Plan dated 09/12/2023. 68-year-old critically ill patient who was seen in the intensive care unit, room 265. The patient was successfully extubated yesterday, 09/11/2023. By his own wishes, and family wishes, the patient is not to be reintubated. Currently, the patient is on BiPAP, with settings of 12/5, and 90%. The patient remains on saline at 50 mL an hour, and norepinephrine at 7 mcg/m. Labs, x-rays, and medications are reviewed. The patient's overall prognosis remains guarded. We will continue to follow the patient, and make recommendations along the way. Plan dated 09/13/2023. 68-year-old male, seen today in room 265. The patient remains critically ill. He continues on BiPAP, and apparently according to respiratory therapy, could not tolerate air well for a long period of time. The patient was started on TPN at 30 mL an hour. He is getting saline at 50 mL an hour. BiPAP settings of 12/5, and 75%. Yesterday, he was on 90%. The patient is a DO NOT RESUSCITATE patient. Hospice consultation in my opinion would be very appropriate. No additional recommendations are made at this time. We will continue to follow the patient, and make recommendations where appropriate. Prognosis is certainly guarded. Plan dated 09/14/2023. The patient is seen today in room 265. Labs, x-rays, and medications are reviewed. We had a talk with the patient and the patient's [id number], about CODE STATUS. No decision was made, the patient is still a no code, but, there is some consideration about hospice care, palliative care. We will continue to follow the patient, make recommendations along the way. The patient continues on AIRVO, at 40 L/m with an FiO2 of 70%. He also continues on TPN at 41 mL an hour. Saline should be converted to D5W, given his developing hypernatremia. We will continue to follow the patient, and make recommendations. Plan dated 09/15/2023. The patient is seen today in room 373. The patient continues on AIRVO. Labs, x-rays, and medications are reviewed. We did speak to family members yesterday about whether or not the family would want a palliative care consult, or hospice consult. They were going to discuss with other family members, and let us know. The patient's overall prognosis remains very poor. We will continue to follow. Laboratory data is reviewed. Medications are reviewed. Plan dated 09/16/2023. The patient is aware of his current situation, and he understands that his situation is rather grim. The patient would like to be discharged home if possible. The patient is currently on AIRVO, but unfortunately, is on 60 L/m with an FiO2 of 75%. He continues on fluconazole and Zosyn. He is getting saline at 50 mL an hour, and TPN at 43 mL an hour. Labs, x-rays, and medications are reviewed. The patient's overall prognosis is poor. We will continue to follow the patient, and make recommendations were appropriate. Plan dated 09/17/2023. The patient would like to be discharged home. Unfortunately, the patient continues on AIRVO, and requiring 70% FiO2. We did talk to the patient about hospice. He continues on Diflucan and Zosyn. He is a DO NOT RESUSCITATE patient. Labs, x-rays, and medications are reviewed. We will continue to follow and make recommendations along the way. Prognosis is poor. The patient has a history of lung cancer. Time with Patient: Less than 30
[2023-09-17 11:27] LABS: ALT 12 U/L (4-49); AST 19 U/L (17-59); African American GFR (CKD) >90 (>60 ml/min/1.73 sqM); Albumin 1.8 g/dL (3.5-5.0); Alkaline Phosphatase 62 U/L (38-126); Anion Gap 7 mmol/L; Blood Urea Nitrogen 10 mg/dL (9-20); Carbon Dioxide 27 mmol/L (22-30); Chloride 104 mmol/L (98-107); Glucose 102 mg/dL (74-99); Non-African American GFR(CKD) >90 (>60 ml/min/1.73 sqM); Potassium 3.3 mmol/L (3.5-5.1); Sodium 138 mmol/L (137-145); Total Bilirubin 0.4 mg/dL (0.2-1.3); Total Protein 4.6 g/dL (6.3-8.2)
[2023-09-17 11:46] LABS: Glucose,Whole Blood 123 mg/dL (70-110)
--- NOTE | 2023-09-17 12:58 | PN ---
PROGRESS NOTE DATE OF SERVICE: 09/17/2023 CHIEF COMPLAINT: CA of the lung and intraabdominal abscess. HISTORY OF PRESENT ILLNESS: This gentleman is stable. He is awake and alert, but very weak. PHYSICAL EXAMINATION: GENERAL: Cachectic and pale. LUNGS: Good breath sounds bilaterally. CARDIAC: Normal. IMPRESSION: 1. Intraabdominal abscess, status post drainage. 2. Carcinoma of the left lung. PLAN: Continue with his postoperative management and start to consider discharge planning after the holiday. MMODL / KELBYN: [id number] /
--- NOTE | 2023-09-17 13:14 | PN ---
PROGRESS NOTE DATE OF SERVICE: 09/16/2023 CHIEF COMPLAINT: CA of the lung and intraabdominal abscess. HISTORY OF PRESENT ILLNESS: This gentleman is doing fairly well. He has been stable. PHYSICAL EXAMINATION: VITAL SIGNS: Normal. LUNGS: Breath sounds are heard bilaterally. CARDIAC: Normal. IMPRESSION: 1. Status post drainage of intraabdominal abscess. 2. Carcinoma of the lung. 3. Chronic obstructive pulmonary disease. PLAN: He will likely have to go [facility]. MMODL / IJN: [id number] /
[2023-09-17] MEDS: POTASSIUM PHOSPHATE 15 MMOL in SODIUM CHLORIDE 0.9% 250 ML IV SCH ×2 (13:31→16:14)
--- NOTE | 2023-09-17 15:31 | P.PN ---
Subjective Progress Note Date: 09/17/23 CHIEF COMPLAINT: Pneumoperitoneum HISTORY OF PRESENT ILLNESS: The patient is a 68-year-old male status post drainage of abdominal abscess. He reports low appetite. Right arm is sore. He is on AIRVO. ROS: No reports of nausea and vomiting. No fevers or chills. No new chest pain. PHYSICAL EXAM: VITAL SIGNS: Reviewed CONSTITUTIONAL: Well developed and in no acute distress. EYES: Conjuctivae without sclera icterus. Extraocular movements grossly intact. HEAD, EARS, NOSE, THROAT: Moist buccal mucosa. Head is atraumatic, normocephalic. Hears conversational speech. No nasal drainage. RESPIRATORY: Non-labored respirations and equal bilateral excursions. CARDIOVASCULAR: Palpable 2+ radial pulses. ABDOMEN: No peritonitis. MUSCULOSKELETAL: No gross deformity of the lower extremities noted. No clubbing. No cyanosis. SKIN: Good skin turgor. Well perfused. NEUROLOGIC: Cranial nerves II through XII grossly intact. No focal or lateralizing signs. PSYCH: Appropriate affect. REPORTS: Doppler venous shows superficial venous thrombosis of the right upper extremity basilic vein. CLINICAL LABS: Reviewed. Potassium low, 3.1. ASSESSMENT: 1. Pneumoperitoneum 2. Right basilic vein thrombosis 3. Hypokalemia PLAN: 1. Diet as tolerated 2. Warm compress to right arm 3. Recommend potassium correction Objective - Vital Signs Vital signs: Vital Signs Temp 98 F 09/17/23 11:36 Pulse 93 09/17/23 11:36 Resp 20 09/17/23 11:36 BP 109/61 09/17/23 11:36 Pulse Ox 92 L 09/17/23 11:36 FiO2 75 09/17/23 11:36 Intake & Output 09/16/23 09/17/23 09/17/23 18:59 06:59 18:59 Intake Total 4819.6 480 Output Total 610 1170 925 Balance 4209.6 -1170 -445 Weight 63 kg Intake: IV 4050 Fluconazole in NaCl,Iso- 100 Osm 200 mg In Saline 1 100ml.bag @ 100 mls/hr IVPB DAILY [facility] Rx#: [id number] Piperacillin-Tazobactam 3 100 .375 gm In Sodium Chloride 0.9% 100 ml @ 25 mls/hr IVPB Q8H [facility] Rx#: [id number] Sodium Chloride 0.9% 1, 3850 000 ml @ 50 mls/hr IV . Q20H [facility] Rx#:[id number] Intake, IV Titration 769.6 Amount Mvi, Adult No.4 with Vit 519.6 K 10 ml Trace (Conc-1Ml/ Dose) 1 ml Sodium Acetate 20 meq Potassium Phosphate 24 mmol Magnesium Sulfate gm 1.5 gm Calcium Gluconate 1 gm In Amino Acids 5 %/ Dextrose 20 % 1,000 ml @ 42 mls/hr IV .Q24H [facility] Rx #:[id number] Potassium Phosphate 15 250 mmol In Sodium Chloride 0 .9% 250 ml @ 102 mls/hr IV ONCE ONE Rx#:[id number] Oral 480 Output: Drainage 10 120 200 Abdomen 10 120 200 Urine 600 1050 725 Other: Voiding Method External Catheter External Catheter External Catheter # Bowel Movements 1 0 ABP, PAP, CO, CI - Last Documented Arterial Blood Pressure 118/53 - Labs CBC & Chem 7: 09/16/23 09:17 09/17/23 07:04 Labs: Abnormal Lab Results - Last 24 Hours (Table) 09/16/23 09/17/23 09/17/23 Range/Units 17:55 00:00 06:20 Potassium (3.5-5.1) mmol/L Creatinine (0.66-1.25) mg/dL Glucose (74-99) mg/dL POC Glucose (mg/dL) 111 H 124 H 125 H (70-110) mg/dL Calcium (8.4-10.2) mg/dL Phosphorus (2.5-4.5) mg/dL Total Protein (6.3-8.2) g/dL Albumin (3.5-5.0) g/dL 09/17/23 09/17/23 09/17/23 Range/Units 07:04 07:04 11:45 Potassium 3.3 L (3.5-5.1) mmol/L Creatinine 0.22 L (0.66-1.25) mg/dL Glucose 102 H (74-99) mg/dL POC Glucose (mg/dL) 123 H (70-110) mg/dL Calcium 7.0 L (8.4-10.2) mg/dL Phosphorus 2.1 L (2.5-4.5) mg/dL Total Protein 4.6 L (6.3-8.2) g/dL Albumin 1.8 L (3.5-5.0) g/dL
[2023-09-17 16:26] LABS: Glucose,Whole Blood 113 mg/dL (70-110)
[2023-09-17] MEDS ORDERED: MVI, ADULT NO.4 WITH VIT K 10 ML, TRACE (CONC-1ML/DOSE) 1 ML, POTASSIUM PHOSPHATE 15 MM... IV SCH ×5 (17:30)
[2023-09-17] MEDS ORDERED: MVI, ADULT NO.4 WITH VIT K 10 ML, TRACE (CONC-1ML/DOSE) 1 ML, SODIUM ACETATE 30 MEQ, PO... IV SCH ×7 (17:30)
--- NOTE | 2023-09-17 18:08 | P.PN ---
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 for the patient has received radiation therapy currently undergoing chemotherapy presenting to the ER for evaluation of abdominal pain patient did have CT abdominal pelvis with evidence of intraperitoneal air patient was taken to the OR status post abdominal washout exact site of perforation could not be determined patient admitted to the ICU after surgery On today's evaluation that is 09/16/2023 the patient continues to be afebrile patient is breathing comfortably still requiring high flow nasal cannula oxygen the patient denies having any chest pain no worsening cough or sputum production no nausea vomiting no abdominal pain or diarrhea. The patient white count of 11.3 creatinine 0.31. Objective - Vital Signs Vital signs: Vital Signs Temp 97.4 F L 09/16/23 11:58 Pulse 94 09/16/23 11:58 Resp 20 09/16/23 11:58 BP 105/64 09/16/23 11:58 Pulse Ox 96 09/16/23 11:58 FiO2 72 09/16/23 11:58 Intake & Output 09/15/23 09/16/23 09/16/23 18:59 06:59 18:59 Intake Total 1317.1 Output Total 1400 325 300 Balance -82.9 -325 -300 Weight 57 kg Intake: IV 100 Piperacillin-Tazobactam 3 100 .375 gm In Sodium Chloride 0.9% 100 ml @ 25 mls/hr IVPB Q8H [facility] Rx#: [id number] Intake, IV Titration 1017.1 Amount Mvi, Adult No.4 with Vit 1017.1 K 10 ml Trace (Conc-1Ml/ Dose) 1 ml Sodium Acetate 20 meq Potassium Phosphate 18 mmol Magnesium Sulfate gm 1 gm Calcium Gluconate 1 gm In Amino Acids 5 %/ Dextrose 20 % 1,000 ml @ 42 mls/hr IV .Q24H [facility] Rx #:[id number] Oral 200 Output: Drainage 25 Abdomen 25 Urine 1400 300 300 Other: Voiding Method External Catheter External Catheter External Catheter # Bowel Movements 1 ABP, PAP, CO, CI - Last Documented Arterial Blood Pressure 118/53 - Exam GENERAL DESCRIPTION: Elderly male lying in bed in no distress RESPIRATORY SYSTEM: Unlabored breathing , decreased breath sounds at bases HEART: S1 S2 regular rate and rhythm ABDOMEN: soft , no tenderness EXTREMITIES: No edema feet - Labs CBC & Chem 7: 09/16/23 09:17 09/17/23 07:04 Labs: Abnormal Lab Results - Last 24 Hours (Table) 09/15/23 09/15/23 09/15/23 Range/Units 16:53 20:01 20:40 WBC (3.8-10.6) k/uL RBC (4.30-5.90) m/uL Hgb (13.0-17.5) gm/dL Hct (39.0-53.0) % RDW (11.5-15.5) % Neutrophils # (1.3-7.7) k/uL Lymphocytes # (1.0-4.8) k/uL POC Glucose (mg/dL) 111 H 48 L 176 H (70-110) mg/dL 09/16/23 09/16/23 09/16/23 Range/Units 03:27 06:26 09:17 WBC 11.3 H (3.8-10.6) k/uL RBC 3.70 L (4.30-5.90) m/uL Hgb 12.0 L (13.0-17.5) gm/dL Hct 36.3 L (39.0-53.0) % RDW 15.9 H (11.5-15.5) % Neutrophils # 10.5 H (1.3-7.7) k/uL Lymphocytes # 0.4 L (1.0-4.8) k/uL POC Glucose (mg/dL) 168 H 114 H (70-110) mg/dL Assessment and Plan (1) Sepsis Current Visit: Yes Status: Acute Code(s): A41.9 - SEPSIS, UNSPECIFIED ORGANISM SNOMED Code(s): 45732712 (2) Abdominal abscess Current Visit: Yes Status: Acute Code(s): BQL8013 - SNOMED Code(s): 15977483 Plan: 1patient to the hospital with sepsis in this with tachycardia hypotension leukocytosis presented with abdominal pain and did have a large free intraperitoneal air concerning for perforation and needed to cover for the enteric gram Negative both aerobes and anaerobes 2-patient did have renal insufficiency and high risk of nephrotoxicity 3-Patient is status post laparotomy abdominal washout and abdominal culture cu rrently growing E. coli x 2 one of them is multidrug-resistant along with anaerobes and Pat 4the patient is afebrile white count close to normal patient is currently on Zosyn and Diflucan to continue and monitor clinical course closely Dictation was produced using [employer] dictation software. please excuse any grammatical, word or spelling errors.
--- NOTE | 2023-09-17 18:09 | P.PN ---
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 for the patient has received radiation therapy currently undergoing chemotherapy presenting to the ER for evaluation of abdominal pain patient did have CT abdominal pelvis with evidence of intraperitoneal air patient was taken to the OR status post abdominal washout exact site of perforation could not be determined patient admitted to the ICU after surgery On today's evaluation that is 09/17/2023 patient denies having any fever or any chills, the patient is breathing comfortably however still requiring high flow Airvo nasal cannula oxygen patient denies any chest pain occasional cough no nausea no vomiting no abdominal pain or any diarrhea. Patient white count was 11.3 as of yesterday and creatinine 0.22 Objective - Vital Signs Vital signs: Vital Signs Temp 98 F 09/17/23 11:36 Pulse 93 09/17/23 11:36 Resp 20 09/17/23 11:36 BP 109/61 09/17/23 11:36 Pulse Ox 92 L 09/17/23 11:36 FiO2 75 09/17/23 11:36 Intake & Output 09/16/23 09/17/23 09/17/23 18:59 06:59 18:59 Intake Total 4819.6 480 Output Total 610 1170 525 Balance 4209.6 -1170 -45 Weight 63 kg Intake: IV 4050 Fluconazole in NaCl,Iso- 100 Osm 200 mg In Saline 1 100ml.bag @ 100 mls/hr IVPB DAILY [facility] Rx#: [id number] Piperacillin-Tazobactam 3 100 .375 gm In Sodium Chloride 0.9% 100 ml @ 25 mls/hr IVPB Q8H [facility] Rx#: [id number] Sodium Chloride 0.9% 1, 3850 000 ml @ 50 mls/hr IV . Q20H [facility] Rx#:[id number] Intake, IV Titration 769.6 Amount Mvi, Adult No.4 with Vit 519.6 K 10 ml Trace (Conc-1Ml/ Dose) 1 ml Sodium Acetate 20 meq Potassium Phosphate 24 mmol Magnesium Sulfate gm 1.5 gm Calcium Gluconate 1 gm In Amino Acids 5 %/ Dextrose 20 % 1,000 ml @ 42 mls/hr IV .Q24H [facility] Rx #:[id number] Potassium Phosphate 15 250 mmol In Sodium Chloride 0 .9% 250 ml @ 102 mls/hr IV ONCE ONE Rx#:[id number] Oral 480 Output: Drainage 10 120 100 Abdomen 10 120 100 Urine 600 1050 425 Other: Voiding Method External Catheter External Catheter External Catheter # Bowel Movements 1 0 ABP, PAP, CO, CI - Last Documented Arterial Blood Pressure 118/53 - Exam GENERAL DESCRIPTION: Elderly male lying in bed in no distress RESPIRATORY SYSTEM: Unlabored breathing , decreased breath sounds at bases HEART: S1 S2 regular rate and rhythm ABDOMEN: soft , no tenderness EXTREMITIES: No edema feet - Labs CBC & Chem 7: 09/16/23 09:17 09/17/23 07:04 Labs: Abnormal Lab Results - Last 24 Hours (Table) 09/16/23 09/16/23 09/16/23 Range/Units 09:17 09:17 17:55 Potassium 3.2 L (3.5-5.1) mmol/L Creatinine 0.31 L (0.66-1.25) mg/dL Glucose 119 H (74-99) mg/dL POC Glucose (mg/dL) 111 H (70-110) mg/dL Calcium 7.1 L (8.4-10.2) mg/dL Phosphorus 2.1 L (2.5-4.5) mg/dL Total Protein 4.7 L (6.3-8.2) g/dL Albumin 1.8 L (3.5-5.0) g/dL 09/17/23 09/17/23 09/17/23 Range/Units 00:00 06:20 07:04 Potassium (3.5-5.1) mmol/L Creatinine (0.66-1.25) mg/dL Glucose (74-99) mg/dL POC Glucose (mg/dL) 124 H 125 H (70-110) mg/dL Calcium (8.4-10.2) mg/dL Phosphorus 2.1 L (2.5-4.5) mg/dL Total Protein (6.3-8.2) g/dL Albumin (3.5-5.0) g/dL 09/17/23 09/17/23 Range/Units 07:04 11:45 Potassium 3.3 L (3.5-5.1) mmol/L Creatinine 0.22 L (0.66-1.25) mg/dL Glucose 102 H (74-99) mg/dL POC Glucose (mg/dL) 123 H (70-110) mg/dL Calcium 7.0 L (8.4-10.2) mg/dL Phosphorus (2.5-4.5) mg/dL Total Protein 4.6 L (6.3-8.2) g/dL Albumin 1.8 L (3.5-5.0) g/dL Assessment and Plan (1) Sepsis Current Visit: Yes Status: Acute Code(s): A41.9 - SEPSIS, UNSPECIFIED ORGANISM SNOMED Code(s): 69817823 (2) Abdominal abscess Current Visit: Yes Status: Acute Code(s): RLA2884 - SNOMED Code(s): 48638480 Plan: 1patient to the hospital with sepsis in this with tachycardia hypotension leukocytosis presented with abdominal pain and did have a large free intraperitoneal air concerning for perforation and needed to cover for the enteric gram Negative both aerobes and anaerobes 2-patient did have renal insufficiency and high risk of nephrotoxicity 3-Patient is status post laparotomy abdominal washout and abdominal culture currently growing E. coli x 2 one of them is multidrug-resistant along with anaerobes and Pat 4the patient slowly clinically improving and the patient remains to be afebrile patient to continue with the current treatment of Zosyn and Diflucan hopefully transition to oral antibiotics on discharge Dictation was produced using [email or web address] software. please excuse any grammatical, word or spelling errors.
[2023-09-17] MEDS: SODIUM CHLORIDE 0.9% 1,000 ML IV SCH (19:49)
[2023-09-17 23:55] VITALS: PULSE 92
[2023-09-18 00:05] LABS: Glucose,Whole Blood 138 mg/dL (70-110)
[2023-09-18] MEDS: PIPERACILLIN-TAZOBACTAM 3.375 GM in SODIUM CHLORIDE 0.9% 100 ML IVPB SCH (04:17)
[2023-09-18] MEDS ORDERED: FUROSEMIDE 10 MG/ML 4 ML VIAL IV STA (04:41)
[2023-09-18 05:51] VITALS: BP 93/38; TEMP 98.1
--- NOTE | 2023-09-18 13:33 | P.DS ---
Providers Date of admission: 09/08/23 13:32 Expected date of discharge: 09/18/23 Attending physician: Leeroy Rooney Consults: 09/08/23 13:31 Consult Physician Routine Consulting Provider: Sherin Gamez Consult Reason/Comments: abdominal sepsis Do you want consulting provider notified?: Yes 09/08/23 13:32 Consult Physician Routine Consulting Provider: Karmen Lazcano Consult Reason/Comments: lung cancer Do you want consulting provider notified?: Yes Consult Physician Routine Consulting Provider: Terrence Culver Consult Reason/Comments: medical management Do you want consulting provider notified?: Already Contacted 09/08/23 17:18 Consult Physician Urgent Consulting Provider: Wilfrido Rider Consult Reason/Comments: ICU management Do you want consulting provider notified?: Already Contacted Primary care physician: Terrence Culver - Discharge Diagnosis(es) (1) PAM (acute kidney injury) Status: Acute (2) Abdominal abscess Status: Acute (3) CHF (congestive heart failure) Status: Acute (4) Hypoxic respiratory failure Status: Acute (5) Pneumoperitoneum of unknown etiology Status: Acute (6) Sepsis Status: Acute Hospital Course: He was admitted with development of abdominal pain. He underwent exploratory laparotomy with drainage of abdominal abscess. Patient had global weakness including multiple comorbidities. Per nursing report, patient developed difficulty breathing despite being on maximal AIRVO the morning of 09/18/2023. Patient had been DO NOT RESUSCITATE and transferred to hospice care. Patient at 0600 Plan - Discharge Summary New Discharge Prescriptions: No Action Sennosides/Docusate Sodium [Senna Plus 8.6-50 mg Tablet] 2 tab PO BID@0600,1800 Morphine Sulfate ER [Ms Contin] 15 mg PO BID@0600,1800 Albuterol Inhaler [Ventolin Hfa Inhaler] 1 - 2 puff INHALATION RT-QID PRN PRN Reason: Shortness Of Breath Discharge Medication List Albuterol Inhaler [Ventolin Hfa Inhaler] 1 - 2 puff INHALATION RT-QID PRN 05/12/23 [History] Morphine Sulfate ER [Ms Contin] 15 mg PO BID@0600,1800 09/08/23 [History] Sennosides/Docusate Sodium [Senna Plus 8.6-50 mg Tablet] 2 tab PO BID@0600,1800 09/08/23 [History] Discharge Disposition: - Preliminary Cause of Preliminary Cause of : Sepsis
--- NOTE | 2023-09-19 23:33 | DS ---
DISCHARGE SUMMARY DATE OF : 09/18/2023. CHIEF COMPLAINT: Abdominal pain and sepsis with pneumoperitoneum. HISTORY OF PRESENT ILLNESS AND PHYSICAL EXAMINATION: Details of this man's history and physical can be found in the initial workup. LABORATORY STUDIES: While he was in the hospital, he had laboratory studies, details of which can be found in the laboratory section of his chart. COURSE IN THE HOSPITAL: After admission, he was placed on bedrest, started on intravenous fluids. He was taken to the operating room for incision and drainage of an abscess in the abdomen. 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 He was taken off the ventilator and seemed to be doing fairly well for several days, but then he on the and he had been made a DNR. FINAL DIAGNOSES: 1. Intraabdominal abscess. 2. Septicemia. 3. Carcinoma of the left lung. 4. Tumor cachexia. 5. Severe protein-calorie malnutrition. OPERATION: Incision and drainage of intraabdominal abscess. CONSULTATIONS: Surgery and Intensive Care. MMODAaliyah / CARA: [id number] /
--- NOTE | 2023-09-20 01:25 | PN ---
PROGRESS NOTE DATE OF SERVICE: 09/14/2023 CHIEF COMPLAINT: 1. Status post drainage of intraabdominal abscess with pneumoperitoneum. 2. CA of the left lower lobe of lung. HISTORY OF PRESENT ILLNESS: This gentleman still remains very weak. Vital signs remain quite good. He denies chest pain or abdominal pain. PHYSICAL EXAMINATION: GENERAL: He is cachectic. LUNGS: Breath sounds are diminished at the left base, but heard throughout otherwise. CARDIAC: Normal. ABDOMEN: Seems soft and a drain is in place. IMPRESSION: 1. Status post drainage of intraabdominal abscess with pneumoperitoneum. 2. Carcinoma of the left lower lobe of lung. 3. Chronic obstructive pulmonary disease. PLAN: 1. Continue with ICU management. MMODL / IJN: [id number] /
--- NOTE | 2023-09-21 13:37 | CDI ---
Documentation Clarification Form Date: 09/21/2023 From: Russ Montesinos Phone: Admit Date: 09/08/2023 01:32:00 PM Patient Name: Joel Todd Visit Number: [id number] Discharge Date: 09/18/2023 09:11:00 AM ATTENTION: The Clinical Documentation Specialists (CDI) and [facility] Coding Staff appreciate your assistance in clarifying documentation. Please respond to the clarification below the line at the bottom and electronically sign. The CDI & [facility] Coding staff will review the response and follow-up if needed. Please note: Queries are made part of the Legal Health Record. If you have any questions, please contact the author of this message via ITS. Dr. Euceda, There is documentation of PICC line insertion with multiple impressions of which specific vein it was placed in as well as a right basilic vein thrombosis. Additional clarification is requested regarding which vein the PICC line was placed and if there is any relation to the right basilic vein thrombosis. History/Risk Factors: 68-year-old male presents to the ER with weakness. Apparently has had significant issues with constipation. Over the last 1-2 weeks has had vague abdominal pain. Came to the hospital today for closer evaluation. Clinical Indicators: 09/12 PICC line placement note: Utilizing a 21 gauge needle and sonographic guidance, access in the right brachial vein was achieved and there is placement of a 0.018 guidewire. Impression: Successful PICC line placement under ultrasound performed bedside within the ICU 09/15 RUE Venous Doppler Study: Impression: Thrombophlebitis around the PICC line in basilic vein suggested with nonoccluding thrombus 09/17 Progress note: Assessment: Right basilic vein thrombosis - REPORTS: Doppler venous shows superficial venous thrombosis of the right upper extremity basilic vein Treatment: Warm compress to right arm Can you please clarify which specific vein the PICC line was placed in as well as any relation to the right basilic vein thrombosis, if known? [ ] PICC line inserted into Brachial vein and unrelated to Basilic vein thrombosis [ ] PICC line inserted into Brachial vein and related to Basilic vein thrombosis [ ] PICC line inserted into Basilic vein and unrelated to Basilic vein thrombosis [ ] PICC line inserted into Basilic vein and related to Basilic vein thrombosis [ ] Other, please specify [ ] Unable to determine (Template Last Revised: November 2020) MTDD
== END 2023-09-18 09:11 | disposition expired | DRG 853 ==
LOC: EC 09:45 → 3SCARD 13:32 → 2SICU 15:47 → 3SCARD 09-14 22:54
PROVIDERS: ADMIT Surgery; ATTEND Surgery
PROC: 0D9670Z Drainage of Stomach with Drainage Device, Via Natural or Artificial Opening (ICD-10-PCS; 2023-09-08)
PROC: 0W9G0ZZ Drainage of Peritoneal Cavity, Open Approach (ICD-10-PCS; principal; 2023-09-08 13:20)
PROC: 0DNN0ZZ Release Sigmoid Colon, Open Approach (ICD-10-PCS; principal; 2023-09-08 13:20)
PROC: 3E043XZ Introduction of Vasopressor into Central Vein, Percutaneous Approach (ICD-10-PCS; 2023-09-09)
PROC: 5A1945Z Respiratory Ventilation, 24-96 Consecutive Hours (ICD-10-PCS; 2023-09-09)
PROC: 0BH17EZ Insertion of Endotracheal Airway into Trachea, Via Natural or Artificial Opening (ICD-10-PCS; 2023-09-09)
PROC: 5A09457 Assistance with Respiratory Ventilation, 24-96 Consecutive Hours, Continuous Positive Airway Pressure (ICD-10-PCS; 2023-09-11)
PROC: 02HV33Z Insertion of Infusion Device into Superior Vena Cava, Percutaneous Approach (ICD-10-PCS; 2023-09-12)
DX: A41.51 Sepsis due to Escherichia coli [E. coli] (principal); E43 Unspecified severe protein-calorie malnutrition; K65.1 Peritoneal abscess; R65.21 Severe sepsis with septic shock; J96.21 Acute and chronic respiratory failure with hypoxia; N17.9 Acute kidney failure, unspecified; Z68.1 Body mass index [BMI] 19.9 or less, adult; R64 Cachexia; C34.32 Malignant neoplasm of lower lobe, left bronchus or lung; E87.1 Hypo-osmolality and hyponatremia; T82.898A Other specified complication of vascular prosthetic devices, implants and grafts, initial encounter; I82.611 Acute embolism and thrombosis of superficial veins of right upper extremity; R18.8 Other ascites; E87.20 Acidosis, unspecified; K66.8 Other specified disorders of peritoneum; I50.9 Heart failure, unspecified; I80.9 Phlebitis and thrombophlebitis of unspecified site; I11.0 Hypertensive heart disease with heart failure; J44.9 Chronic obstructive pulmonary disease, unspecified; Z66 Do not resuscitate; Z51.5 Encounter for palliative care; Z11.52 Encounter for screening for COVID-19; E83.39 Other disorders of phosphorus metabolism; E87.5 Hyperkalemia; E87.6 Hypokalemia; K59.00 Constipation, unspecified; K66.0 Peritoneal adhesions (postprocedural) (postinfection); D75.839 Thrombocytosis, unspecified; E86.0 Dehydration; Z92.3 Personal history of irradiation; Z79.891 Long term (current) use of opiate analgesic; Z79.899 Other long term (current) drug therapy; Z71.3 Dietary counseling and surveillance; Z87.891 Personal history of nicotine dependence; Z88.2 Allergy status to sulfonamides
CPT/HCPCS: 36415; 36573; 71045; 71046; 71250; 74176; 80048; 80053; 81001; 82330; 82805; 83605; 83735; 83880; 84100; 84132; 84478; 84484; 85025; 85610; 85730; 87040; 87070; 87075; 87077; 87186; 87205; 87636; 93005; 93306; 94002; 94003; 94640; 94660; 94760; 96365; 96366; 96368; 99291